=== PATIENT | male | born 1955 | race Caucasian/White ===

== ENCOUNTER 2024-10-12 16:37 | Inpatient (IN) | payer MEDICARE, OTHER, SELFPAY ==
--- NOTE | ~2024-10-12 | US_ITS ---
EXAMINATION: US venous doppler UE LT DATE: 10/16/2024 12:56 INDICATION: Left upper extremity edema TECHNIQUE: Terry scale images with and without compression and Doppler images of the left upper extrem ity veins were obtained. COMPARISON: None. FINDINGS: The left internal jugular vein, subclavian vein, axillary vein, brachial veins, basilic vein, cephali c vein, radial vein, and ulnar vein are patent. IMPRESSION: 1. Patent left upper extremity veins. No evidence of deep venous thrombosis. Reviewed, dictated and finalized at location A.
--- NOTE | ~2024-10-12 | CT_ITS ---
Procedure: CT UE LT w con Ordering provider: Eli Latif PA-C History: . likely septic bursitis . Comparison: None. Technique: Thin slice axial CT of the No IV contrast was given. Sagittal and coronal reformatted imag es were also obtained and reviewed. Radiation reduction technique utilized.The dose-length product wa s 661.35 mGy-cm. 100 mL Omnipaque 350 was given IV. Findings: BONES: Highly suggestive fracture in the radial head. JOINT SPACES: SOFT TISSUES: Fat stranding in subcutaneous tissues posteriorly with an abscess formation measuring 2 .6 x 3.6 cm is seen. Ossification of the insertion of the triceps tendon is also noted. IMPRESSION: Abscess seen posterior to the ulnar olecranon measuring 2.6 x 3.6 cm. Further evaluation advised. No evidence of osteomyelitis. Highly suggestive fracture of the radial head. Reviewed, dictated and finalized at location A. IMPRESSION: Abscess seen posterior to the ulnar olecranon measuring 2.6 x 3.6 cm. Further e valuation advised. No evidence of osteomyelitis. Highly suggestive fracture of the radial head.
--- NOTE | ~2024-10-12 | XR_ITS ---
XR elbow LT min 3V Ordering provider: Eli Latif PA-C History: . elbow edema and pain . Comparison: None FINDINGS: BONES: Highly suggestive fracture in the radial head. Clinical correlation and follow-up advised.. JOINT SPACES: Normal. SOFT TISSUES: Soft tissue swelling over the elbow area posteriorly with lucencies. No definite joint effusion. Ossification of the insertion of the triceps tendon. IMPRESSION: Highly suggestive fracture in the radial head. Soft tissue swelling seen posteriorly with lucencies which may indicate cellulitis. Clinical correlat ion advised. Reviewed, dictated and finalized at location A. IMPRESSION: Highly suggestive fracture in the radial head. Soft tissue swelling seen posteriorly with lucencies which may indicate celluli tis. Clinical correlation advised.
--- NOTE | ~2024-10-12 | US_ITS ---
LEFT UPPER EXTREMITY VENOUS ULTRASOUND Ordering provider: Eli Latif PA-C History: . edema, pain, erythema to LUE . Comparison: None. FINDINGS: --JUGULAR: Patent and free of thrombus. Normal compressibility, phasic flow and augmentation. --SUBCLAVIAN: Patent and free of thrombus. Normal compressibility, phasic flow and augmentation. --AXILLARY: Patent and free of thrombus. Normal compressibility, phasic flow and augmentation. --BRACHIAL: Patent and free of thrombus. Normal compressibility, phasic flow and augmentation. --CEPHALIC: Patent and free of thrombus. Normal compressibility, phasic flow and augmentation. --BASILIC: Patent and free of thrombus. Normal compressibility, phasic flow and augmentation. --RADIAL: Patent and free of thrombus. Normal compressibility, phasic flow and augmentation. --ULNAR: Patent and free of thrombus. Normal compressibility, phasic flow and augmentation. The IMPRESSION: Negative left upper extremity venous US. No deep vein thrombosis. Reviewed, dictated and finalized at location A.
--- NOTE | ~2024-10-12 | US_ITS ---
EXAMINATION: US elbow asp inj w image LT DATE: 10/14/2024 13:50 INDICATION: Infected left olecranon bursa TECHNIQUE: The procedure including the risks and benefits was discussed with the patient. Risks discu ssed included bleeding, infection and allergic reaction. The patient understood the risks and agreed to proceed. The skin overlying the left olecranon bursa was prepped and draped in usual sterile fash ion. Anesthetic was administered with 1% lidocaine subcutaneously. An 18 gauge needle was advanced under continuous ultrasound observation into the complex bursal fluid collection. 4.5 mm of opaque t hick yellow purulent appearing fluid was obtained sent to lab for Gram stain, cultures and crystal an alysis. The needle was removed and the entry site was cleaned and dressed. Post procedure ultrasoun d demonstrated no hemorrhage. FINDINGS: Ultrasound images demonstrate aspiration needle advanced into an approximately 4.5 x 3.5 x 1.5 cm complex hypoechoic fluid collection with multiple internal echogenic foci, several of these wi th posterior dirty shadowing suggesting tiny air bubbles. Subsequent images demonstrate the aspiratio n needle within the fluid collection. During the aspiration there was the sound of gas bubbles being sucked into the needle. IMPRESSION: 1. Successful Ultrasound-guided aspiration of a left olecranon bursa yielding 4.5 mL purulent appeari ng fluid suspicious for septic bursitis. Reviewed, dictated and finalized at location A. IMPRESSION: 1. Successful Ultrasound-guided aspiration of a left olecranon bursa yielding 4 .5 mL purulent appearing fluid suspicious for septic bursitis.
[2024-10-12 16:59] VITALS: BP 142/64; PULSE 82; RESP 16; TEMP 37; O2SAT 98
--- OUTSIDE RECORDS SUMMARY | 2024-10-12 17:45 | XMS_ITS | Encounter Summary ---
Author Name [facility] Organization [facility] [place] [facility] [place] Address [address] [place] [id number] Care Team Providers Care Mortgage Closing Clerk Name Role Phone KARLO OLVERA Primary Care Provider Unavailabl e JACOB SELLERS Primary Care Provider Unavailabl e Insurance Providers: All historical and current Section Date Range: From patient's date of to the date document was created. This section includes the names of all active insurance providers for the patient. Insurance Provider Type of Coverage Plan Name Start of Policy Coverage End of Policy Coverage Group Number Member ID Insurance Provider's Telephone Number Policy Bailey's Name Patient's Relationship to Policy Bailey CHUY KRAMER - [place]SE [place] SPECIAL [place] CHUY CASTILLO Dec 19, 2011 CHUY KRAMER [id number] [id number] KARLO FLOR PATIENT MEDICARE (WNR) MEDICARE (M) PART A Jan 13, 2018 PART A [id number] KARLO FLOR PATIENT MEDICARE (WNR) MEDICARE (M) PART B Jan 13, 2018 PART B [id number] [phone] KARLO FLOR PATIENT MEDICARE (WNR) MEDICARE (M) PART A Jan 13, 2018 PART A [id number] KARLO FLOR PATIENT Selected Encounter This section includes the information on record at [place] for the Encounter. Date/Time Encounter Type Encounter Description Reason Pro vider Source Jul 29, 2024 08:42 AM Outpatient Encounter COMMUNITY CARE CONSULT IHE Encounter Template Text not used by [facility] Plan of Treatment: Future Appointments (+ 6 months) and Future Tests (+/- 45 days) The Plan of Treatment section includes future care activities for the patient from all [place] treatmentfacilities. This section includes future appointments and future orders which are active, pending or scheduled. Future Appointments This section includes appointments that were scheduled to occur 6 months from the date of the Encounter, up to a maximum of 20 appointments. The data comes from all [facility] facilities. Appointment Date/Time Appointment Type Appointme nt Facility Name Aug 23, 2024 10:00 AM AMBULATORY - NONE [facility] Sep 11, 2024 09:05 AM AMBULATORY - NONE Rebeca RENTERIA [facility] September 23, 2024 10:30 AM AMBULATORY - NONE [place] [facility] Dec 04, 2024 09:30 AM AMBULATORY - NONE [place] [facility] Jan 01, 2025 10:30 AM AMBULATORY - NONE [place] [facility] Radiology Reports: +/- 30 days of the encounter Radiology Reports For cases when an order for radiology services may have been completed prior to the date of the Encounter, the report list includes the Radiology Reports that were completed up to 30 days before dateof the Encounter. For cases when an order for radiology services may have been completed after the date of the Encounter, the report list also includes the Radiology Reports that were completed up to30 days after date of the Encounter. The data comes from all [facility]. Date/Time Radiology Report Provider Source Aug 23, 2024 09:57 AM LDCT LUNG CANCER S CREENING: KARLO FLOR [id number] -[id number] M Exm Date: AUG 23, 2024@09:57 Req Phys: KARLO OLVERA Loc: [facility] RAD CT [facility] (Req'g Loc) Img Loc: [facility] CT Service: [place] [address] (Case [id number] COMPLETE)LDCT LUNG CANCER SCREENING (CT Detailed) CPT:51000 Reason for Study: Screen for Lung Cancer Clinical History: Clinical History: 1.Date of last CT Scan or Ultrasound PRIOR EXAM DATE:2023 Patient's age is between 50-80: Current age: 68 2.REQUESTED EXAM: CT THORAX LOW DOSE LUNG CANCER SCREENING 3.REASON FOR STUDY: Cancer Screening 4.PATIENT HISTORY: History of 20 or more packs/years of smoking, Patient is currently smoking or quit smoking within the last 15 years 5.Patient Weight: 206.7 lb [93.76 kg] (07/04/2023 08:01) I have read, understand and agree to the steps outlined in the pre-procedure info. Patient phone: Patient Address: [address] [place] [address] Report Status: Verified Date Reported: AUG 28, 2024 Date Verified: AUG 28, 2024 Consultative Sales Associate E-Sig:/ES/JACOB ARMENDARIZ DO Report: EXAM: LDCT LUNG CANCER SCREENING ADDITIONAL HISTORY: N/A COMPARISON: 08/05/2023 and imaging dating back 07/26/2021. PROTOCOL: Screening protocol, low dose, non-contrast CT chest was performed in accordance with Lung-Rads 2021. Additional coronal and sagittal reconstructions. MIP reconstructions were reviewed. Secondary computer-aided detection post-processing used. DOSE PARAMETERS: Dose summary: DLP: 58.1 mGy-cm INDEX NODULE: Location: Left Upper Lobe. Series: 3 Image: 116 Density: Solid. Solid diameter (average): 4.6 mm Other characteristics: N/A Change: Unchanged Comments: Accounting for differences in imaging technique quantitative algorithm methodology, direct comparison with long-term stability. OTHER NODULES: None. Changes prior granulomatous exposure. LUNG/AIRWAY FINDINGS: No lung consolidation. No pleural effusion or pneumothorax. Central airways patent. EMPHYSEMA: Mild HEART, MEDIASTINUM AND LYMPH NODES: No appreciable pericardial effusion. Tiny aortic valve calcification. Mitral annular calcifications. VISUAL CORONARY ARTERY CALCIFICATIONS: Severe UPPER ABDOMEN: Limited upper abdomen stable. Hepatic steatosis. BONES AND SOFT TISSUES: Degenerative changes. OTHER FINDINGS: None significant Impression: LUNG-RADS: 2: Benign FINDINGS: No new or enlarged lung nodules. RECOMMENDATION: One year follow-up low dose CT, if patient meets screening criteria. LUNG-RADS MODIFIER: N/A OTHER SIGNIFICANT FINDINGS AND RECOMMENDATIONS: None significant. Report Sign Date: 08/28/2024 14:58 EDT Jacob Armendariz Primary Diagnostic Code: LUNGRADS 2: BENIGN APPEARANCE OR BEHAVIOR Primary Interpreting Staff: JACOB ARMENDARIZ DO, RADIOLOGY (Consultative Sales Associate) /JACOB MARTIN [facility] Encounter Notes: All associated encounter notes This section contains the clinical notes associated to the Encounter. Date/Time Encounter Note(s) Provider Source Jul 29, 2024 08:42 AM NONVA NOTE: LOCAL TITLE: COMMUNITY CARE-CARE COORDINATION PLAN NOTE STANDARD TITLE: NONVA NOTE DATE OF NOTE: JUL 29, 2024@08:42 ENTRY DATE: JUL 29, 2024@08:42:38 AUTHOR: CHETAN AVILA EXP COSIGNER: URGENCY: STATUS: COMPLETED Community Care Consult: ENT Consult No: [id number] [facility] Referral #: [id number] Chief Complaint: Unspecified Disorder of Tympanic Membrane, right Ear Patient Admitted? No Level of Care Coordination Moderate Care Coordination was determined from: Chart Review Facility Community Care Office Contact Care Coordination Point of Contact: TEAM 9 ext 4 Services: Basic Care Coordination Services Monitoring and coordination of Rehab/PT Services Direct communication to referring provider Care management, if appropriate Plan: - Services as indicated above -REFDOCS available in RM -Pending contact and appointment. - care coordination communicated for [facility] staff to schedule. - Ongoing care and evaluation will be individualized based upon need and evaluation of recommendations of community provider /michelle/ CHETAN AVILA, RN REGISTERED NURSE Signed: 07/29/2024 08:43 CHETAN AVILA [facility]
--- OUTSIDE RECORDS SUMMARY | 2024-10-12 17:45 | XMS_ITS | Data Portability ---
Author Organization SANA [facility] [facility], [address] [place] [address] Assessment No assessment recorded. Plan of Treatment Reminders Order Date Submit Date Provider Last Modified By Organization Details Last Modified Time Details Appointments None recorded. Lab None recorded. Referral None recorded. Procedures None recorded. Surgeries None recorded. Imaging None recorded. Medication Orders Diflucan 150 mg tablet 2021 [id number], [address] , [place], [address], 09:44:22 ketoconazol e 2 % topical cream 2021 [id number], [address], [place], [address], 09:44:22 Patient TargetsNo targets recorded. Patient Instructions Encounter Date Encounter Id Patient Instructions Last Modified By Organization Details Last Modified Time 05/02/2022 [id number] hives: care instructions Not available 05/02/2022 09:44:21 Use Lotrimin if you run out of Ketoconazole cream. See PCP 1 week for clearing. Go to the ER if symptoms worsen. Not available 05/02/2022 09:47:42 Reason for Referral None Reported. Problems No Known Problems Medical Equipment None Reported. Allergies No known drug allergies Medications Name Sig Start Date Stop Date Status Note LastModified by Organization Details LastModified Time Diflucan 150 mg tablet Take 1 tablet every day by oral route for 7 days. 2021 active Not Available Not Available Not Avai lable ketoconazole 2 % topical cream Apply 1 application every day by topical route for 14 days. 2021 active Not Available Not Available Not Avai lable Vitals Date Recorded Body height Body mass index (BMI) Body weight Body temperature Oxygen saturation Oxygen saturation in Arterial blood by Pulse oximetry Heart rate Respiratory rate Systolic blood pressure Diastolic blood pressure Provider Name and Address Organization Details Last Updated DateTime 2 177.8 cm 29 kg/m2 02050.6 6 g 97.1 [degF] 100 % 100 % 64 /min 15 /min 124 mm[Hg] 80 mm[Hg] ONDINA Carter [facility] 09:29:02 Social History Question Answer Notes LastModified by [employer] Details LastModified Time Tobacco Smoking Status Current Every Day Smoker [facility] 05/02/2022 09:30:00 How Much Tobacco Do You Smoke? 1 PPD Information not available 05/02/2022 Are You Currently In School? No [email or web address] Information not available 05/02/2022 Sex: Unknown Functional Status Question Answer Note LastModified by [employer] Details LastModified Time Do you use any illicit or recreational drugs? No [email or web address] Information not available 05/02/2022 Do you or have you ever used any other forms of tobacco or nicotine? No [email or web address] Information not available 05/02/2022 What is your level of alcohol consumption? None [email or web address] Information not available 05/02/2022 Are you currently employed? No [email or web address] Information not available 05/02/2022 Mental Status None recorded. Family History Relationship Description Onset Age of this Age Resolved Age Notes LastModified by Organization Details LastModified Time Father No current problems or disability [email or web address] Not available 09:29:27 Mother No current problems or disability [email or web address] Not available 09:29:27 Medical History No medical history recorded. Immunizations Vaccine Type Date Status Note Provider Nam e and Address Organization Details Recorded Time Influenza, adjuvanted, quadrivalent, PF 02/28/2022 completed SANA [facility] 05/02/2022 09:29:11 COVID-19, mRNA, LNP-S, PF, 30 mcg/0.3 mL dose 02/10/2021 completed ONDINA ELDER null, [place] - [facility] 05/02/2022 09:29:11 COVID-19, mRNA, LNP-S, bivalent, PF, 30 mcg/0.3 mL dose 01/26/2022 completed ONDINA ELDER null, [place] - [facility] 05/02/2022 09:29:11 COVID-19, mRNA, LNP-S, PF, 30 mcg/0.3 mL dose 07/27/2020 completed ONDINA ESTRADAERS null, [place] - [facility] 05/02/2022 09:29:11 COVID-19, mRNA, LNP-S, PF, 30 mcg/0.3 mL dose 07/06/2020 completed ONDINA ELDER null, [place] - [facility] 05/02/2022 09:29:11 Influenza, split virus, quadrivalent, PF 02/28/2020 completed ONDINA ELDER null, [place] - [facility] 05/02/2022 09:29:11 COVID-19, mRNA, LNP-S, PF, 30 mcg/0.3 mL dose, bree-sucrose 08/27/2021 completed ONDINA ELDER null, [place] - [facility] 05/02/2022 09:29:11 Influenza, split virus, quadrivalent, PF 03/03/2020 completed ONDINA ELDER null, [place] - [facility] 05/02/2022 09:29:12 Past Encounters Encounter ID Performer Location Encounter Start Date Encounter Closed Date Diagnosis/Indication Diagnosis SNOMED-CT Code Diagnosis ICD10 Code Diagnosis Note [id number] [address] [facility] [address] [place] [address] 03/13/2021 08:51:04 03/13/2021 10:07:09 [id number] [address] [place] [address] 07/19/2021 09:05:34 07/19/2021 10:45:17 [id number] SANA REGALADO [address] [place] [address] 05/02/2022 08:58:39 05/02/2022 09:51:01 Onychomycosis due to dermatophyte 635361318 B35.1 Health Concerns Section Related Observation LastModified by Organization Detai ls LastModified Time None Recorded Concern Status LastModified by Organization Details LastModified Time None Recorded Advance Directives Directive None Recorded Payers Insurance Date Sequence Insurance Name Policy Number Policy Bailey Covered Member ID Bailey Member ID Guarantor Name 05/02/2022 1 [employer] (MEDICARE REPLACEMENT /ADVANTAGE - PPO) [id number] Pradip Florian [id number] Pradip Florian 05/24/2022 [facility] - [facility] Pradip Florian [id number] Pradip Florian Notes Date Note Type Note Provider Name and Address Organization Details Recorded Time 2 text/html UC Rash/Skin LesionReported bypatient.source of patient informationInformation obtained from patient; Patient arrived at Urgent Care ambulatory Context:no new detergent or skin product; no recent change in medication; no exposure to hair dye; no expsoure to new clothes/jewelry; no recent travel; no recent illness; no pets/animals in home; not affiliated with chemicals/pesticides Associated Symptoms:no fever; no fatigue SANA REGALADO [address] [place] [address] [place], [address], [place] - [facility] 05/02/2022 09:48:07
--- OUTSIDE RECORDS SUMMARY | 2024-10-12 17:45 | XMS_ITS | Encounter Summary ---
Author Name [facility] [place] Organization [facility] [place] Address [address] [place] [address] Care Team Providers Care Installer Helper Name Role Phone JACOB SELLERS Primary Care Provider KARLO Davis Primary Care Provider Unavailkerrie fenton Insurance Providers: All historical and current Section [...] to Policy Bailey CHUY KRAMER - JOSE [place] SPECIAL CLASS CHUY CASTILLO Dec 19, 2013 CHUY KRAMER [id number] KARLO FLOR PATIENT MEDICARE (WNR) MEDICARE (M) PART A Jan 13, 2018 PART A [id number] KARLO FLOR PATIENT MEDICARE (WNR) MEDICARE (M) PART A Jan 13, 2018 PART A [id number] KARLO FLOR PATIENT MEDICARE (WNR) MEDICARE (M) PART B Jan 13, 2018 PART B [id number] [phone] KARLO FLOR PATIENT Selected Encounter This section includes the information on record at [place] for the Encounter. Date/Time Encounter Type Encounter Description Reason Pro vider Source October 11, 2024 12:51 PM Outpatient Encounter TELEPHONE PRIMARY CARE IHE Encounter Template Text not used by [place] Plan of Treatment: Future Appointments (+ 6 months) and Future Tests (+/- 45 days) The Plan of Treatment section includes future care activities for the patient from all [place] treatmentfacilities. This section includes future appointments and future orders which are active, pending or scheduled. Future Appointments This section includes appointments that were scheduled to occur 6 months from the date of the Encounter, up to a maximum of 20 appointments. The data comes from all [place] treatment facilities. Appointment Date/Time Appointment Type Appointme nt Facility Name Dec 04, 2024 09:30 AM AMBULATORY - NONE [facility] Jan 01, 2025 10:30 AM AMBULATORY - NONE [facility] Active, Pending, and Scheduled Orders This section includes a listing of several types of active, pending, and scheduled orders, including clinic medications orders, diagnostic test orders, procedure orders and consult orders; where the start date of the order is 45 days before the date of the Encounter or 45 days after the date of theEncounter. The data comes from all [place] treatment facilities. Test Date/Time Test Type Test Details Facility Name September 18, 2024 07:38 AM Pharmacy - Clinic Medication Order [facility] Encounter Notes: All associated encounter notes This section contains the clinical notes associated to the Encounter. Date/Time Encounter Note(s) Provider Source October 11, 2024 12:51 PM PRIMARY CARE NOTE: LOCAL TITLE: PACT CARE COORDINATION NOTE STANDARD TITLE: PRIMARY CARE NOTE DATE OF NOTE: OCTOBER 11, 2024@12:51 ENTRY DATE: OCTOBER 11, 2024@12:54:14 AUTHOR: JEREMIAH SHELBY COSIGNER: URGENCY: STATUS: COMPLETED PACT CARE COORDINATION NOTE Has ADDENDA -- CARE COORDINATION -- CHART REVIEW - REASON: Received below notification from HAS: Other: [facility], AMELIA, REQUESTING APPOINTMENT FOR DUE TO LEFT ELBOW SWELLING/ PAIN. STATES VISITED URGENT CARE AND WAS TOLD TO F/U WITH PCP. PLEASE ADVISE, THANK YOU CAN Score and Probability of Event (1 year potential): 15/1% Plan of Care: Called to discuss/assess, no answer. Left HIPAA compliant message with contact information. Does the patient and/or caregiver understand the plan of care and agree with pharmacologic and non-pharmacologic strategies discussed? N/A FOLLOW-UP: Follow-up RN telephone call: When returns call, engineering technical writer will continue to reach out to to follow up TIME SPENT: 5-10 Minutes /michelle/ JEREMIAH SHELBY RN REGISTERED NURSE Signed: 10/11/2024 12:57 10/11/2024 ADDENDUM STATUS: UNSIGNED You may not VIEW this UNSIGNED Addendum. 10/11/2024 ADDENDUM STATUS: COMPLETED VET RETURNED YOUR CALL /michelle/ BECCA TIERNEY Signed: 10/11/2024 13:20 Receipt Acknowledged By: * AWAITING SIGNATURE * JEREMIAH SHELBY LORI A [facility]
--- OUTSIDE RECORDS SUMMARY | 2024-10-12 17:45 | XMS_ITS | Continuity of Care Document ---
Author Name [facility] Organization [facility] Care Team Providers Care Supervisor Blasting Name Role Phone [facility] Unavailable Unavailable Problems Combined list of problems from Department of Defense and Veterans Affairs facilities. It does not include entries that were removed or entered in error. Problem Status Onset Date Problem Type Date of Resolution Comments Source AAA screen nl 2017 Active Condition A pr 2022 Entered By: KARLO OLVERA Comment: Negative AAA screening 2022 [facility] Cigarette smoker Active Condition Jun 28, 2021 Entered By: KARLO OLVERA Comment: 1 ppd since 13 y/o [facility] Current every day smoker Active Condition [facility] Erectile Dysfunction (SCT 184368977) Active Condition [facility] Erectile dysfunction (SNOMED CT 264727623) Active Condition [facility] Exposure to potentially hazardous substance (SCT 007007097705455) Active Condition Aug 17 Entered By: ROSA FRIEDMAN Comment: Entered automatically through TAM Problem List documentation program [facility] Family history: Bowel cancer Active Condition Jun 28, 2021 Entered By: KARLO OLVERA Comment: father [facility] History of Polyp of Colon (SCT 389211864) Active Condition Jul 04, 2023 Entered By: KARLO OLVERA Comment: colon 20, repeat 7 yrs [facility] Hypogonadism Active Condition [facility] Impaired Fasting Glucose (SCT 657260197) Active Condition [facility] Lipidemia Active Condition [facility] Mixed Hyperlipidemia (SCT 608824476) Active Condition [facility] Orellana - Nonalcoholic Steatohepatitis (SCT 440562851) Active Condition [facility] Obesity (SCT 775107603) Active Condition [facility] Secondary erythrocytosis Active Condition [facility] Sensorineural hearing loss of bilateral ears Active Condition [facility] Urinary calculus Active Condition [facility] Diagnosis: ICD-10-CM R68.89 Other general symptoms and signs Active Diagnosis [facility] Diagnosis: ICD-10-CM Z23 Encounter for immunization Active Diagnosis [facility] Diagnosis: ICD-10-CM F17.210 Nicotine dependence, cigarettes, uncomplicated Active Diagnosis [facility] Diagnosis: ICD-10-CM H73.91 Unspecified disorder of tympanic membrane, right ear Active Diagnosis [facility] Diagnosis: ICD-10-CM E66.9 Obesity, unspecified Active Diagnosis [facility] Diagnosis: ICD-10-CM H60.391 Other infective otitis externa, right ear Active Diagnosis [facility] Diagnosis: ICD-10-CM H90.3 Sensorineural hearing loss, bilateral Active Diagnosis [facility] Diagnosis: ICD-10-CM E78.2 Mixed hyperlipidemia Active Diagnosis [facility] Medications Combined list of outpatient medications from Department of Defense and Veterans Affairs facilities.Medications provided include 1) outpatient medications from the last 15 months, and 2) patient-reported medications. Medication Details Route Status Patient Instructions Prescription Expires Prescription Number Last Dispense Date Ordering Provider Order Date Order Qty Source ASPIRIN 81MG TAB,EC TAKE ONE TABLET BY MOUTH EVERY DAY FOR HEART ORAL ACTIVE 06/12/2025 [id number] 5 JAK OLVERA 2024 120 [facility] ASPIRIN 81MG TAB,EC TAKE ONE TABLET BY MOUTH ONCE A DAY ORAL ACTIVE JACOB SELLERS MD 2015 [facility] ATORVASTATI N CA 40MG TAB TAKE ONE-HALF TABLET BY MOUTH DAILY AT BEDTIME FOR CHOLESTE ROL ORAL ACTIVE 06/12/2025 [id number] 5 JAK OLVERA 2024 45 [facility] ATORVASTATI N CA 40MG TAB TAKE ONE-HALF TABLET BY MOUTH DAILY AT BEDTIME FOR CHOLESTE ROL ORAL DISCONT INUED 07/04/2024 [id number] 4 JAK OLVERA 2023 45 [facility] AZITHROMYCI N 250MG TAB TAKE TWO TABLETS BY MOUTH DAILY FOR 1 DAY, THEN TAKE ONE TABLET EVERY DAY FOR 4 DAYS FOR INFECTIO N ORAL DISCONT INUED 02/02/2024 [id number] 4 JAK OLVERA 2023 6 [facility] AZITHROMYCI N 250MG TAB TAKE TWO TABLETS BY MOUTH DAILY FOR 1 DAY, THEN TAKE ONE TABLET EVERY DAY FOR 4 DAYS FOR INFECTIO N HERITA GE RX FOR RELEASE ONLY ORAL 02/07/2024 [id number] 4 JAK OLVERA 2023 6 [facility] AZITHROMYCI N 250MG TAB,PKT,6 TAKE CONTENTS OF PACK BY MOUTH DIRECTED FOR INFECTIO N ORAL DISCONT INUED (EDIT) 02/02/2024 [id number] 4 JAK OLVERA 2023 1 [facility] AZITHROMYCI N 250MG TAB,PKT,6 TAKE CONTENTS OF PACK BY MOUTH DIRECTED ORAL ACTIVE JAK OLVERA 2023 [facility] BETAMETHASO NE DIPROPIONAT E 0.05%/CLOTR IMAZOLE 1% CREAM,TOP APPLY SMALL AMOUNT TO AFFECTED AREA(S) EVERY DAY FOR SKIN CONDITIO N TOPICA L 07/31/2024 [id number] 4 JAK OLVERA 2023 45 [facility] FISH OIL 1000MG (500MG DHA/EPA) CAP,ORAL TAKE 1 CAPSULE BY MOUTH TWICE A DAY ORAL ACTIVE JACOB SELLERS MD 2017 [facility] HC 1%/N-MYCIN 3.5MG/POLYM YX 97825KCS/ML SUSP,OTIC INSTILL 3 DROPS IN EACH EAR EVERY 8 HOURS FOR EAR INFECTIO N HERITA GE RX FOR RELEASE ONLY AURICU LAR (OTIC) ACTIVE 01/08/2025 [id number] 4 JAK OLVERA 2023 10 [facility] HC 1%/N-MYCIN 3.5MG/POLYM YX 10705PJS/ML SUSP,OTIC INSTILL 3 DROPS IN EACH EAR EVERY 8 HOURS FOR EAR INFECTIO N AURICU LAR (OTIC) DISCONT INUED 01/03/2025 [id number] 4 JAK OLVERA 2023 10 [facility] HC 1%/N-MYCIN 3.5MG/POLYM YX 58827TMZ/ML SUSP,OTIC INSTILL 3 DROPS IN EACH EAR EVERY 8 HOURS AURICU LAR (OTIC) ACTIVE JAK OLVERA 2023 [facility] MULTIVITAMI NS CAP/TAB TAKE ONE TABLET BY MOUTH ONCE A DAY ORAL ACTIVE JACOB SELLERS MD 2015 [facility] SILDENAFIL CITRATE 100MG TAB TAKE ONE TABLET BY MOUTH ONE HOUR BEFORE SEXUAL RELATION S - FOR ERECTILE DYSFUNCT ION. DO NOT TAKE MORE THAN 1 DOSE PER DAY (*90 DAY SUPPLY*) ORAL ACTIVE 06/12/2025 [id number] 5 JAK OLVERA 2024 18 [facility] SILDENAFIL CITRATE 100MG TAB TAKE ONE TABLET BY MOUTH ONE HOUR BEFORE SEXUAL RELATION S - FOR ERECTILE DYSFUNCT ION. DO NOT TAKE MORE THAN 1 DOSE PER DAY (*90 DAY SUPPLY*) ORAL DISCONT INUED 08/01/2024 [id number] 4 JAK OLVERA 2023 18 [facility] Immunizations Combined list of available immunizations from the Department of Defense and Veterans Affairs facilities. Immunization Series Date Given Administered By Site Reaction Lot Number CVX Code Drug Bulk Plant Agent Status Comments Source ZOSTER RECOMBINANT 1 2024 ADELITA BAÑUELOS LEFT DELTO ID [id number] 187 complet ed [facility] COVID-19 (MODERNA), MRNA, LNP-S, PF, 50 MCG/0.5 ML (AGES 12+ YEARS) 1 2023 312 complet ed HISTORICA L INFORMATI ON - FROM OTHER REGISTRY, [facility] INFLUENZA, HIGH-DOSE, TRIVALENT, PF 1 2023 135 complet ed HISTORICA L INFORMATI ON - FROM OTHER REGISTRY, [facility] COVID-19 (MODERNA), MRNA, LNP-S, PF, 50 MCG/0.5 ML (AGES 12+ YEARS) 1 2022 LEFT DELTO ID 312 complet ed HISTORICA L INFORMATI ON - FROM OTHER REGISTRY, Lot#: [id number] Mfr: [employer] Expiratio n Date: 08/21/23 [facility] INFLUENZA, HIGH-DOSE, QUADRIVALENT 2022 LEFT DELTO ID 197 complet ed HISTORICA L INFORMATI ON - FROM OTHER REGISTRY, Lot#: [id number] Mfr: [employer] Expiratio n Date: 11/12/23 [facility] INFLUENZA VACCINE, QUADRIVALENT, ADJUVANTED 2021 205 complet ed [facility] COVID-19 (PFIZER), MRNA, LNP-S, BIVALENT BOOSTER, PF, 30 MCG/0.3 ML DOSE 1 2021 300 complet ed HISTORICA L INFORMATI ON - FROM OTHER REGISTRY, [place] [facility] COVID-19 (PFIZER), MRNA, LNP-S, PF, 30 MCG/0.3 ML DOSE, NUHA-SUCROSE (AGES 12+ YEARS) 4 2021 217 complet ed HISTORICA L INFORMATI ON - FROM OTHER REGISTRY, [facility] INFLUENZA, INJECTABLE, QUADRIVALENT, PRESERVATIVE FREE 2020 150 complet ed [facility] INFLUENZA, UNSPECIFIED FORMULATION 2020 88 complet ed [facility] COVID-19 (PFIZER), MRNA, LNP-S, PF, 30 MCG/0.3 ML DOSE 3 2020 208 complet ed [facility] COVID-19 (PFIZER), MRNA, LNP-S, PF, 30 MCG/0.3 ML DOSE 2 2020 208 complet ed [facility] COVID-19 (PFIZER), MRNA, LNP-S, PF, 30 MCG/0.3 ML DOSE 1 2020 208 complet ed [facility] INFLUENZA, INJECTABLE, QUADRIVALENT, PRESERVATIVE FREE 2019 150 complet ed HISTORICA L INFORMATI ON - FROM OTHER REGISTRY, [facility] INFLUENZA, INJECTABLE, QUADRIVALENT, PRESERVATIVE FREE 1 2019 150 complet ed HISTORICA L INFORMATI ON - FROM OTHER REGISTRY, [facility] INFLUENZA, UNSPECIFIED FORMULATION 2019 88 complet ed [facility] INFLUENZA, INJECTABLE, QUADRIVALENT, PRESERVATIVE FREE 2018 150 complet ed [facility] INFLUENZA, INJECTABLE, QUADRIVALENT, PRESERVATIVE FREE 2017 150 complet ed [facility] INFLUENZA, INJECTABLE, QUADRIVALENT, PRESERVATIVE FREE 2016 150 complet ed [facility] ZOSTER LIVE 2016 121 complet ed [place] [facility] PNEUMOCOCCAL POLYSACCHARID E [id number] 2015 33 complet ed yes [facility] INFLUENZA, SEASONAL, INJECTABLE, PRESERVATIVE FREE 2015 140 complet ed [facility] INFLUENZA, UNSPECIFIED FORMULATION 2015 88 complet ed [facility] PNEUMOCOCCAL CONJUGATE PCV 13 2015 133 complet ed [facility] INFLUENZA, UNSPECIFIED FORMULATION 2014 88 complet ed [facility] TDAP 2014 115 complet ed [facility] Results Combined list of recent chemistry, hematology and other laboratory results from Department of Defense and Veterans Affairs, ranging from 15 months to all on record, depending upon the facility. Order Name Results Value Reference Range Date Interpretation Specimen Comments Source COMPREHEN SIVE METABOLIC PANEL SODIUM [MOLES/VOL UME] IN SERUM OR PLASMA 140 meq/L 136 - 144 06/04 Specimen Type: PLASMA Comment: See EVAL Ordering Provider: ESTEE OLVERA Report Released Date/Time: Jul 04, 2023 08:32 AM Reporting Lab: [facility] [address] [facility] [address] Performing Lab: [facility] [address] [facility] [address] [facility] COMPREHEN SIVE METABOLIC PANEL POTASSIUM [MOLES/VOL UME] IN SERUM OR PLASMA 4.3 meq/L 3.6 - 5.1 06/04 Specimen Type: PLASMA Comment: See EVAL Ordering Provider: ESTEE OLVERA Report Released Date/Time: Jul 04, 2023 08:32 AM Reporting Lab: [facility] [address] [address] Performing Lab: [facility] [place] [phone] [place] [address] COMPREHEN SIVE METABOLIC PANEL CHLORIDE [MOLES/VOL UME] IN SERUM OR PLASMA 106 meq/L 98 - 107 06/04 Specimen Type: PLASMA Comment: See EVAL Ordering Provider: ESTEE OLVERA Report Released Date/Time: Jul 04, 2023 08:32 AM Reporting Lab: [facility] [place] [phone] Performing Lab: [facility] [place] [id number] [place] [address] COMPREHEN SIVE METABOLIC PANEL CARBON DIOXIDE, TOTAL [MOLES/VOL UME] IN SERUM OR PLASMA 23 meq/L 22 - 32 06/04 Specimen Type: PLASMA Comment: See EVAL Ordering Provider: ESTEE OLVERA Report Released Date/Time: Jul 04, 2023 08:32 AM Reporting Lab: [facility] [address] [address] Performing Lab: [facility] [place] [id number] [place] [address] COMPREHEN SIVE METABOLIC PANEL ANION GAP IN SERUM OR PLASMA 11 meq/L 4 - 13 06/04 Specimen Type: PLASMA Comment: See EVAL Ordering Provider: ESTEE OLVERA Report Released Date/Time: Jul 04, 2023 08:32 AM Reporting Lab: [facility] [address] [address] Performing Lab: [facility] [address] [id number] [place] [address] COMPREHEN SIVE METABOLIC PANEL GLUCOSE [MASS/VOLU ME] IN SERUM OR PLASMA 152 mg/dL 72 - 105 06/04 H Specimen Type: PLASMA Comment: See EVAL Ordering Provider: ESTEE OLVERA Report Released Date/Time: Jul 04, 2023 08:32 AM Reporting Lab: [facility] [address] [address] Performing Lab: [facility] [address] [address] [facility] COMPREHEN SIVE METABOLIC PANEL UREA NITROGEN [MASS/VOLU ME] IN SERUM OR PLASMA 10 mg/dL 7 - 25 06/04 Specimen Type: PLASMA Comment: See EVAL Ordering Provider: ESTEE OLVERA Report Released Date/Time: Jul 04, 2023 08:32 AM Reporting Lab: [facility] [address] [address] Performing Lab: [facility] [address] [address] [facility] COMPREHEN SIVE METABOLIC PANEL CREATININE [MASS/VOLU ME] IN SERUM OR PLASMA 0.84 mg/dL 0.7 - 1.3 06/04 Specimen Type: PLASMA Comment: See EVAL Ordering Provider: ESTEE OLVERA Report Released Date/Time: Jul 04, 2023 08:32 AM Reporting Lab: [facility] [address] [address] Performing Lab: [facility] [address] [address] [facility] COMPREHEN SIVE METABOLIC PANEL CALCIUM [MASS/VOLU ME] IN SERUM OR PLASMA 9.5 mg/dL 8.6 - 10.4 06/04 Specimen Type: PLASMA Comment: See EVAL Ordering Provider: ESTEE OLVERA Report Released Date/Time: Jul 04, 2023 08:32 AM Reporting Lab: [facility] [address] [address] Performing Lab: [facility] [address] [phone] [place] [address] COMPREHEN SIVE METABOLIC PANEL PROTEIN [MASS/VOLU ME] IN SERUM OR PLASMA 6.7 g/dL 6.0 - 8.2 06/04 Specimen Type: PLASMA Comment: See EVAL Ordering Provider: ESTEE OLVERA Report Released Date/Time: Jul 04, 2023 08:32 AM Reporting Lab: [facility] [place] [phone] Performing Lab: [facility] [place] [phone] [place] [address] COMPREHEN SIVE METABOLIC PANEL ALBUMIN [MASS/VOLU ME] IN SERUM OR PLASMA 4.2 g/dL 3.5 - 5.0 06/04 Specimen Type: PLASMA Comment: See EVAL Ordering Provider: ESTEE OLVERA Report Released Date/Time: Jul 04, 2023 08:32 AM Reporting Lab: [facility] [place] [phone] Performing Lab: [facility] [place] [phone] [place] [address] COMPREHEN SIVE METABOLIC PANEL ALKALINE PHOSPHATAS E [ENZYMATIC ACTIVITY/V OLUME] IN SERUM OR PLASMA 63 U/L 35 - 104 06/04 Specimen Type: PLASMA Comment: See EVAL Ordering Provider: ESTEE OLVERA Report Released Date/Time: Jul 04, 2023 08:32 AM Reporting Lab: [facility] [place] [phone] Performing Lab: [facility] [place] [phone] [place] [address] COMPREHEN SIVE METABOLIC PANEL ASPARTATE AMINOTRANS FERASE [ENZYMATIC ACTIVITY/V OLUME] IN SERUM OR PLASMA 25 U/L 13 - 36 06/04 Specimen Type: PLASMA Comment: See EVAL Ordering Provider: ESTEE OLVERA Report Released Date/Time: Jul 04, 2023 08:32 AM Reporting Lab: [facility] [address] [address] Performing Lab: [facility] [place] [phone] [place] [address] COMPREHEN SIVE METABOLIC PANEL ALANINE AMINOTRANS FERASE [ENZYMATIC ACTIVITY/V OLUME] IN SERUM OR PLASMA 49 U/L 7 - 49 06/04 Specimen Type: PLASMA Comment: See EVAL Ordering Provider: ESTEE OLVERA Report Released Date/Time: Jul 04, 2023 08:32 AM Reporting Lab: [facility] [place] [phone] Performing Lab: [facility] [address] COMPREHEN SIVE METABOLIC PANEL BILIRUBIN. TOTAL [MASS/VOLU ME] IN SERUM OR PLASMA 0.5 mg/dL 0.2 - 1.3 06/04 Specimen Type: PLASMA Comment: See EVAL Ordering Provider: ESTEE OLVERA Report Released Date/Time: Jul 04, 2023 08:32 AM Reporting Lab: [facility] [place] [phone] Performing Lab: [facility] [place] [phone] [place] [address] COMPREHEN SIVE METABOLIC PANEL GLOMERULAR FILTRATION RATE/1.73 SQ M.PREDICTE D [VOLUME RATE/AREA] IN SERUM, PLASMA OR BLOOD BY CREATININE -BASED FORMULA (CKD-EPI 2020) >=90 06/04 Specimen Type: PLASMA Comment: See EVAL Ordering Provider: ESTEE OLVERA Report Released Date/Time: Jul 04, 2023 08:32 AM Reporting Lab: [facility] [place] [address] Performing Lab: [facility] [place] [phone] [place] [address] CBC (AUTO DIFF) LEUKOCYTES [#/VOLUME] IN BLOOD 8.3 10*3/uL 4.00 - 10.60 06/04 Specimen Type: BLOOD No comment entered. Ordering Provider: ESTEE OLVERA Report Released Date/Time: Jul 04, 2023 08:32 AM Reporting Lab: [facility] [place] [address] Performing Lab: [facility] [address] CBC (AUTO DIFF) ERYTHROCYT ES [#/VOLUME] IN BLOOD BY AUTOMATED COUNT 5.38 10*6/uL 4.23 - 5.75 06/04 Specimen Type: BLOOD No comment entered. Ordering Provider: ESTEE OLVERA Report Released Date/Time: Jul 04, 2023 08:32 AM Reporting Lab: [facility] [place] [address] Performing Lab: [facility] [address] CBC (AUTO DIFF) HEMOGLOBIN [MASS/VOLU ME] IN BLOOD 15.1 g/dL 12.8 - 17.0 06/04 Specimen Type: BLOOD No comment entered. Ordering Provider: ESTEE OLVERA Report Released Date/Time: Jul 04, 2023 08:32 AM Reporting Lab: [facility] [place] [address] Performing Lab: [facility] [address] CBC (AUTO DIFF) HEMATOCRIT [VOLUME FRACTION] OF BLOOD 46.5 %{vol} 39.3 - 50.0 06/04 Specimen Type: BLOOD No comment entered. Ordering Provider: ESTEE OLVERA Report Released Date/Time: Jul 04, 2023 08:32 AM Reporting Lab: [facility] [place] [address] Performing Lab: [facility] [address] CBC (AUTO DIFF) MCV [ENTITIC VOLUME] BY AUTOMATED COUNT 86.4 fL 79.7 - 99.5 06/04 Specimen Type: BLOOD No comment entered. Ordering Provider: ESTEE OLVERA Report Released Date/Time: Jul 04, 2023 08:32 AM Reporting Lab: [facility] [place] [phone] Performing Lab: [facility] [place] [phone] CBC (AUTO DIFF) MCH [ENTITIC MASS] BY AUTOMATED COUNT 28.1 pg 25.5 - 33.6 06/04 Specimen Type: BLOOD No comment entered. Ordering Provider: ESTEE OLVERA Report Released Date/Time: Jul 04, 2023 08:32 AM Reporting Lab: [facility] [place] [phone] Performing Lab: [facility] [place] [id number] [place] [address] CBC (AUTO DIFF) MCHC [MASS/VOLU ME] BY AUTOMATED COUNT 32.5 g/dL 30.9 - 35.1 06/04 Specimen Type: BLOOD No comment entered. Ordering Provider: ESTEE OLVERA Report Released Date/Time: Jul 04, 2023 08:32 AM Reporting Lab: [facility] [place] [phone] Performing Lab: [facility] [place] [phone] [place] [address] CBC (AUTO DIFF) PLATELETS [#/VOLUME] IN BLOOD BY AUTOMATED COUNT 193 10*3/uL 160 - 410 06/04 Specimen Type: BLOOD No comment entered. Ordering Provider: ESTEE OLVERA Report Released Date/Time: Jul 04, 2023 08:32 AM Reporting Lab: [facility] [place] [phone] Performing Lab: [facility] [place] [phone] CBC (AUTO DIFF) ERYTHROCYT E DISTRIBUTI ON WIDTH [RATIO] BY AUTOMATED COUNT 40.8 fL 37.1 - 49.0 06/04 Specimen Type: BLOOD No comment entered. Ordering Provider: ESTEE OLVERA Report Released Date/Time: Jul 04, 2023 08:32 AM Reporting Lab: [facility] [place] [address] Performing Lab: [facility] [address] CBC (AUTO DIFF) PLATELET MEAN VOLUME [ENTITIC VOLUME] IN BLOOD BY AUTOMATED COUNT 11.4 fL 8.9 - 12.3 06/04 Specimen Type: BLOOD No comment entered. Ordering Provider: ESTEE OLVERA Report Released Date/Time: Jul 04, 2023 08:32 AM Reporting Lab: [facility] [place] [address] Performing Lab: [facility] [address] CBC (AUTO DIFF) NUCLEATED ERYTHROCYT ES [#/VOLUME] IN BLOOD BY AUTOMATED COUNT 0.00 10*3/uL 0.00 - 0.12 06/04 Specimen Type: BLOOD No comment entered. Ordering Provider: ESTEE OLVERA Report Released Date/Time: Jul 04, 2023 08:32 AM Reporting Lab: [facility] [place] [address] Performing Lab: [facility] [address] CBC (AUTO DIFF) NUCLEATED ERYTHROCYT ES [PRESENCE] IN BLOOD BY AUTOMATED COUNT 0.0 /100{WBC s} 0.0 - 0.2 06/04 Specimen Type: BLOOD No comment entered. Ordering Provider: ESTEE OLVERA Report Released Date/Time: Jul 04, 2023 08:32 AM Reporting Lab: [facility] [place] [address] Performing Lab: [facility] [address] CBC (AUTO DIFF) NEUTROPHIL S [#/VOLUME] IN BLOOD BY AUTOMATED COUNT 4.68 10*3/uL 2.2 - 7.4 06/04 Specimen Type: BLOOD No comment entered. Ordering Provider: ESTEE OLVERA Report Released Date/Time: Jul 04, 2023 08:32 AM Reporting Lab: [facility] [place] [address] Performing Lab: [facility] [address] CBC (AUTO DIFF) LYMPHOCYTE S [#/VOLUME] IN BLOOD BY AUTOMATED COUNT 2.22 10*3/uL 1.0 - 3.7 06/04 Specimen Type: BLOOD No comment entered. Ordering Provider: ESTEE OLVERA Report Released Date/Time: Jul 04, 2023 08:32 AM Reporting Lab: [facility] [place] [address] Performing Lab: [facility] [address] CBC (AUTO DIFF) MONOCYTES [#/VOLUME] IN BLOOD BY AUTOMATED COUNT 0.58 10*3/uL 0.3 - 0.9 06/04 Specimen Type: BLOOD No comment entered. Ordering Provider: ESTEE OLVERA Report Released Date/Time: Jul 04, 2023 08:32 AM Reporting Lab: [facility] [place] [address] Performing Lab: [facility] [address] CBC (AUTO DIFF) EOSINOPHIL S [#/VOLUME] IN BLOOD BY AUTOMATED COUNT 0.71 10*3/uL 0.0 - 0.5 06/04 H Specimen Type: BLOOD No comment entered. Ordering Provider: ESTEE OLVERA Report Released Date/Time: Jul 04, 2023 08:32 AM Reporting Lab: [facility] [place] [address] Performing Lab: [facility] [address] CBC (AUTO DIFF) BASOPHILS [#/VOLUME] IN BLOOD BY AUTOMATED COUNT 0.08 10*3/uL 0.0 - 0.1 06/04 Specimen Type: BLOOD No comment entered. Ordering Provider: ESTEE OLVERA Report Released Date/Time: Jul 04, 2023 08:32 AM Reporting Lab: [facility] [place] [address] Performing Lab: [facility] [address] CBC (AUTO DIFF) NEUTROPHIL S/100 LEUKOCYTES IN BLOOD 56.4 39.3 - 73.5 06/04 Specimen Type: BLOOD No comment entered. Ordering Provider: ESTEE OLVERA Report Released Date/Time: Jul 04, 2023 08:32 AM Reporting Lab: [facility] [place] [address] Performing Lab: [facility] [address] CBC (AUTO DIFF) LYMPHOCYTE S/100 LEUKOCYTES IN BLOOD BY AUTOMATED COUNT 26.8 16.2 - 48.2 06/04 Specimen Type: BLOOD No comment entered. Ordering Provider: ESTEE OLVERA Report Released Date/Time: Jul 04, 2023 08:32 AM Reporting Lab: [facility] [place] [id number] Performing Lab: [facility] [address] CBC (AUTO DIFF) MONOCYTES/ 100 LEUKOCYTES IN BLOOD BY AUTOMATED COUNT 7.0 5.2 - 11.4 06/04 Specimen Type: BLOOD No comment entered. Ordering Provider: ESTEE OLVERA Report Released Date/Time: Jul 04, 2023 08:32 AM Reporting Lab: [facility] [place] [id number] Performing Lab: [facility] [address] CBC (AUTO DIFF) EOSINOPHIL S/100 LEUKOCYTES IN BLOOD BY AUTOMATED COUNT 8.6 0.4 - 7.6 06/04 H Specimen Type: BLOOD No comment entered. Ordering Provider: ESTEE OLVERA Report Released Date/Time: Jul 04, 2023 08:32 AM Reporting Lab: [facility] [place] [id number] Performing Lab: [facility] [address] CBC (AUTO DIFF) BASOPHILS/ 100 LEUKOCYTES IN BLOOD BY AUTOMATED COUNT 1.0 0.1 - 1.2 06/04 Specimen Type: BLOOD No comment entered. Ordering Provider: ESTEE OLVERA Report Released Date/Time: Jul 04, 2023 08:32 AM Reporting Lab: [facility] [place] [address] Performing Lab: [facility] [address] CBC (AUTO DIFF) IMMATURE GRANULOCYT ES [#/VOLUME] IN BLOOD BY AUTOMATED COUNT 0.02 10*3/uL 0.0 - 0.1 06/04 Specimen Type: BLOOD No comment entered. Ordering Provider: ESTEE OLVERA Report Released Date/Time: Jul 04, 2023 08:32 AM Reporting Lab: [facility] [place] [address] Performing Lab: [facility] [address] CBC (AUTO DIFF) IMMATURE GRANULOCYT ES/100 LEUKOCYTES IN BLOOD 0.2 0.0 - 0.7 06/04 Specimen Type: BLOOD No comment entered. Ordering Provider: ESTEE OLVERA Report Released Date/Time: Jul 04, 2023 08:32 AM Reporting Lab: [facility] [address] [address] Performing Lab: [facility] [place] [phone] [place] [address] CBC (AUTO DIFF) SERVICE COMMENT DONE 06/04 Specimen Type: BLOOD No comment entered. Ordering Provider: ESTEE OLVERA Report Released Date/Time: Jul 04, 2023 08:32 AM Reporting Lab: [facility] [address] [address] Performing Lab: [facility] [address] [address] [facility] LIPID PANEL A, non-fasti ng CHOLESTERO L [MASS/VOLU ME] IN SERUM OR PLASMA 142 mg/dL 06/04 Specimen Type: PLASMA Comment: See EVAL Ordering Provider: ESTEE OLVERA Report Released Date/Time: Jul 04, 2023 08:32 AM Reporting Lab: [facility] [address] [address] Performing Lab: [facility] [place] [phone] [facility] LIPID PANEL A, non-fasti ng CHOLESTERO L IN HDL [MASS/VOLU ME] IN SERUM OR PLASMA 40 mg/dL 06/04 Specimen Type: PLASMA Comment: See EVAL Ordering Provider: ETSEE OLVERA Report Released Date/Time: Jul 04, 2023 08:32 AM Reporting Lab: [facility] [address] [address] Performing Lab: [facility] [address] [address] [facility] LIPID PANEL A, non-fasti ng CHOLESTERO L IN LDL [MASS/VOLU ME] IN SERUM OR PLASMA BY DIRECT ASSAY 79 mg/dL 06/04 Specimen Type: PLASMA Comment: See EVAL Ordering Provider: ESTEE OLVERA Report Released Date/Time: Jul 04, 2023 08:32 AM Reporting Lab: [facility] [place] [phone] Performing Lab: [facility] [place] [id number] [place] [address] LIPID PANEL A, non-fasti ng CHOLESTERO L.TOTAL/CH OLESTEROL IN HDL [MASS RATIO] IN SERUM OR PLASMA 3.6 0 - 4.9 06/04 Specimen Type: PLASMA Comment: See EVAL Ordering Provider: ESTEE OLVERA Report Released Date/Time: Jul 04, 2023 08:32 AM Reporting Lab: [facility] [address] [address] Performing Lab: [facility] [place] [id number] [place] [address] PROSTATIC SPECIFIC ANTIGEN PROSTATE SPECIFIC AG [MASS/VOLU ME] IN SERUM OR PLASMA 0.4 ng/mL 0.0 - 4.0 06/04 Specimen Type: SERUM Comment: FREE PSA NOT INDICATED IF TOTAL PSA IS <3.75 OR >10.5 ng/mL Ordering Provider: ESTEE OLVERA Report Released Date/Time: Jul 04, 2023 08:32 AM Reporting Lab: [facility] [address] [address] Performing Lab: [facility] [place] [id number] [place] [address] URINALYSI S, REFLEX C&S IF INDICATED COLOR OF URINE Light-Ye llow 06/04 Specimen Type: URINE Comment: Urine chemistry testing performed on [employer] AX-4030. Ordering Provider: ESTEE OLVERA Report Released Date/Time: Jul 04, 2023 08:32 AM Reporting Lab: [facility] [address] [address] Performing Lab: [facility] [address] URINALYSI S, REFLEX C&S IF INDICATED SPECIFIC GRAVITY OF URINE 1.021 1.001 - 1.035 06/04 Specimen Type: URINE Comment: Urine chemistry testing performed on [facility]. Ordering Provider: ESTEE OLVERA Report Released Date/Time: Jul 04, 2023 08:32 AM Reporting Lab: [facility] [place] [phone] Performing Lab: [facility] [address] URINALYSI S, REFLEX C&S IF INDICATED PH OF URINE 5.5 5.0 - 7.0 06/04 Specimen Type: URINE Comment: Urine chemistry testing performed on [facility] AX-4030. Ordering Provider: ESTEE OLVERA Report Released Date/Time: Jul 04, 2023 08:32 AM Reporting Lab: [facility] [place] [phone] Performing Lab: [facility] [address] URINALYSI S, REFLEX C&S IF INDICATED LEUKOCYTES [#/AREA] IN URINE SEDIMENT BY MICROSCOPY HIGH POWER FIELD 1 /[HPF] 0 - 5 06/04 Specimen Type: URINE Comment: Urine chemistry testing performed on [facility]. Ordering Provider: ESTEE OLVERA Report Released Date/Time: Jul 04, 2023 08:32 AM Reporting Lab: [facility] [place] [phone] Performing Lab: [facility] [place] [id number] [place] [address] URINALYSI S, REFLEX C&S IF INDICATED ERYTHROCYT ES [#/VOLUME] IN URINE SEDIMENT BY MICROSCOPY HIGH POWER FIELD 1 /[HPF] 0 - 3 06/04 Specimen Type: URINE Comment: Urine chemistry testing performed on [facility] AX-4030. Ordering Provider: ESTEE OLVERA Report Released Date/Time: Jul 04, 2023 08:32 AM Reporting Lab: [facility] [place] [phone] Performing Lab: [facility] [place] [phone] [place] [address] URINALYSI S, REFLEX C&S IF INDICATED APPEARANCE OF URINE CLEAR 06/04 Specimen Type: URINE Comment: Urine chemistry testing performed on [facility] AX-[facility]. Ordering Provider: ESTEE OLVERA Report Released Date/Time: Jul 04, 2023 08:32 AM Reporting Lab: [facility] [place] [phone] Performing Lab: [facility] [address] [phone] [place] [address] URINALYSI S, REFLEX C&S IF INDICATED EPITHELIAL CELLS.SQUA MOUS [#/AREA] IN URINE SEDIMENT BY MICROSCOPY HIGH POWER FIELD <1/[HPF] 0 - 10 06/04 Specimen Type: URINE Comment: Urine chemistry testing performed on [facility] AX-403. Ordering Provider: ESTEE OLVERA Report Released Date/Time: Jul 04, 2023 08:32 AM Reporting Lab: [facility] [address] [address] Performing Lab: [facility] [place] [phone] [place] [address] URINALYSI S, REFLEX C&S IF INDICATED ERYTHROCYT ES [PRESENCE] IN URINE Negative mg/dL 06/04 Specimen Type: URINE Comment: Urine chemistry testing performed on [facility] AX-4030. Ordering Provider: ESTEE OLVERA Report Released Date/Time: Jul 04, 2023 08:32 AM Reporting Lab: [facility] [address] [address] Performing Lab: [facility] [place] [phone] [place] [address] URINALYSI S, REFLEX C&S IF INDICATED LEUKOCYTE ESTERASE [PRESENCE] IN URINE BY TEST STRIP Negative 06/04 Specimen Type: URINE Comment: Urine chemistry testing performed on [employer] AX-4030. Ordering Provider: ESTEE OLVERA Report Released Date/Time: Jul 04, 2023 08:32 AM Reporting Lab: [facility] [address] [address] Performing Lab: [facility] [place] [phone] [place] [address] URINALYSI S, REFLEX C&S IF INDICATED PROTEIN [MASS/VOLU ME] IN URINE Negative mg/dL 06/04 Specimen Type: URINE Comment: Urine chemistry testing performed on [facility]. Ordering Provider: ESTEE OLVERA Report Released Date/Time: Jul 04, 2023 08:32 AM Reporting Lab: [facility] [address] [address] Performing Lab: [facility] [address] [phone] [place] [address] URINALYSI S, REFLEX C&S IF INDICATED GLUCOSE [MASS/VOLU ME] IN URINE BY TEST STRIP Normalmg /dL 06/04 Specimen Type: URINE Comment: Urine chemistry testing performed on [employer] AX-4030. Ordering Provider: ESTEE OLVERA Report Released Date/Time: Jul 04, 2023 08:32 AM Reporting Lab: [facility] [address] [address] Performing Lab: [facility] [address] [address] [facility] URINALYSI S, REFLEX C&S IF INDICATED KETONES [MASS/VOLU ME] IN URINE BY TEST STRIP 10 mg/dL 06/04 H Specimen Type: URINE Comment: Urine chemistry testing performed on [facility] AX-4030. Ordering Provider: ESTEE OLVERA Report Released Date/Time: Jul 04, 2023 08:32 AM Reporting Lab: [facility] [place] [phone] Performing Lab: [facility] [place] [phone] [place] [address] URINALYSI S, REFLEX C&S IF INDICATED BILIRUBIN. TOTAL [PRESENCE] IN URINE BY TEST STRIP Negative mg/dL 06/04 Specimen Type: URINE Comment: Urine chemistry testing performed on [facility]. Ordering Provider: ESTEE OLVERA Report Released Date/Time: Jul 04, 2023 08:32 AM Reporting Lab: [facility] [place] [phone] Performing Lab: [facility] [address] [phone] [place] [address] URINALYSI S, REFLEX C&S IF INDICATED NITRITE [PRESENCE] IN URINE BY TEST STRIP Negative mg/dL 06/04 Specimen Type: URINE Comment: Urine chemistry testing performed on [facility]. Ordering Provider: ESTEE OLVERA Report Released Date/Time: Jul 04, 2023 08:32 AM Reporting Lab: [facility] [place] [phone] Performing Lab: [facility] [address] [phone] [place] [address] URINALYSI S, REFLEX C&S IF INDICATED CALCIUM OXALATE CRYSTALS [PRESENCE] IN URINE SEDIMENT BY LIGHT MICROSCOPY OCC/[HPF ] 06/04 H Specimen Type: URINE Comment: Urine chemistry testing performed on [facility] AX-403. Ordering Provider: ESTEE OLVERA Report Released Date/Time: Jul 04, 2023 08:32 AM Reporting Lab: [facility] [address] [address] Performing Lab: [facility] [place] [phone] [place] [address] URINALYSI S, REFLEX C&S IF INDICATED UROBILINOG EN [MASS/VOLU ME] IN URINE Normalmg /dL 06/04 Specimen Type: URINE Comment: Urine chemistry testing performed on [employer] AX-4030. Ordering Provider: ESTEE OLVERA Report Released Date/Time: Jul 04, 2023 08:32 AM Reporting Lab: [facility] [address] [address] Performing Lab: [facility] [place] [id number] [place] [address] HCV PANEL (SCREENIN G) HEPATITIS C VIRUS AB [PRESENCE] IN SERUM Nonreact vamsi 07/04 Specimen Type: BLOOD No comment entered. Ordering Provider: ESTEE OLVERA Report Released Date/Time: Jul 04, 2023 08:40 AM Reporting Lab: [facility] [address] [address] Performing Lab: [facility] [place] [id number] [place] [address] COMPREHEN SIVE METABOLIC PANEL SODIUM [MOLES/VOL UME] IN SERUM OR PLASMA 140 meq/L 136 - 144 06/27 Specimen Type: PLASMA Comment: See EVAL Ordering Provider: ESTEE OLVERA Report Released Date/Time: Jul 05, 2022 09:22 AM Reporting Lab: [facility] [address] [address] Performing Lab: [facility] [place] [phone] [place] [address] COMPREHEN SIVE METABOLIC PANEL POTASSIUM [MOLES/VOL UME] IN SERUM OR PLASMA 4.1 meq/L 3.6 - 5.1 06/27 Specimen Type: PLASMA Comment: See EVAL Ordering Provider: ESTEE OLVERA Report Released Date/Time: Jul 05, 2022 09:22 AM Reporting Lab: [facility] [address] [address] Performing Lab: [facility] [place] [id number] [place] [address] COMPREHEN SIVE METABOLIC PANEL CHLORIDE [MOLES/VOL UME] IN SERUM OR PLASMA 105 meq/L 98 - 107 06/27 Specimen Type: PLASMA Comment: See EVAL Ordering Provider: ESTEE OLVERA Report Released Date/Time: Jul 05, 2022 09:22 AM Reporting Lab: [facility] [place] [phone] Performing Lab: [facility] [place] [id number] [place] [address] COMPREHEN SIVE METABOLIC PANEL CARBON DIOXIDE, TOTAL [MOLES/VOL UME] IN SERUM OR PLASMA 22 meq/L 22 - 32 06/27 Specimen Type: PLASMA Comment: See EVAL Ordering Provider: ESTEE OLVERA Report Released Date/Time: Jul 05, 2022 09:22 AM Reporting Lab: [facility] [place] [phone] Performing Lab: [facility] [place] [id number] [place] [address] COMPREHEN SIVE METABOLIC PANEL ANION GAP IN SERUM OR PLASMA 13 meq/L 4 - 13 06/27 Specimen Type: PLASMA Comment: See EVAL Ordering Provider: ESTEE OLVERA Report Released Date/Time: Jul 05, 2022 09:22 AM Reporting Lab: [facility] [address] [address] Performing Lab: [facility] [address] [phone] [place] [address] COMPREHEN SIVE METABOLIC PANEL GLUCOSE [MASS/VOLU ME] IN SERUM OR PLASMA 133 mg/dL 72 - 105 06/27 H Specimen Type: PLASMA Comment: See EVAL Ordering Provider: ESTEE OLVERA Report Released Date/Time: Jul 05, 2022 09:22 AM Reporting Lab: [facility] [address] [address] Performing Lab: [facility] [address] [address] [facility] COMPREHEN SIVE METABOLIC PANEL UREA NITROGEN [MASS/VOLU ME] IN SERUM OR PLASMA 12 mg/dL 7 - 25 06/27 Specimen Type: PLASMA Comment: See EVAL Ordering Provider: ESTEE OLVERA Report Released Date/Time: Jul 05, 2022 09:22 AM Reporting Lab: [facility] [address] [address] Performing Lab: [facility] [address] [address] [facility] COMPREHEN SIVE METABOLIC PANEL CREATININE [MASS/VOLU ME] IN SERUM OR PLASMA 0.96 mg/dL 0.7 - 1.3 06/27 Specimen Type: PLASMA Comment: See EVAL Ordering Provider: ESTEE OLVERA Report Released Date/Time: Jul 05, 2022 09:22 AM Reporting Lab: [facility] [address] [address] Performing Lab: [facility] [address] [address] [facility] COMPREHEN SIVE METABOLIC PANEL CALCIUM [MASS/VOLU ME] IN SERUM OR PLASMA 9.9 mg/dL 8.6 - 10.4 06/27 Specimen Type: PLASMA Comment: See EVAL Ordering Provider: ESTEE OLVERA Report Released Date/Time: Jul 05, 2022 09:22 AM Reporting Lab: [facility] [address] [address] Performing Lab: [facility] [address] [address] [facility] COMPREHEN SIVE METABOLIC PANEL PROTEIN [MASS/VOLU ME] IN SERUM OR PLASMA 7.4 g/dL 6.0 - 8.2 06/27 Specimen Type: PLASMA Comment: See EVAL Ordering Provider: ESTEE OLVERA Report Released Date/Time: Jul 05, 2022 09:22 AM Reporting Lab: [facility] [place] [phone] Performing Lab: [facility] [place] [id number] [place] [address] COMPREHEN SIVE METABOLIC PANEL ALBUMIN [MASS/VOLU ME] IN SERUM OR PLASMA 4.6 g/dL 3.5 - 5.0 06/27 Specimen Type: PLASMA Comment: See EVAL Ordering Provider: ESTEE OLVERA Report Released Date/Time: Jul 05, 2022 09:22 AM Reporting Lab: [facility] [place] [phone] Performing Lab: [facility] [place] [id number] [place] [address] COMPREHEN SIVE METABOLIC PANEL ALKALINE PHOSPHATAS E [ENZYMATIC ACTIVITY/V OLUME] IN SERUM OR PLASMA 66 U/L 35 - 104 06/27 Specimen Type: PLASMA Comment: See EVAL Ordering Provider: ESTEE OLVERA Report Released Date/Time: Jul 05, 2022 09:22 AM Reporting Lab: [facility] [place] [phone] Performing Lab: [facility] [place] [id number] [place] [address] COMPREHEN SIVE METABOLIC PANEL ASPARTATE AMINOTRANS FERASE [ENZYMATIC ACTIVITY/V OLUME] IN SERUM OR PLASMA 39 U/L 13 - 36 06/27 H Specimen Type: PLASMA Comment: See EVAL Ordering Provider: ESTEE OLVERA Report Released Date/Time: Jul 05, 2022 09:22 AM Reporting Lab: [facility] [address] [address] Performing Lab: [facility] [place] [id number] [place] [address] COMPREHEN SIVE METABOLIC PANEL ALANINE AMINOTRANS FERASE [ENZYMATIC ACTIVITY/V OLUME] IN SERUM OR PLASMA 78 U/L 7 - 49 06/27 H Specimen Type: PLASMA Comment: See EVAL Ordering Provider: ESTEE OLVERA Report Released Date/Time: Jul 05, 2022 09:22 AM Reporting Lab: [facility] [place] [phone] Performing Lab: [facility] [place] [phone] [place] [address] COMPREHEN SIVE METABOLIC PANEL BILIRUBIN. TOTAL [MASS/VOLU ME] IN SERUM OR PLASMA 0.5 mg/dL 0.2 - 1.3 06/27 Specimen Type: PLASMA Comment: See EVAL Ordering Provider: ESTEE OLVERA Report Released Date/Time: Jul 05, 2022 09:22 AM Reporting Lab: [facility] [place] [phone] Performing Lab: [facility] [place] [phone] [place] [address] COMPREHEN SIVE METABOLIC PANEL GLOMERULAR FILTRATION RATE/1.73 SQ M.PREDICTE D [VOLUME RATE/AREA] IN SERUM, PLASMA OR BLOOD BY CREATININE -BASED FORMULA (CKD-EPI 2020) 85 06/27 L Specimen Type: PLASMA Comment: See EVAL Ordering Provider: ESTEE OLVERA Report Released Date/Time: Jul 05, 2022 09:22 AM Reporting Lab: [facility] [place] [phone] Performing Lab: [facility] [place] [id number] [place] [address] LIPID PANEL A, non-fasti ng CHOLESTERO L [MASS/VOLU ME] IN SERUM OR PLASMA 166 mg/dL 06/27 Specimen Type: PLASMA Comment: See EVAL Ordering Provider: ESTEE OLVERA Report Released Date/Time: Jul 05, 2022 09:22 AM Reporting Lab: [facility] [place] [phone] Performing Lab: [facility] [place] [id number] [place] [address] LIPID PANEL A, non-fasti ng CHOLESTERO L IN HDL [MASS/VOLU ME] IN SERUM OR PLASMA 41 mg/dL 06/27 Specimen Type: PLASMA Comment: See EVAL Ordering Provider: ESTEE OLVERA Report Released Date/Time: Jul 05, 2022 09:22 AM Reporting Lab: [facility] [place] [phone] Performing Lab: [facility] [place] [id number] [place] [address] LIPID PANEL A, non-fasti ng CHOLESTERO L IN LDL [MASS/VOLU ME] IN SERUM OR PLASMA BY DIRECT ASSAY 91 mg/dL 06/27 Specimen Type: PLASMA Comment: See EVAL Ordering Provider: ESTEE OLVERA Report Released Date/Time: Jul 05, 2022 09:22 AM Reporting Lab: [facility] [place] [phone] Performing Lab: [facility] [place] [id number] [place] [address] LIPID PANEL A, non-fasti ng CHOLESTERO L.TOTAL/CH OLESTEROL IN HDL [MASS RATIO] IN SERUM OR PLASMA 4.0 0 - 4.9 06/27 Specimen Type: PLASMA Comment: See EVAL Ordering Provider: ESTEE OLVERA Report Released Date/Time: Jul 05, 2022 09:22 AM Reporting Lab: [facility] [address] [address] Performing Lab: [facility] [address] [phone] CBC (AUTO DIFF) LEUKOCYTES [#/VOLUME] IN BLOOD 8.1 10*3/uL 4.00 - 10.60 06/27 Specimen Type: BLOOD No comment entered. Ordering Provider: ESTEE OLVERA Report Released Date/Time: Jul 05, 2022 09:22 AM Reporting Lab: [facility] [place] [address] Performing Lab: [facility] [address] CBC (AUTO DIFF) ERYTHROCYT ES [#/VOLUME] IN BLOOD BY AUTOMATED COUNT 5.42 10*6/uL 4.23 - 5.75 06/27 Specimen Type: BLOOD No comment entered. Ordering Provider: ESTEE OLVERA Report Released Date/Time: Jul 05, 2022 09:22 AM Reporting Lab: [facility] [place] [address] Performing Lab: [facility] [address] CBC (AUTO DIFF) HEMOGLOBIN [MASS/VOLU ME] IN BLOOD 15.5 g/dL 12.8 - 17.0 06/27 Specimen Type: BLOOD No comment entered. Ordering Provider: ESTEE OLVERA Report Released Date/Time: Jul 05, 2022 09:22 AM Reporting Lab: [facility] [place] [address] Performing Lab: [facility] [address] CBC (AUTO DIFF) HEMATOCRIT [VOLUME FRACTION] OF BLOOD 47.8 %{vol} 39.3 - 50.0 06/27 Specimen Type: BLOOD No comment entered. Ordering Provider: ESTEE OLVERA Report Released Date/Time: Jul 05, 2022 09:22 AM Reporting Lab: [facility] [place] [address] Performing Lab: [facility] OF [address] [address] [facility] CBC (AUTO DIFF) MCV [ENTITIC VOLUME] BY AUTOMATED COUNT 88.2 fL 79.7 - 99.5 06/27 Specimen Type: BLOOD No comment entered. Ordering Provider: ESTEE OLVERA Report Released Date/Time: Jul 05, 2022 09:22 AM Reporting Lab: [facility] [place] [phone] Performing Lab: [facility] [place] [id number] [place] [address] CBC (AUTO DIFF) MCH [ENTITIC MASS] BY AUTOMATED COUNT 28.6 pg 25.5 - 33.6 06/27 Specimen Type: BLOOD No comment entered. Ordering Provider: ESTEE OLVERA Report Released Date/Time: Jul 05, 2022 09:22 AM Reporting Lab: [facility] [place] [phone] Performing Lab: [facility] [place] [id number] [place] [address] CBC (AUTO DIFF) MCHC [MASS/VOLU ME] BY AUTOMATED COUNT 32.4 g/dL 30.9 - 35.1 06/27 Specimen Type: BLOOD No comment entered. Ordering Provider: ESTEE OLVERA Report Released Date/Time: Jul 05, 2022 09:22 AM Reporting Lab: [facility] [place] [phone] Performing Lab: [facility] [place] [id number] [place] [address] CBC (AUTO DIFF) PLATELETS [#/VOLUME] IN BLOOD BY AUTOMATED COUNT 234 10*3/uL 160 - 410 06/27 Specimen Type: BLOOD No comment entered. Ordering Provider: ESTEE OLVERA Report Released Date/Time: Jul 05, 2022 09:22 AM Reporting Lab: [facility] [place] [phone] Performing Lab: [facility] [address] CBC (AUTO DIFF) ERYTHROCYT E DISTRIBUTI ON WIDTH [RATIO] BY AUTOMATED COUNT 43.6 fL 37.1 - 49.0 06/27 Specimen Type: BLOOD No comment entered. Ordering Provider: ESTEE OLVERA Report Released Date/Time: Jul 05, 2022 09:22 AM Reporting Lab: [facility] [place] [address] Performing Lab: [facility] [address] CBC (AUTO DIFF) PLATELET MEAN VOLUME [ENTITIC VOLUME] IN BLOOD BY AUTOMATED COUNT 10.7 fL 8.9 - 12.3 06/27 Specimen Type: BLOOD No comment entered. Ordering Provider: ESTEE OLVERA Report Released Date/Time: Jul 05, 2022 09:22 AM Reporting Lab: [facility] [place] [address] Performing Lab: [facility] [address] CBC (AUTO DIFF) NUCLEATED ERYTHROCYT ES [#/VOLUME] IN BLOOD BY AUTOMATED COUNT 0.00 10*3/uL 0.00 - 0.12 06/27 Specimen Type: BLOOD No comment entered. Ordering Provider: ESTEE OLVERA Report Released Date/Time: Jul 05, 2022 09:22 AM Reporting Lab: [facility] [place] [address] Performing Lab: [facility] [address] CBC (AUTO DIFF) NUCLEATED ERYTHROCYT ES [PRESENCE] IN BLOOD BY AUTOMATED COUNT 0.0 /100{WBC s} 0.0 - 0.2 06/27 Specimen Type: BLOOD No comment entered. Ordering Provider: ESTEE OLVERA Report Released Date/Time: Jul 05, 2022 09:22 AM Reporting Lab: [facility] [place] [id number] Performing Lab: [facility] [address] CBC (AUTO DIFF) NEUTROPHIL S [#/VOLUME] IN BLOOD BY AUTOMATED COUNT 4.02 10*3/uL 2.2 - 7.4 06/27 Specimen Type: BLOOD No comment entered. Ordering Provider: ESTEE OLVERA Report Released Date/Time: Jul 05, 2022 09:22 AM Reporting Lab: [facility] [place] [id number] Performing Lab: [facility] [address] CBC (AUTO DIFF) LYMPHOCYTE S [#/VOLUME] IN BLOOD BY AUTOMATED COUNT 2.75 10*3/uL 1.0 - 3.7 06/27 Specimen Type: BLOOD No comment entered. Ordering Provider: ESTEE OLVERA Report Released Date/Time: Jul 05, 2022 09:22 AM Reporting Lab: [facility] [place] [id number] Performing Lab: [facility] [address] CBC (AUTO DIFF) MONOCYTES [#/VOLUME] IN BLOOD BY AUTOMATED COUNT 0.58 10*3/uL 0.3 - 0.9 06/27 Specimen Type: BLOOD No comment entered. Ordering Provider: ESTEE OLVERA Report Released Date/Time: Jul 05, 2022 09:22 AM Reporting Lab: [facility] [place] [id number] Performing Lab: [facility] [place] [id number] [place] [address] CBC (AUTO DIFF) EOSINOPHIL S [#/VOLUME] IN BLOOD BY AUTOMATED COUNT 0.66 10*3/uL 0.0 - 0.5 06/27 H Specimen Type: BLOOD No comment entered. Ordering Provider: ESTEE OLVERA Report Released Date/Time: Jul 05, 2022 09:22 AM Reporting Lab: [facility] [place] [address] Performing Lab: [facility] [place] [address] [place] [address] CBC (AUTO DIFF) BASOPHILS [#/VOLUME] IN BLOOD BY AUTOMATED COUNT 0.08 10*3/uL 0.0 - 0.1 06/27 Specimen Type: BLOOD No comment entered. Ordering Provider: ESTEE OLVERA Report Released Date/Time: Jul 05, 2022 09:22 AM Reporting Lab: [facility] [place] [address] Performing Lab: [facility] [place] [address] [place] [address] CBC (AUTO DIFF) NEUTROPHIL S/100 LEUKOCYTES IN BLOOD 49.6 39.3 - 73.5 06/27 Specimen Type: BLOOD No comment entered. Ordering Provider: ESTEE OLVERA Report Released Date/Time: Jul 05, 2022 09:22 AM Reporting Lab: [facility] [place] [address] Performing Lab: [facility] [place] [address] [place] [address] CBC (AUTO DIFF) LYMPHOCYTE S/100 LEUKOCYTES IN BLOOD BY AUTOMATED COUNT 33.9 16.2 - 48.2 06/27 Specimen Type: BLOOD No comment entered. Ordering Provider: ESTEE OLVERA Report Released Date/Time: Jul 05, 2022 09:22 AM Reporting Lab: [facility] [place] [address] Performing Lab: [facility] [address] CBC (AUTO DIFF) MONOCYTES/ 100 LEUKOCYTES IN BLOOD BY AUTOMATED COUNT 7.2 5.2 - 11.4 06/27 Specimen Type: BLOOD No comment entered. Ordering Provider: ESTEE OLVERA Report Released Date/Time: Jul 05, 2022 09:22 AM Reporting Lab: [facility] [place] [address] Performing Lab: [facility] [address] CBC (AUTO DIFF) EOSINOPHIL S/100 LEUKOCYTES IN BLOOD BY AUTOMATED COUNT 8.1 0.4 - 7.6 06/27 H Specimen Type: BLOOD No comment entered. Ordering Provider: ESTEE OLVERA Report Released Date/Time: Jul 05, 2022 09:22 AM Reporting Lab: [facility] [place] [address] Performing Lab: [facility] [address] CBC (AUTO DIFF) BASOPHILS/ 100 LEUKOCYTES IN BLOOD BY AUTOMATED COUNT 1.0 0.1 - 1.2 06/27 Specimen Type: BLOOD No comment entered. Ordering Provider: ESTEE OLVERA Report Released Date/Time: Jul 05, 2022 09:22 AM Reporting Lab: [facility] [place] [address] Performing Lab: [facility] [address] CBC (AUTO DIFF) IMMATURE GRANULOCYT ES [#/VOLUME] IN BLOOD BY AUTOMATED COUNT 0.02 10*3/uL 0.0 - 0.1 06/27 Specimen Type: BLOOD No comment entered. Ordering Provider: ESTEE OLVERA Report Released Date/Time: Jul 05, 2022 09:22 AM Reporting Lab: [facility] [place] [address] Performing Lab: [facility] OF [address] [address] [facility] CBC (AUTO DIFF) IMMATURE GRANULOCYT ES/100 LEUKOCYTES IN BLOOD 0.2 0.0 - 0.7 06/27 Specimen Type: BLOOD No comment entered. Ordering Provider: ESTEE OLVERA Report Released Date/Time: Jul 05, 2022 09:22 AM Reporting Lab: [facility] [place] [phone] Performing Lab: [facility] [place] [id number] [place] [address] CBC (AUTO DIFF) SERVICE COMMENT DONE 06/27 Specimen Type: BLOOD No comment entered. Ordering Provider: ESTEE OLVERA Report Released Date/Time: Jul 05, 2022 09:22 AM Reporting Lab: [facility] [address] [address] Performing Lab: [facility] [address] [address] [facility] PROSTATIC SPECIFIC ANTIGEN PROSTATE SPECIFIC AG [MASS/VOLU ME] IN SERUM OR PLASMA 0.5 ng/mL 0.0 - 4.0 06/27 Specimen Type: SERUM Comment: FREE PSA NOT INDICATED IF TOTAL PSA IS <3.75 OR >10.5 ng/mL Ordering Provider: ESTEE OLVERA Report Released Date/Time: Jul 05, 2022 09:22 AM Reporting Lab: [facility] [address] [address] Performing Lab: [facility] [address] [address] [facility] Vital Signs Combined list of inpatient and outpatient Vital Signs from Department of Defense and Veterans Affairs, ranging from 12 months to all on record, depending upon the facility. Vital Sign Value Date Comments Source SYSTOLIC BLOOD PRESSURE 124 09/23/2024 10:40:28 [facility] DIASTOLIC BLOOD PRESSURE 82 09/23/2024 10:40:28 [facility] PULSE OXIMETRY 97 09/23/2024 10:40:28 [facility] WEIGHT 203 09/23/2024 10:40:28 [facility] BMI 32 kg/m2 09/23/2024 10:40:28 [facility] PAIN 0 09/23/2024 10:40:28 [facility] HEIGHT 67 09/23/2024 10:40:28 [facility] TEMPERATURE 97.7 09/23/2024 10:40:28 [facility] PULSE 61 09/23/2024 10:40:28 [facility] RESPIRATION 18 09/23/2024 10:40:28 [facility] SYSTOLIC BLOOD PRESSURE 148 07/18/2024 14:59:25 [facility] DIASTOLIC BLOOD PRESSURE 86 07/18/2024 14:59:25 [facility] PULSE OXIMETRY 95 07/18/2024 14:59:25 [facility] WEIGHT 205 07/18/2024 14:59:25 [facility] BMI 32 kg/m2 07/18/2024 14:59:25 [facility] PAIN 0 07/18/2024 14:59:25 [facility] HEIGHT 67 07/18/2024 14:59:25 [facility] TEMPERATURE 97.6 07/18/2024 14:59:25 [facility] PULSE 74 07/18/2024 14:59:25 [facility] RESPIRATION 18 07/18/2024 14:59:25 [facility] SYSTOLIC BLOOD PRESSURE 112 06/11/2024 09:53:26 [facility] DIASTOLIC BLOOD PRESSURE 76 06/11/2024 09:53:26 [facility] PULSE OXIMETRY 97 06/11/2024 09:53:26 [facility] WEIGHT 204.1 06/11/2024 09:53:26 [facility] BMI 32 kg/m2 06/11/2024 09:53:26 [facility] PAIN 0 06/11/2024 09:53:26 [facility] HEIGHT 67 06/11/2024 09:53:26 [facility] TEMPERATURE 96.9 06/11/2024 09:53:26 [facility] PULSE 60 06/11/2024 09:53:26 [facility] RESPIRATION 18 06/11/2024 09:53:26 [facility] SYSTOLIC BLOOD PRESSURE 116 01/03/2024 08:30:42 [facility] DIASTOLIC BLOOD PRESSURE 77 01/03/2024 08:30:42 [facility] PULSE OXIMETRY 96 01/03/2024 08:30:42 [facility] WEIGHT 205.7 01/03/2024 08:30:42 [facility] BMI 31 kg/m2 01/03/2024 08:30:42 [facility] PAIN 5 01/03/2024 08:30:42 [facility] HEIGHT 68 01/03/2024 08:30:42 [facility] TEMPERATURE 97.1 01/03/2024 08:30:42 [facility] PULSE 65 01/03/2024 08:30:42 [facility] RESPIRATION 18 01/03/2024 08:30:42 [facility] Encounters Combined list of: 1) Encounters from Department of Veterans Affairs facilities going backup to the last 18 months, not all [place] inpatient encounters are included; 2) Encounters from the Department of [facility] facilities going backup to 280 months. Location Location Details Encounter Type Encounter Number Reason For Visit Attending Provider ADM Date DC Date Status Disposition Source [facility] Outpatient Encounter [id number] JARROD PONCEULYSSES Gayle 06/28 [facility] OFFICE O/P EST LOW 20 MIN [id number] Diagnos is: ICD-10- CM E78.2 Mixed hyperli pidemia ESTEE OLVERA 07/04 [facility] HEARING AID EXAM BOTH EARS [id number] Diagnos is: ICD-10- CM H90.3 Sensori neural hearing loss, bilater al RAY,P AUL A 07/16 [facility] Outpatient Encounter [id number] 07/30 [facility] Outpatient Encounter [id number] 08/04 [facility] QNHP OL DIG ASSMT&MGMT 11-20 [id number] Diagnos is: ICD-10- CM F17.210 Nicotin e depende nce, cigaret tam, uncompl icated BUESS,TONY S 08/09 [facility] HEARING AID FITTING/CH ECKING [id number] Diagnos is: ICD-10- CM H90.3 Sensori neural hearing loss, bilater al MAJOR,TANG N ADAMA 08/10 [facility] [place] [place] OFFICE O/P EST LOW 20 MIN [id number] Diagnos is: ICD-10- CM H60.391 Other infecti ve otitis externa , right ear ESTEE OLVERA E 01/02 [facility] Outpatient Encounter [id number] 01/07 [facility] Outpatient Encounter [id number] 02/15 [facility] Outpatient Encounter [id number] 03/01 [facility] OFFICE O/P EST MOD 30 MIN [id number] Diagnos is: ICD-10- CM E66.9 Obesity , unspeci fied ESTEE OLVERA E 06/11 [facility] C.Chastity [facility] Outpatient Encounter [id number] 07/15 [facility] OFFICE O/P EST LOW 20 MIN [id number] Diagnos is: ICD-10- CM H73.91 Unspeci fied disorde r of tympani c membran e, right ear ESTEE OLVERA E 07/18 [facility] C.Chastity [facility] Outpatient Encounter [id number] 07/29 [facility] Outpatient Encounter [id number] 08/02 [facility] Outpatient Encounter [id number] 08/12 [facility] Outpatient Encounter [id number] 08/23 [facility] Re[facility]a [facility] NQHP OL DIG ASSMT&MGMT 11-20 [id number] Diagnos is: ICD-10- CM F17.210 Nicotin e depende nce, cigaret tam, uncompl icated JOSE,BONNER E E 08/28 [facility] Outpatient Encounter [id number] 09/09 [facility] Outpatient Encounter [id number] 09/11 [facility] Outpatient Encounter [id number] 09/20 [facility] OFF/OP EST SEPTEMBER X REQ PHY/QHP [id number] Diagnos is: ICD-10- CM Z23 Encount er for immuniz QUETA Galaviz 09/23 [facility] PH1 ASSMT&MGMT NQHP 5-10 [id number] Diagnos is: ICD-10- CM R68.89 Other general symptom s and signs JEREMIAH SHELBY 09/24 [facility] Outpatient Encounter [id number] 10/10 [facility] Outpatient Encounter [id number] 10/11 [facility] Social History Combined list of available smoking, tobacco, and other social history from Department of Defense and Veterans Affairs facilities. Social History Type Response Date Comment Sourc e Tobacco smoking status NHIS VA-TOBACCO USE ADVICE 07/18/2024 [facility] History of tobacco use VA-TOBACCO SCREEN FOLLOW-UP 07/18/2024 [facility] History of tobacco use VA-TOBACCO USE EVERY DAY CIGARETTES 06/11/2024 [facility] History of tobacco use VA-TOBACCO USER EVERY DAY 07/04/2023 [facility] History of tobacco use VA-TOBACCO USER EVERY DAY 07/05/2022 [facility] History of tobacco use VA-TOBACCO USER EVERY DAY 06/28/2021 [facility] History of tobacco use VA-TOBACCO USER EVERY DAY 04/06/2021 [facility] History of tobacco use VA-TOBACCO USER EVERY DAY 03/26/2020 [facility] History of tobacco use 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 Additional future care activities may be listed in the Assessment and Plan section. Date/Time Care Activity Care Activity Detail Facili ty 12/04/2024 AMBULATORY - NONE AMBULATORY - NONE [facility]
--- OUTSIDE RECORDS SUMMARY | 2024-10-12 17:45 | XMS_ITS | Encounter Summary ---
Author Name [facility] Organization [facility] [place] Address [address] [place] [address] Care Team Providers Care Hogshead Head Matcher Name Role Phone JACOB SELLERS Primary Care Provider KARLO Davis Primary Care Provider Daniel fenton Insurance Providers: All historical and current [...] to Policy Bailey CHUY KRAMER - JOSE OR SPECIAL CLASS CHUY CASTILLO Dec 19, 2011 CHUY KRAMER [id number] KARLO FLOR PATIENT MEDICARE (WNR) MEDICARE (M) PART A Jan 13, 2018 PART A [id number] KARLO FLOR PATIENT MEDICARE (WNR) MEDICARE (M) PART A Jan 13, 2018 PART A [id number] [phone] KARLO FLOR PATIENT MEDICARE (WNR) MEDICARE (M) PART B Jan 13, 2018 PART B [id number] KARLO FLOR PATIENT Selected Encounter This section includes the information on record at OR for the Encounter. Date/Time Encounter Type Encounter Description Reason Pro vider Source September 20, 2024 09:51 AM Outpatient Encounter GENERAL INTERNAL MEDICINE IHE Encounter Template Text not used by OR Plan of Treatment: Future Appointments (+ 6 months) and Future Tests (+/- 45 days) The Plan of Treatment section includes future care activities for the [facility] This section includes future appointments and future orders which are active, pending or scheduled. Future Appointments This section includes appointments that were scheduled to occur 6 months from the date of the Encounter, up to a maximum of 20 appointments. The data comes from all [facility]. Appointment Date/Time Appointment Type Appointme nt Facility Name September 23, 2024 10:30 AM AMBULATORY - NONE [facility] Dec 04, 2024 09:30 AM AMBULATORY - NONE [facility] Jan 01, 2025 10:30 AM AMBULATORY - NONE [facility] Active, Pending, and Scheduled Orders This section includes a listing of several types of active, pending, and scheduled orders, including clinic medications orders, diagnostic test orders, procedure orders and consult orders; where the start date of the order is 45 days before the date of the Encounter or 45 days after the date of theEncounter. The data comes from all [facility]. Test Date/Time Test Type Test Details Facility Name September 18, 2024 07:38 AM Pharmacy - Clinic Medication Order [facility] Radiology Reports: +/- 30 days of the [...] the Encounter. The data comes from all [facility]. Date/Time Radiology Report Provider Source Aug 23, 2024 09:57 AM LDCT LUNG CANCER S CREENING: KARLO FLOR [id number] -[id number] M Ex Date: AUG 23, 2024@09:57 Req Phys: KARLO OLVERA Loc: [facility] (Req'g Loc) Img Loc: [facility] CT Service: [place] [address] (Case [id number] COMPLETE)LDCT LUNG CANCER SCREENING (CT Detailed) CPT:57849 Reason for Study: Screen for Lung Cancer [...] the pre-procedure info. Patient phone: Patient Address: [address] [place] [address] Report Status: Verified Date Reported: AUG 28, 2024 Date Verified: AUG 28, 2024 Criminal Defense Lawyer E-Sig:/ES/JACOB ARMENDARIZ DO Report: EXAM: LDCT LUNG [...] Primary Interpreting Staff: JACOB ARMENDARIZ DO, RADIOLOGY (Criminal Defense Lawyer) /JACOB MARTIN [facility] Encounter Notes: All associated encounter notes This section contains the clinical notes associated to the Encounter. Date/Time Encounter Note(s) Provider Source September 20, 2024 09:51 AM TELEPHONE ENCOUNTE R NOTE: LOCAL TITLE: HAS TELEPHONE NOTE (TP) STANDARD TITLE: TELEPHONE ENCOUNTER NOTE DATE OF NOTE: SEPTEMBER 20, 2024@09:51 ENTRY DATE: SEPTEMBER 20, 2024@09:51:59 AUTHOR: SHIRA CORONA EXP COSIGNER: URGENCY: STATUS: COMPLETED HEALTH ADMINISTRATION SERVICE(HAS) TELEPHONE CALL Patient Name: KARLO FLOR Age: 69 Sex: MALE Patient Identification (include at least two): Full Name, Full SSN Primary Care Provider: KARLO OLVERA Caller: Mau Primary Language: Congolese Patient's Phone: Best Telephone Number to Reach Patient/Caller: DATE OF CALL: SEPTEMBER 20, 2024 REASON FOR CALL: Service: Primary Care (PACT) Patient is requesting to speak to Hogshead Head Matcher: PACT TEAM RN Patient states: Spouse (Aisha) called requesting to speak to PACT RN, wamted to discuss of veterans current issue with his ears. /michelle/ SHIRA CORONA LEAD NURSE RECEPTIONIST Signed: 09/20/2024 09:54 Receipt Acknowledged By: 09/24/2024 11:44 /michelle/ JEREMIAH SHELBY, RN REGISTERED NURSE SHIRA CORONA [facility]
--- OUTSIDE RECORDS SUMMARY | 2024-10-12 17:45 | XMS_ITS ---
Author Name [facility] Organization [facility] Address [address] [place] [id number] Care Team Providers Care Craft Demonstrator Name Role Phone KARLO OLVERA Primary Care [...] to Policy Bailey CHUY KRAMER - [facility] CHUY CASTILLO Dec 19, 2011 CHUY KRAMER [id number] [phone] [id number] KARLO FLOR PATIENT MEDICARE (WNR) MEDICARE (M) PART A Jan 13, 2018 PART A [id number] [phone] KARLO FLOR PATIENT MEDICARE (WNR) MEDICARE (M) PART B Jan 13, 2018 PART B [id number] KARLO FLOR PATIENT MEDICARE (WNR) MEDICARE (M) PART A Jan 13, 2018 PART A [id number] [phone] KARLO FLOR PATIENT Selected Encounter This section includes the information on record at ME for the Encounter. Date/Time Encounter Type Encounter Description Reason Provider Source Jul 18, 2024 03:00 PM OFFICE O/P EST LOW 20 MIN PRIMARY CARE/MEDICINE ICD-10-CM H73.91 Unspecified disorder of tympanic membrane, right ear KARLO OLVERA Jennifer Encounter Template Text not used by ME Assessments - Encounter Diagnoses This section includes the primary and secondary diagnoses documented for the Encounter. Date/Time Primary/Secondary Diagnosis Diagnosis Name Provider Source Jul 18, 2024 03:27 PM PRIMARY Unspecified disorder of tympanic membrane, right ear KARLO OLVERA [facility] Plan of Treatment: Future Appointments (+ 6 months) and Future Tests (+/- 45 days) The Plan of Treatment section includes future care activities for the [facility] This section includes future appointments and future orders which are active, pending or scheduled. Future Appointments This section includes appointments that were scheduled to occur 6 months from the date of the Encounter, up to a maximum of 20 appointments. The data comes from all [place] treatment facilities. Appointment Date/Time Appointment Type Appointme nt Facility Name Aug 23, 2024 10:00 AM AMBULATORY - NONE [facility] Sep 11, 2024 09:05 AM AMBULATORY - NONE Rebeca RENTERIA [facility] September 23, 2024 10:30 AM AMBULATORY - NONE [facility] Dec 04, 2024 09:30 AM AMBULATORY - NONE [facility] Jan 01, 2025 10:30 AM AMBULATORY - NONE [facility] Vital Signs: All taken on the encounter date This section contains inpatient and outpatient Vital Signs collected on the date of the Encounter. Date/Time Temperature Pulse Blood Pressure Respiratory Rate SP02 Pain Height Weight Body Mass Index Source Jul 18, 2024 02:59 PM 129/80 [facility] Jul 18, 2024 02:59 PM 97.6 74 148/86 18 95 0 67 205 32 [facility] Social History: Smoking Status (Most current) and Tobacco Use (All prior to encounter date) This section includes the most current, and the historical, smoking and tobacco- related health factors from the ME facility where the Encounter took place. Current Smoking Status This section includes the most current smoking, or tobacco-related health factor, from the ME facility where the Encounter took place. Date/Time Current Smoking Status Shahbaz luciano Jul 18, 2024 03:00 PM VA-TOBACCO SCREEN FOLLOW-UP [facility] Tobacco Use History This section includes a history of the smoking, or tobacco-related health factors, that were collected on or before the date of the Encounter. The data comes from the ME facility where the Encounter took place. Date/Time Smoking Status/Tobacco Use Comment F acility Jul 18, 2024 03:00 PM VA-TOBACCO USE ADVICE [facility] Jul 18, 2024 03:00 PM VA-TOBACCO USE BANK BOSS NO [facility] Jul 18, 2024 03:00 PM VA-TOBACCO USE MED NO [facility] Jun 11, 2024 08:00 AM VA-TOBACCO NEVER U SED OTHER TYPE [facility] Jun 11, 2024 08:00 AM VA-TOBACCO USE MARY RY DAY CIGARETTES [facility] Jul 04, 2023 08:00 AM VA-TOBACCO USE 30 YEARS OR MORE [facility] Jul 04, 2023 08:00 AM VA-TOBACCO USE ADVICE [facility] Jul 04, 2023 08:00 AM VA-TOBACCO USE BANK BOSS NO [facility] Jul 04, 2023 08:00 AM VA-TOBACCO USE MED NO [facility] Jul 04, 2023 08:00 AM VA-TOBACCO USE WI 30 MIN OF WAKEUP [facility] Jul 04, 2023 08:00 AM VA-TOBACCO USER EVERY DAY [facility] Jul 05, 2022 08:30 AM VA-TOBACCO USE 30 YEARS OR MORE [facility] Jul 05, 2022 08:30 AM VA-TOBACCO USE ADVICE [facility] Jul 05, 2022 08:30 AM VA-TOBACCO USE BANK BOSS NO [facility] Jul 05, 2022 08:30 AM VA-TOBACCO USE MED NO [facility] Jul 05, 2022 08:30 AM VA-TOBACCO USE WI 30 MIN OF WAKEUP [facility] Jul 05, 2022 08:30 AM VA-TOBACCO USER EVERY DAY [facility] Jun 28, 2021 02:30 PM VA-TOBACCO USE 30 YEARS OR MORE [facility] Jun 28, 2021 02:30 PM VA-TOBACCO USE ADVICE [facility] Jun 28, 2021 02:30 PM VA-TOBACCO USE BANK BOSS NO [facility] Jun 28, 2021 02:30 PM VA-TOBACCO USE MED NO [facility] Jun 28, 2021 02:30 PM VA-TOBACCO USE WI 30 MIN OF WAKEUP [facility] Jun 28, 2021 02:30 PM VA-TOBACCO USER EVERY DAY [facility] Encounter Notes: All associated encounter notes This section contains the clinical notes associated to the Encounter. Date/Time Encounter Note(s) Provider Source Jul 18, 2024 03:13 PM PRIMARY CARE PHYSICIAN NOTE: LOCAL TITLE: PRIMARY CARE (TP) STANDARD TITLE: PRIMARY CARE PHYSICIAN NOTE DATE OF NOTE: JUL 18, 2024@15:13 ENTRY DATE: JUL 18, 2024@15:13:20 AUTHOR: KARLO OLVERA COSIGNER: URGENCY: STATUS: COMPLETED Chief complaint: Ear problem HPI: Patient presents with approximately 7 to 10-day history of fullness in his ears right greater than left. States that he is unable to Valsalva or clear his ears. Longtime smoker. Otherwise no acute complaints. Medical history significant for the following problems: ROS: No fevers, chills, night sweats, headache, chest pain, shortness of breath, focal loss of sensation function, headache, nausea, vomiting, diarrhea, abdominal pain. Date Vital Measurement Qualifiers 07/18/2024 14:59 BP 129/80 07/18/2024 14:59 Temp F (C) 97.6 (36.4) Oral Pulse 74 Respir 18 Spontaneous Ht in (cm) 67 (170.18) Actual Wt lbs (kg)[BMI] 205 (92.99)[32*] Actual, Standing Weight Pain 0 POx (L/Min)(%) 95 67 in [170.2 cm] (07/18/2024 14:59) PHYSICAL EXAM: Gen: A+O x 3, not acutely ill-appearing. HEENT: NCAT TMs dull and retracted bilaterally. The right TM is distorted and discolored. NECK: Supple. HEART: Regular without MRG LUNGS: CTA B ABD: Nondistended Extremeties: Negative CCE Skin: General appearance normal. Warm, dry. No obvious rashes Current available diagnostic data reviewed Impressions: 1. Eustachian tube dysfunction, right greater than left 2. Disorder of the right tympanic membrane, for lack of a better term. Plan: 1. ENT referral 2. OTC Sudafed and antihistamines. 3. Strongly encouraged to stop smoking. Reminders: Medication Reconciliation Review: Outpatient Medication Reconciliation Medication Information Management Essential Medication List for Review Essential Medication List for Review with ([facility]/[employer]) was used to complete this medication review. MRT5 - Allergies/ADRs FACILITY ALLERGY/ADR -------- Rebeca RENTERIA [facility] No Known Allergies [facility], [facility] NO KNOWN ALLERGIES MRR1 - Med Reconciliation INCLUDED IN THIS LIST: Alphabetical list of active outpatient prescriptions dispensed from this ME (local) and dispensed from another [place] or [facility] facility (remote) as well as inpatient orders (local pending and active), local clinic medications, locally documented non-VA medications, and local prescriptions that have or been discontinued in the past 90 days. Non-VA Meds Last Documented On: Jan 08, 2024 NOTE The display of VA prescriptions dispensed from another ME or [facility] facility (remote) is limited to active outpatient prescription entries matched to National Drug File at the originating site and may not include some items such as investigational drugs, compounds, etc. NOT INCLUDED IN THIS LIST: Medications self-entered by the patient into personal health records (i.e. [employer]) are NOT included in this list. Non-VA medications documented outside this ME, remote inpatient orders (regardless of status) and remote clinic medications are NOT included in this list. The patient and provider must always discuss medications the patient is taking, regardless of where the medication was dispensed or obtained. OUTPT ASPIRIN 81MG EC TAB (Status = Active) TAKE ONE TABLET BY MOUTH EVERY DAY FOR HEART Rx# [id number] Last Released: 06/19/24 Qty/Days Supply: 120/ Rx Expiration Date: 06/12/25 Refills Remainin OUTPT ATORVASTATIN CALCIUM 40MG TAB (Status = Discontinued) TAKE ONE-HALF TABLET BY MOUTH DAILY AT BEDTIME FOR CHOLESTEROL Rx# [id number] Last Released: 03/19/24 Qty/Days Supply: 45 Rx Expiration Date: 07/04/24 Refills Remainin OUTPT ATORVASTATIN CALCIUM 40MG TAB (Status = Active) TAKE ONE-HALF TABLET BY MOUTH DAILY AT BEDTIME FOR CHOLESTEROL Rx# [id number] Last Released: 06/18/24 Qty/Days Supply: Rx Expiration Date: 06/12/25 Refills Remainin Non-VA AZITHROMYCIN 250MG TAB PKT 6 TAKE CONTENTS OF PACK BY MOUTH DIRECTED Jan 08, 2024 Patient is taking daily Indication: FOR INFECTION OUTPT BETAMETHASONE DIPR 0.05/CLOTRIM 1% CREAM (Status = Active) APPLY SMALL AMOUNT TO AFFECTED AREA(S) EVERY DAY FOR SKIN CONDITION Rx# [id number] Last Released: 09/14/23 Qty/Days Supply: 4560 Rx Expiration Date: 07/31/24 Refills Remainin Indication: FOR SKIN CONDITION Non-VA HC 1%/NEOMYCIN 3.5MG/POLYMYXIN OTIC SUSP INSTILL 3 DROPS IN EACH EAR EVERY 8 HOURS Jan 08, 2024 Patient is taking daily Indication: FOR EAR INFECTION OUTPT HC 1%/NEOMYCIN 3.5MG/POLYMYXIN OTIC SUSP (Status = Active) INSTILL 3 DROPS IN EACH EAR EVERY 8 HOURS FOR EAR INFECTION [facility] RX FOR RELEASE ONLY Rx# [id number] Last Released: Qty/Days Supply: 02/21 Rx Expiration Date: 01/08/25 Refills Remainin Indication: FOR EAR INFECTION OUTPT SILDENAFIL CITRATE 100MG TAB (Status = Discontinued) TAKE ONE TABLET BY MOUTH ONE HOUR BEFORE SEXUAL RELATIONS - FOR ERECTILE DYSFUNCTION. DO NOT TAKE MORE THAN 1 DOSE PER DAY (*90 DAY SUPPLY*) Rx# [id number] Last Released: 10/11/23 Qty/Days Supply: Rx Expiration Date: 08/01/24 Refills Remainin OUTPT SILDENAFIL CITRATE 100MG TAB (Status = Active) TAKE ONE TABLET BY MOUTH ONE HOUR BEFORE SEXUAL RELATIONS - FOR ERECTILE DYSFUNCTION. DO NOT TAKE MORE THAN 1 DOSE PER DAY (*90 DAY SUPPLY*) Rx# [id number] Last Released: 06/14/24 Qty/Days Supply: Rx Expiration Date: 06/12/25 Refills Remainin SUPPLIES END OF MEDICATION LIST Medication Reconciliation: Based on the medication review/history taken previously: No medications changes were required. Was medication education provided for new medications or changes to medications? (including medication name, dose, route, reason for use, and potential side effects). No new medications or medication changes during this encounter. The risks and benefits of this medication regimen were discussed with the patient, and the patient agrees with the current treatment plan. Patient declined After Visit Summary or another approved/reconciled medication list at the end of the visit. Tobacco Use Follow-Up: Patient was advised to stop smoking and/or using other tobacco products. Advised patient that a combination of behavioral counseling and FDA-approved cessation medications is the most effective way to ensure their success in stopping to smoke and/or using other tobacco products. The patient was not interested in additional information about behavioral counseling and other support strategies discussed. Informed patient that medications can help with cravings and withdrawal symptoms, and they greatly increase the chances of successfully stopping your tobacco use. The patient was not interested in a prescription for tobacco cessation medications. /michelle/ KARLO OLVERA DO PRIMARY CARE PHYSICIAN Signed: 07/18/2024 15:27 KARLO OLVERA [facility] Jul 18, 2024 03:03 PM PRIMARY CARE NURSING NOTE: LOCAL TITLE: PRIMARY CARE NURSING STANDARD TITLE: PRIMARY CARE NURSING NOTE DATE OF NOTE: JUL 18, 2024@15:03 ENTRY DATE: JUL 18, 2024@15:03:33 AUTHOR: SARAH CAMERON COSIGNER: URGENCY: STATUS: COMPLETED SUBJECTIVE: Source of Information: Patient Patient Identification: The patient has been identified by Full Name, Full SSN, Date of Preferred language for discussing healthcare needs: Slovenian Patient's reason for visit: Focus visit for R-ear issue. Patient allergies: Patient has answered NKA ABUSE AND WELL BEING SCREENING: Evidence of physical sexual abuse, neglect or exploitation? No The patient indicated that they and their close contacts have not traveled outside of the [place] in the past 21 days. The patient reports the following symptoms: No symptoms present The patient is not immunocompromised. The patient does not report having a history of Multi Drug Resistant Organism (MDRO) within the last five years. The patient does not report having been exposed to measles, chickenpox, or zoster in last 30 days. PAIN SCREEN: Verbal Patient self report Denies pain at this time. STRESS: The staff member completing this screening will ask the [place]: We all feel stress. It may become overwhelming at times. Would you like to speak with someone about your stress? Patient denied current stress. No further action required regarding stress. OBJECTIVE: Vital Signs: Temperature: 97.6 F [36.4 C] (07/18/2024 14:59) Pulse: 74 (07/18/2024 14:59) Respiration: 18 (07/18/2024 14:59) Blood Pressure: 129/80 (07/18/2024 14:59) Weight: 205 lb [92.99 kg] (07/18/2024 14:59) Height: 67 in [170.2 cm] (07/18/2024 14:59) Pulse Ox: 95% (L/MIN)(%) (07/18/2024 14:59) Pain: 0 (07/18/2024 14:59) PLAN: Will be seen by provider. Clinical Reminders Herpes Zoster (Shingles) Vaccine: The patient declines to receive the recommended dose of zoster (shingles) vaccine. Immunization: ZOSTER RECOMBINANT Refusal Reason: PATIENT DECISION Patient refuses all immunization(s) in the ZOSTER group Date Documented: 07/18/24 15:10 Pneumococcal PPSV23 (Pneumovax): The patient declines to receive the recommended dose of PPSV23 vaccine. Immunization: PNEUMOCOCCAL POLYSACCHARIDE PPV23 Refusal Reason: PATIENT DECISION Patient refuses all immunization(s) in the PneumoPPV group Date Documented: 07/18/24 15:11 Td/Tdap Immunization: The patient declines to receive the recommended dose of Td/Tdap vaccine. Immunization: TD(ADULT) UNSPECIFIED FORMULATION Refusal Reason: PATIENT DECISION Patient refuses all immunization(s) in the Td group Date Documented: 07/18/24 15:13 /michelle/ ULYSSES MARCH SUPPORT GROUP MANAGER Signed: 07/18/2024 15:13 ULYSSES ALCAZAR [facility]
--- OUTSIDE RECORDS SUMMARY | 2024-10-12 17:45 | XMS_ITS | Encounter Summary ---
Author Name [facility] Organization [facility] Address [address] [place] [id number] Care Team Providers Care Wood Room Supervisor Name Role Phone JACOB SELLERS Primary Care [...] to Policy Bailey CHUY KRAMER - JOSE [place] [facility] CHUY CASTILLO Dec 19, 2011 CHUY KRAMER [id number] MARLONBROOKS KARLO PATIENT MEDICARE (WNR) MEDICARE (M) PART A Jan 13, 2018 PART A [id number] KARLO FLOR PATIENT MEDICARE (WNR) MEDICARE (M) PART A Jan 13, 2018 PART A [id number] KARLO FLOR PATIENT MEDICARE (WNR) MEDICARE (M) PART B Jan 13, 2018 PART B [id number] KARLO FLOR PATIENT Selected Encounter This section includes the information on record at [place] for the Encounter. Date/Time Encounter Type Encounter Description Reason Provider Source Jun 11, 2024 08:00 AM OFFICE O/P EST MOD 30 MIN PRIMARY CARE/MEDICINE ICD-10-CM E66.9 Obesity, unspecified KARLO OLVERA Jennifer Encounter Template Text not used by [place] Assessments - Encounter Diagnoses This section includes the primary and secondary diagnoses documented for the Encounter. Date/Time Primary/Secondary Diagnosis Diagnosis Name Provider Source Jun 11, 2024 08:45 AM PRIMARY Obesity, unspecified MANUEL OLVERA [facility] Jun 11, 2024 08:45 AM SECONDARY Mixed hyperlipidemia MANUEL OLVERA [facility] Jun 11, 2024 08:45 AM SECONDARY Nicotine dependence, cigarettes, uncomplicated PALOS HEIGHTSMANUEL [facility] Plan of Treatment: Future Appointments (+ 6 months) and Future Tests (+/- 45 days) The Plan of Treatment section includes future care activities for the patient from all [place] treatmentfacilities. This section includes future appointments and future orders which are active, pending or scheduled. Future Appointments This section includes appointments that were scheduled to occur 6 months from the date of the Encounter, up to a maximum of 20 appointments. The data comes from all [place] treatment facilities. Appointment Date/Time Appointment Type Appointme nt Facility Name Jul 18, 2024 03:00 PM AMBULATORY - NONE [facility] Aug 23, 2024 10:00 AM AMBULATORY - NONE [facility] Sep 11, 2024 09:05 AM AMBULATORY - NONE [facility] September 23, 2024 10:30 AM AMBULATORY - NONE [facility] Dec 04, 2024 09:30 AM AMBULATORY - NONE [facility] Lab Results: +/- 30 days of the encounter This section includes the Chemistry and Hematology Lab Results on record with [place] for the patient. Radiology Reports and Pathology Reports are provided separately, in subsequent sections. Lab Results This section contains the Chemistry/Hematology Results that were resulted 30 days before or 30 daysafter the date of the Encounter. Date/Time Source Result Type Result - Unit Interpretation Reference Range Specimen Type Comment Jun 04, 2024 07:47 AM [facility] COMPREHENSIVE METABOLIC PANEL PLASMA Specimen Type: PLASMA Comment: See EVAL Ordering Provider: KARLO OLVERA Report Released Date/Time: Jul 04, 2023 08:32 AM Reporting Lab: [facility] [address] [id number] Performing Lab: [facility] [address] [id number] SODIUM 140 meq/L 136-144 POTASSIUM 4.3 meq/L 3.6-5.1 CHLORIDE 106 meq/L 98-107 CARBON DIOXIDE 23 meq/L 22-32 ANION GAP 11 meq/L 4-13 GLUCOSE 152 mg/dL H 72-105 UREA NITROGEN 10 mg/dL 7-25 CREATININE 0.84 mg/dL 0.7-1.3 CALCIUM 9.5 mg/dL 8.6-10.4 TOTAL PROTEIN 6.7 g/dL 6.0-8.2 ALBUMIN 4.2 g/dL 3.5-5.0 ALKALINE PHOSPHATASE 63 U/L 35-104 AST 25 U/L 13-36 ALT 49 U/L 7-49 BILIRUBIN,TOTAL 0.5 mg/dL 0.2-1.3 eGFR (CKD-EPI 2020) >=90 See AISHWARYA Jun 04, 2024 07:47 AM [facility] CBC (AUTO DIFF) BLOOD Specimen Type: BLOOD No comment entered. Ordering Provider: KARLO OLVERA Report Released Date/Time: Jul 04, 2023 08:32 AM Reporting Lab: [facility] [address] [id number] Performing Lab: [facility] [address] [address] WBC 8.3 10*3/uL 4.00-10.60 RBC 5.38 10*6/uL 4.23-5.75 HGB 15.1 g/dL 12.8-17.0 HCT 46.5 %{vol} 39.3-50.0 MCV 86.4 fL 79.7-99.5 MCH 28.1 pg 25.5-33.6 MCHC 32.5 g/dL 30.9-35.1 PLT 193 10*3/uL 160-410 RDWSD 40.8 fL 37.1-49.0 MPV 11.4 fL 8.9-12.3 NRBC# 0.00 10*3/uL 0.00-0.12 NRBC% 0.0 /100{WBCs} 0.0-0.2 NE# 4.68 10*3/uL 2.2-7.4 LY# 2.22 10*3/uL 1.0-3.7 MO# 0.58 10*3/uL 0.3-0.9 EO# 0.71 10*3/uL H 0.0-0.5 BA# 0.08 10*3/uL 0.0-0.1 NE% 56.4 39.3-73.5 LY% 26.8 16.2-48.2 MO% 7.0 5.2-11.4 EO% 8.6 H 0.4-7.6 BA% 1.0 0.1-1.2 IMM GRAN# 0.02 10*3/uL 0.0-0.1 IMM GRAN% 0.2 0.0-0.7 CBC COMPLETE DONE Jun 04, 2024 07:47 AM [facility] LIPID PANEL A, non-fasting PLASMA Specimen Typ e: PLASMA Comment: See EVAL Ordering Provider: KARLO OLVERA Report Released Date/Time: Jul 04, 2023 08:32 AM Reporting Lab: [facility] [address] [address] Performing Lab: [facility] [address] [address] CHOLESTEROL 142 mg/dL See EVAL HDL CHOLESTEROL 40 mg/dL See EVAL LDL CHOLESTEROL 79 mg/dL See EVAL TC/HDL CHOLESTEROL RATIO 3.6 0-4.9 Jun 04, 2024 07:47 AM [facility] PROSTATIC SPECIFIC ANTIGEN SERUM Specimen Typ e: SERUM Comment: FREE PSA NOT INDICATED IF TOTAL PSA IS <3.75 OR >10.5 ng/mL Ordering Provider: KARLO OLVERA Report Released Date/Time: Jul 04, 2023 08:32 AM Reporting Lab: [facility] [address] [address] Performing Lab: [facility] [address] [address] PROSTATIC SPECIFIC ANTIGEN 0.4 ng/mL 0.0 -4.0 Jun 04, 2024 07:47 AM [facility] URINALYSIS, REFLEX C&S IF INDICATED URINE Spe cimen Type: URINE Comment: Urine chemistry testing performed on [employer] [id number]. Ordering Provider: KARLO OLVERA Report Released Date/Time: Jul 04, 2023 08:32 AM Reporting Lab: [facility] [address] [facility] [address] Performing Lab: [facility] [address] [facility] [address] URINE COLOR Light-Yellow Colorless/Yello w SPECIFIC GRAVITY 1.021 1.001-1.035 URINE PH 5.5 5.0-7.0 URINE WBC/HPF 1 /[HPF] 0-5 URINE RBC/HPF 1 /[HPF] 0-3 CLARITY CLEAR CLEAR SQUAMOUS EPITHELIAL CELLS <1 /[HPF] 0-10 URINE BLOOD Negative mg/dL Negative-TRAC E URINE LEUKOCYTE ESTERASE Negative URINE PROTEIN Negative mg/dL URINE GLUCOSE Normal mg/dL URINE KETONES 10 mg/dL H URINE BILIRUBIN Negative mg/dL Negative URINE NITRITES Negative mg/dL Negative CALCIUM OXALATE CRYSTALS OCC /[HPF] H None seen UROBILINOGEN (mg) Normal mg/dL NORMAL Vital Signs: All taken on the encounter date This section contains inpatient and outpatient Vital Signs collected on the date of the Encounter. Date/Time Temperature Pulse Blood Pressure Respiratory Rate SP02 Pain Height Weight Body Mass Index Source Jun 11, 2024 09:53 AM 96.9 60 112/76 18 97 0 67 204.1 32 [facility] Social History: Smoking Status (Most current) and Tobacco Use (All prior to encounter date) This section includes the most current, and the historical, smoking and tobacco- related health factors from the [place] facility where the Encounter took place. Current Smoking Status This section includes the most current smoking, or tobacco-related health factor, from the [place] facility where the Encounter took place. Date/Time Current Smoking Status Comment Sotero ity Jun 11, 2024 08:00 AM [place]-TOBACCO USE MARY RY DAY CIGARETTES [facility] Tobacco Use History This section includes a history of the smoking, or tobacco-related health factors, that were collected on or before the date of the Encounter. The data comes from the [place] facility where the Encounter took place. Date/Time Smoking Status/Tobacco Use Comment F acility Jun 11, 2024 08:00 AM [place]-TOBACCO USE MARY RY DAY CIGARETTES [facility] Jul 04, 2023 08:00 AM [facility]-TOBACCO USE 30 YEARS OR MORE [facility] Jul 04, 2023 08:00 AM VA-TOBACCO USE ADVICE [facility] Jul 04, 2023 08:00 AM VA-TOBACCO USE ESCROW PROCESSOR NO [facility] Jul 04, 2023 08:00 AM VA-TOBACCO USE MED NO [facility] Jul 04, 2023 08:00 AM VA-TOBACCO USE WI 30 MIN OF WAKEUP [facility] Jul 04, 2023 08:00 AM VA-TOBACCO USER EVERY DAY [facility] Jul 05, 2022 08:30 AM VA-TOBACCO USE 30 YEARS OR MORE [facility] Jul 05, 2022 08:30 AM VA-TOBACCO USE ADVICE [facility] Jul 05, 2022 08:30 AM VA-TOBACCO USE ESCROW PROCESSOR NO [facility] Jul 05, 2022 08:30 AM VA-TOBACCO USE MED NO [facility] Jul 05, 2022 08:30 AM VA-TOBACCO USE WI 30 MIN OF WAKEUP [facility] Jul 05, 2022 08:30 AM VA-TOBACCO USER EVERY DAY [facility] Jun 28, 2021 02:30 PM VA-TOBACCO USE 30 YEARS OR MORE [facility] Jun 28, 2021 02:30 PM VA-TOBACCO USE ADVICE [facility] Jun 28, 2021 02:30 PM VA-TOBACCO USE ESCROW PROCESSOR NO [facility] Jun 28, 2021 02:30 PM VA-TOBACCO USE MED NO [facility] Jun 28, 2021 02:30 PM VA-TOBACCO USE WI 30 MIN OF WAKEUP [facility] Jun 28, 2021 02:30 PM VA-TOBACCO USER EVERY DAY [facility] Encounter Notes: All associated encounter notes This section contains the clinical notes associated to the Encounter. Date/Time Encounter Note(s) Provider Source Jun 11, 2024 08:27 AM PRIMARY CARE PHYSICIAN NOTE: LOCAL TITLE: PRIMARY CARE (TP) STANDARD TITLE: PRIMARY CARE PHYSICIAN NOTE DATE OF NOTE: JUN 11, 2024@08:27 ENTRY DATE: JUN 11, 2024@08:27:31 AUTHOR: KARLO OLVERA COSIGNER: URGENCY: STATUS: COMPLETED Chief complaint: Annual HPI: No acute complaints today. Medical history significant for the following problems: Mixed hyperlipidemia, stable on statin Secondary polycythemia, stable Current everyday smoker, unchanged, 1 pack a day. ED, stable Nonalcoholic steatohepatitis, stable Obesity, unchanged Impaired fasting glucose, stable Hypogonadism by history ROS: No fevers, chills, night sweats, headache, chest pain, shortness of breath, focal loss of sensation function, headache, nausea, vomiting, diarrhea, abdominal pain. Vitals within 6 hours: 68 in [172.7 cm] (01/03/2024 08:30) T: 96.9 P: 60 R: 18 BP: 112/76 SaO2: 97%, room air PHYSICAL EXAM: Gen: A+O x 3, not acutely ill-appearing. HEENT: NCAT NECK: Supple. HEART: Regular without MRG LUNGS: CTA B ABD: Nondistended Extremeties: Negative CCE Skin: General appearance normal. Warm, dry. No obvious rashes Current available diagnostic data reviewed Impressions: 1. Mixed hyperlipidemia, stable on statin 2. Secondary polycythemia, stable 3. Current everyday smoker, unchanged, 1 pack a day. 4. ED, stable 5. Nonalcoholic steatohepatitis, stable, recent transaminases normal. 6. Obesity, unchanged 7. Impaired fasting glucose, stable 8. Hypogonadism by history Plan: 1. Patient declined tobacco cessation products: 2. Otherwise, continue current plan. Reminders: Medication Reconciliation Review: Outpatient Medication Reconciliation Medication Information Management Essential Medication List for Review Essential Medication List for Review with (EMLR/Local Objects) was used to complete this medication review. MRT5 - Allergies/ADRs FACILITY ALLERGY/ADR -------- [facility] No Known Allergies [facility], [facility] NO KNOWN ALLERGIES MRR1 - Med Reconciliation INCLUDED IN THIS LIST: Alphabetical list of active outpatient prescriptions dispensed from this [place] (local) and dispensed from another [place] or [facility] facility (remote) as well as inpatient orders (local pending and active), local clinic medications, locally documented non-VA medications, and local prescriptions that have or been discontinued in the past 90 days. Non-VA Meds Last Documented On: Jan 08, 2024 NOTE The display of VA prescriptions dispensed from another [place] or [facility] facility (remote) is limited to active outpatient prescription entries matched to National Drug File at the originating site and may not include some items such as investigational drugs, compounds, etc. NOT INCLUDED IN THIS LIST: Medications self-entered by the patient into personal health records (i.e. i-nexus) are NOT included in this list. Non-VA medications documented outside this [place], remote inpatient orders (regardless of status) and remote clinic medications are NOT included in this list. The patient and provider must always discuss medications the patient is taking, regardless of where the medication was dispensed or obtained. OUTPT ATORVASTATIN CALCIUM 40MG TAB (Status = Active) TAKE ONE-HALF TABLET BY MOUTH DAILY AT BEDTIME FOR CHOLESTEROL Rx# [id number] Last Released: 03/19/24 Qty/Days Supply: Rx Expiration Date: 07/04/24 Refills Remainin Non-VA AZITHROMYCIN 250MG TAB PKT 6 TAKE CONTENTS OF PACK BY MOUTH DIRECTED Jan 08, 2024 Patient is taking daily Indication: FOR INFECTION OUTPT BETAMETHASONE DIPR 0.05/CLOTRIM 1% CREAM (Status = Active) APPLY SMALL AMOUNT TO AFFECTED AREA(S) EVERY DAY FOR SKIN CONDITION Rx# [id number] Last Released: 09/14/23 Qty/Days Supply: 45 Rx Expiration Date: 07/31/24 Refills Remainin Indication: FOR SKIN CONDITION Non-VA HC 1%/NEOMYCIN 3.5MG/POLYMYXIN OTIC SUSP INSTILL 3 DROPS IN EACH EAR EVERY 8 HOURS Jan 08, 2024 Patient is taking daily Indication: FOR EAR INFECTION OUTPT HC 1%/NEOMYCIN 3.5MG/POLYMYXIN OTIC SUSP (Status = Active) INSTILL 3 DROPS IN EACH EAR EVERY 8 HOURS FOR EAR INFECTION [facility] RX FOR RELEASE ONLY Rx# [id number] Last Released: QtyDays Supply: 02/21 Rx Expiration Date: 01/08/25 Refills Remainin Indication: FOR EAR INFECTION OUTPT SILDENAFIL CITRATE 100MG TAB (Status = Active) TAKE ONE TABLET BY MOUTH ONE HOUR BEFORE SEXUAL RELATIONS - FOR ERECTILE DYSFUNCTION. DO NOT TAKE MORE THAN 1 DOSE PER DAY (* DAY SUPPLY*) Rx# [id number] Last Released: 10/11/23 Qty/Days Supply: Rx Expiration Date: 08/01/24 Refills Remainin SUPPLIES END OF MEDICATION LIST [...] list at the end of the visit. Alcohol Use Screen (AUDIT-C): Alcohol Screen: SCREEN FOR ALCOHOL (AUDIT-C) An alcohol screening test (AUDIT-C) was negative (score=1). 1. How often did you have a drink containing alcohol in the past year? Consider a drink to be a 12 ounce can or bottle of regular beer, 8 ounces of malt liquor, a 5 ounce glass of table wine, or a 1.5 ounce shot of liquor (like scotch, gin, or vodka). Monthly or less 2. How many drinks containing alcohol did you have on a typical day when you were drinking in the past year? One or two drinks 3. How often did you have six or more drinks on one occasion in the past year? Never Depression Screening: Perform PHQ-2 A PHQ-2 screen was performed. The score was 0 which is a negative screen for depression. Over the past two weeks, how often have you been bothered by the following problems? 1. Little interest or pleasure in doing things Not at all 2. Feeling down, depressed, or hopeless Not at all /michelle/ KARLO OLVERA DO PRIMARY CARE PHYSICIAN Signed: 06/11/2024 08:45 KARLO OLVERA [facility] Jun 11, 2024 08:00 AM PRIMARY CARE NURSING NOTE: LOCAL TITLE: NURSING INTAKE NOTE STANDARD TITLE: PRIMARY CARE NURSING NOTE DATE OF NOTE: JUN 11, 2024@08:00 ENTRY DATE: JUN 11, 2024@09:58:19 AUTHOR: SARAH EXP COSIGNER: URGENCY: STATUS: COMPLETED NURSING INTAKE NOTE Has ADDENDA SUBJECTIVE: Source of Information: Patient Patient Identification: The patient has been identified by Full Name, Full SSN, Date of Preferred language for discussing healthcare needs: [place] Allergies: Patient has answered NKA Patient's reason for visit: Annual visit with lab review. [place], [place], Purpose (MAP) What is most important to you? What do you want your health for? waking up. The patient indicated that they and their [...] member completing this screening will ask the [place] Line: We all feel stress. It may become overwhelming at times. Would you like to speak with someone about your stress? Patient denied current stress. No further action required regarding stress. OBJECTIVE: Vital Signs: Temperature: 96.9 F [36.1 C] (06/11/2024 09:53) Pulse: 60 (06/11/2024 09:53) Respiration: 18 (06/11/2024 09:53) Blood Pressure: 112/76 (06/11/2024 09:53) Weight: 204.1 lb [92.58 kg] (06/11/2024 09:53) Height: 67 in [170.2 cm] (06/11/2024 09:53) Pulse Ox: 97% (L/MIN)(%) (06/11/2024 09:53) Pain: 0 (06/11/2024 09:53) FUNCTIONAL SCREEN Changes in the following within the last 30 days: ADLS Activities of daily living (eating, oral care, toileting, bathing, grooming, dressing)? NO Mobility (walking, transfers)? NO Balance? NO Stroke/Traumatic brain injury within 30 days? NO Amputation Planned/Performed within last 30 days? NO Results: Negative ABUSE AND WELL BEING SCREENING: Evidence of physical sexual abuse, neglect or exploitation? NO PAZ FALL SCALE (indicate highest applicable score from each category) Patient Screen Score History of Falling No = 0 0 Yes = 25 Secondary Diagnosis No = 0 More than one diagnosis Yes = 15 15 Ambulatory Aid - None/on bedrest/ uses W/C or Nurse assists = 0 0 Crutches/cane(s)/walker = 15 Furniture = 30 IV/Heparin Lock or Saline PIID No = 0 0 Yes = 20 Gait/Transferring - Normal/on bedrest/ Immobile = 0 0 Weak (uses touch for balance) = 10 Impaired (unsteady/difficulty = 20 rising to stand Mental Status-Oriented to own ability = 0 0 Forgets limitations = 15 Total: 15 CASSANDRA SCALE Sensory Perception- Ability to respond meaningful to pressure discomfort. 4. No Impairment Moisture- Degree to which skin is exposed to moisture. 4. Rarely Moist Activity- Degree of physical activity. 3. Walks Occasionally Mobility- Ability to change and control body position. 4. No Impairment Nutrition- Usual food intake pattern. 4. Excellent Friction and Shear. 3. No Apparent Problems Score: 22 COMMUNICATION Patient experiences new onset/change in speech, voice or language within last 30 days. No Difficulty swallowing (within last 30 days)? No Sudden Hearing Loss (within last 72 hours)? No NUTRITION BMI 32 Weight last read Jun 11, 2024@09:53:26 Height last read Jun 11, 2024@09:53:26 Weight change > 10 pounds within last month? No Malnourished appearance? No EXERCISE Currently exercises at least 30 minutes 3 times weekly. POTENTIAL BARRIERS TO LEARNING None apparent EDUCATION METHOD Learns best by: Hearing, Seeing, Doing PLAN: Will be seen by provider. Clinical Reminders Sexual Orientation: The patient thinks of their sexual orientation as: Straight or Heterosexual Tobacco Use Screening: The patient smokes cigarettes every day. The patient has never used other types of tobacco. Suicide Screen: C-SSRS Screening [place] Suicide Severity Rating Scale (C-SSRS) screener 1. Over the past month, have you wished you were or wished you could go to sleep and not wake up? No 2. Over the past month, have you had any actual thoughts of killing yourself? No 3. Over the past month, have you been thinking about how you might do this? Response not required due to responses to other questions. 4. Over the past month, have you had these thoughts and had some intention of acting on them? Response not required due to responses to other questions. 5. Over the past month, have you started to work out or worked out the details of how to kill yourself? Response not required due to responses to other questions. 6. If yes, at any time in the past month did you intend to carry out this plan? Response not required due to responses to other questions. 7. In your lifetime, have you ever done anything, started to do anything, or prepared to do anything to end your life (for example, collected pills, obtained a gun, gave away valuables, went to the roof but didn't jump)? No 8. If YES, was this within the past 3 months? Response not required due to responses to other questions. Latex Allergy Screening: Patient is not allergic to latex. Preventive Health Counseling: Patient had Preventive Health Counseling at this encounter. Level of Understanding: Allan /michelle/ ULYSSES MARCH LPN Signed: 06/11/2024 10:02 06/11/2024 ADDENDUM STATUS: COMPLETED EXIT INTERVIEW S. Patient for exit interview to review plan of care and receive instruction. O. Changes and or initiatives to plan of care are as follows. I. Return to clinic as directed with labs scheduled 1-2 weeks prior to appointment with provider. Make appointment for RTC and/or check out prior to exiting unit. Education-Medication list given to patient. Copy of labs given to patient. Prescriptions to be mailed. Patient voices understanding of plan of care. PACT Team telephone extensions provided to patient for clear communication and any questions. Any consults placed- You will be notified via telephone of dates and times. /michelle/ ULYSSES MARCH LPN Signed: 06/11/2024 10:03 ULYSSES ALCAZAR [facility]
--- OUTSIDE RECORDS SUMMARY | 2024-10-12 17:45 | XMS_ITS | Encounter Summary ---
Author Name [facility] [facility] [place] Address [address] [place] [id number] Care Team Providers Care General Engineering Teacher Name Role Phone KARLO OLVERA Primary Care [...] to Policy Bailey CHUY KRAMER - [facility] [place] [facility] CHUY CASTILLO Dec 19, 2011 CHUY KRAMER [id number] KARLO FLOR PATIENT MEDICARE (WNR) MEDICARE (M) PART A Jan 13, 2018 PART A [id number] [phone] KARLO FLOR PATIENT MEDICARE (WNR) MEDICARE (M) PART B Jan 13, 2018 PART B [id number] KARLO FLOR PATIENT MEDICARE (WNR) MEDICARE (M) PART A Jan 13, 2018 PART A [id number] KARLO FLOR PATIENT Selected Encounter This section includes the information on record at [place] for the Encounter. Date/Time Encounter Type Encounter Description Reason Provider Source Jan 03, 2024 08:30 AM OFFICE O/P EST LOW 20 MIN PRIMARY CARE/MEDICINE ICD-10-CM H60.391 Other infective otitis externa, right ear KARLO OLVERA Jennifer Encounter Template Text not used by [place] Assessments - Encounter Diagnoses This section includes the primary and secondary diagnoses documented for the Encounter. Date/Time Primary/Secondary Diagnosis Diagnosis Name Provider Source Jan 03, 2024 09:19 AM PRIMARY Other infective otitis externa, right ear KARLO OLVERA [facility] Plan of Treatment: Future Appointments (+ 6 months) and Future Tests (+/- 45 days) The Plan of Treatment section includes future care activities for the patient from [facility] [place] [facility] This section includes future appointments and future orders which are active, pending or scheduled. Future Appointments This section includes appointments that were scheduled to occur 6 months from the date of the Encounter, up to a maximum of 20 appointments. The data comes from all [place] treatment facilities. Appointment Date/Time Appointment Type Appointme nt Facility Name Jun 04, 2024 08:00 AM AMBULATORY - NONE [facility] Jun 11, 2024 08:00 AM AMBULATORY NONE [facility] Vital Signs: All taken on the encounter date This section contains inpatient and outpatient Vital Signs collected on the date of the Encounter. Date/Time Temperature Pulse Blood Pressure Respiratory Rate SP02 Pain Height Weight Body Mass Index Source Jan 03, 2024 08:30 AM 97.1 65 116/77 18 96 5 68 205.7 31 [facility] Social History: Smoking Status (Most current) and Tobacco Use (All prior to encounter date) This section includes the most current, and the historical, smoking and tobacco- related health factors from the [place] facility where the Encounter took place. Current Smoking Status This section includes the most current smoking, or tobacco-related health factor, from the [place] facility where the Encounter took place. Date/Time Current Smoking Status Comment [facility]y Jul 04, 2023 08:00 AM VA-TOBACCO USER EVERY DAY [facility] Tobacco Use History This section includes a history of the smoking, or tobacco-related health factors, that were collected on or before the date of the Encounter. The data comes from the [place] facility where the Encounter took place. Date/Time Smoking Status/Tobacco Use Comment F acility Jul 04, 2023 08:00 AM [place]-TOBACCO USE ADVICE [facility] Jul 04, 2023 08:00 AM VA-TOBACCO USE BOOKIE NO [facility] Jul 04, 2023 08:00 AM VA-TOBACCO USE MED NO [facility] Jul 04, 2023 08:00 AM VA-TOBACCO USE [place] 30 MIN OF WAKEUP [facility] Jul 04, 2023 08:00 AM VA-TOBACCO USER EVERY DAY [facility] Jul 05, 2022 08:30 AM VA-TOBACCO USE 30 YEARS OR MORE [facility] Jul 05, 2022 08:30 AM VA-TOBACCO USE ADVICE [facility] Jul 05, 2022 08:30 AM VA-TOBACCO USE BOOKIE NO [facility] Jul 05, 2022 08:30 AM VA-TOBACCO USE MED NO [facility] Jul 05, 2022 08:30 AM VA-TOBACCO USE [place] 30 MIN OF WAKEUP [facility] Jul 05, 2022 08:30 AM VA-TOBACCO USER EVERY DAY [facility] Jun 28, 2021 02:30 PM VA-TOBACCO USE 30 YEARS OR MORE [facility] Jun 28, 2021 02:30 PM VA-TOBACCO USE ADVICE [facility] Jun 28, 2021 02:30 PM VA-TOBACCO USE BOOKIE NO [facility] Jun 28, 2021 02:30 PM VA-TOBACCO USE MED NO [facility] Jun 28, 2021 02:30 PM VA-TOBACCO USE [place] 30 MIN OF WAKEUP [facility] Jun 28, 2021 02:30 PM VA-TOBACCO USER EVERY DAY [facility] Encounter Notes: All associated encounter notes This section contains the clinical notes associated to the Encounter. Date/Time Encounter Note(s) Provider Source Jan 08, 2024 10:32 AM PHARMACY LETTERS: LOCAL TITLE: OUTSIDE PHARMACY ([facility]) STANDARD TITLE: PHARMACY LETTERS DATE OF NOTE: JAN 08, 2024@10:32 ENTRY DATE: JAN 08, 2024@10:32:14 AUTHOR: KARLO OLVERA COSIGNER: URGENCY: STATUS: COMPLETED \\\ ///\\\ [facility] \\\ /// \\\ [facility] \\\/// \\\ [address] \/// \\\\\\ [place] [address] Facility TANYA# AV [id number] JAN 08, 2024 KARLO FLOR [address] [place], [place] [address] AZITHROMYCIN 250MG TAB PKT 6 Sig: TAKE CONTENTS OF PACK BY MOUTH DIRECTED Quantity:___1____ Refills:___0 HC 1%/NEOMYCIN 3.5MG/POLYMYXIN OTIC SUSP Sig: INSTILL 3 DROPS IN EACH EAR EVERY 8 HOURS Quantity:__10 ml Refills: 1____ Prescriber's Signature Prescriber's Printed Name: KARLO OLVERA Physician TANYA#: [id number] NOTE: C-II MEDICATIONS REQUIRE A SEPARATE PRESCRIPTION Allergies on File: Patient has answered NKA KARLO FLOR : Jan KARLO OLVERA [facility] Jan 03, 2024 08:39 AM PRIMARY CARE PHYSICIAN NOTE: LOCAL TITLE: PRIMARY CARE (TP) STANDARD TITLE: PRIMARY CARE PHYSICIAN NOTE DATE OF NOTE: JAN 03, 2024@08:39 ENTRY DATE: JAN 03, 2024@08:39:22 AUTHOR: KARLO OLVERA EXP COSIGNER: URGENCY: STATUS: COMPLETED Chief complaint: ear problem HPI: infection dxd about a week ago, RT ear sx x 14 d finished course of amox swimming daily Medical history significant for the following problems: ROS: No fevers, chills, night sweats, headache, chest pain, shortness of breath, focal loss of sensation function, headache, nausea, vomiting, diarrhea, abdominal pain. Date Vital Measurement Qualifiers 01/03/2024 08:30 Temp F (C) 97.1 (36.2) Oral Pulse 65 Respir 18 Spontaneous BP 116/77 Ht in (cm) 68 (172.72) Actual Wt lbs (kg)[BMI] 205.7 (93.30)[31*]Actual, Standing Weight Pain 5 POx (L/Min)(%) 96 68 in [172.7 cm] (01/03/2024 08:30) PHYSICAL EXAM: Gen: A+O x 3, not acutely ill-appearing. HEENT: NCAT. EAC with cerumen. AD, EAC stenotic with MP d/c NECK: Supple. HEART: Regular without MRG LUNGS: CTA B ABD: Nondistended Extremeties: Negative CCE Skin: General appearance normal. Warm, dry. No obvious rashes Current available diagnostic data reviewed Impressions: 1. OE AD 2. cerumenosis Plan: 1. z ana paula, cortisporin AD. 2. debrox otc 3. no swimmming 4. rec heck prn worse or not resolved in 14d Reminders: Medication Reconciliation Review: Outpatient Medication Reconciliation Medication Information Management Essential Medication List for Review Essential Medication List for Review with (EMLR/Local Objects) was used to complete this medication review. MRT5 - Allergies/ADRs FACILITY ALLERGY/ADR -------- Rebeca [facility] No Known Allergies [facility], VIS [facility] NO KNOWN ALLERGIES MRR1 - Med Reconciliation INCLUDED IN THIS LIST: Alphabetical list of active outpatient prescriptions dispensed from this [facility] (local) and dispensed from another [place] or [facility] facility (remote) as well as inpatient orders (local pending and active), local clinic medications, locally documented non-VA medications, and local prescriptions that have or been discontinued in the past 90 days. Non-VA Meds Last Documented On: Data not found NOTE The display of VA prescriptions dispensed from another [place] or [facility] facility (remote) is limited to active outpatient prescription entries matched to National Drug File at the originating site and may not include some items such as investigational drugs, compounds, etc. NOT INCLUDED IN THIS LIST: Medications self-entered by the patient into personal health records (i.e. [employer]) are NOT included in this list. Non-VA medications documented outside this [place], remote inpatient orders (regardless of status) and remote clinic medications are NOT included in this list. The patient and provider must always discuss medications the patient is taking, regardless of where the medication was dispensed or obtained. OUTPT ATORVASTATIN CALCIUM 40MG TAB (Status = Active) TAKE ONE-HALF TABLET BY MOUTH DAILY AT BEDTIME FOR CHOLESTEROL Rx# [id number] Last Released: 12/25/23 Qty/Days Supply: 45 Rx Expiration Date: 07/04/24 Refills Remainin OUTPT AZITHROMYCIN 250MG TAB PKT 6 (Status = Pending) TAKE CONTENTS OF PACK BY MOUTH DIRECTED Login Date: 01/03/24 Qty/Days Supply: 05/19 Refills Ordered: 0 OUTPT BETAMETHASONE DIPR 0.05/CLOTRIM 1% CREAM (Status = Active) APPLY SMALL AMOUNT TO AFFECTED AREA(S) EVERY DAY FOR SKIN CONDITION Rx# [id number] Last Released: 09/14/23 Qty/Days Supply: 4560 Rx Expiration Date: 07/31/24 Refills Remainin Indication: FOR SKIN CONDITION OUTPT HC 1%/NEOMYCIN 3.5MG/POLYMYXIN OTIC SUSP (Status = Pending) INSTILL THREE DROPS IN EACH EAR EVERY 8 HOURS Login Date: 01/03/24 Qty/Days Supply: 02/21 Refills Ordered: 1 OUTPT SILDENAFIL CITRATE 100MG TAB (Status = Active) TAKE ONE TABLET BY MOUTH ONE HOUR BEFORE SEXUAL RELATIONS - FOR ERECTILE DYSFUNCTION. DO NOT TAKE MORE THAN 1 DOSE PER DAY (*90 DAY SUPPLY*) Rx# [id number] Last Released: 10/11/23 Qty/Days Supply: Rx Expiration [...] list at the end of the visit. /michelle/ KARLO OLVERA DO PRIMARY CARE PHYSICIAN Signed: 01/03/2024 09:19 KARLO OLVERA [facility] Jan 03, 2024 08:26 AM PRIMARY CARE NURSING NOTE: LOCAL TITLE: PRIMARY CARE NURSING SCREENING NOTE STANDARD TITLE: PRIMARY CARE NURSING NOTE DATE OF NOTE: JAN 03, 2024@08:26 ENTRY DATE: JAN 03, 2024@08:27:01 AUTHOR: ELLE HIDALGO EXP COSIGNER: URGENCY: STATUS: COMPLETED PRIMARY CARE NURSING SCREENING NOTE Has ADDENDA SUBJECTIVE: Source of Information: Patient Patient Identification: The patient has been identified by Full Name, Full SSN, Date of Preferred language for discussing healthcare needs: Telugu Patient's reason for visit: Focus visit for right ear pain 5/10 for two weeks. [place] reports no drainage. Patient allergies: Patient has answered NKA ABUSE [...] days. PAIN SCREEN: Verbal Patient self report Currently having pain right ear location. Describes the intensity of the pain as 5 Duration of pain is described as Acute, recent onset of pain less than 6 months Current treatment plan includes: States IS able to function effectively on the current treatment plan. STRESS: The staff member completing this screening will ask the : We all feel stress. It may become overwhelming at times. Would you like to speak with someone about your stress? Patient denied current stress. No further action required regarding stress. OBJECTIVE: Vital Signs: Temperature: 97.6 F [36.4 C] (07/04/2023 08:01) Pulse: 69 (07/04/2023 08:01) Respiration: 18 (07/04/2023 08:01) Blood Pressure: 131/85 (07/04/2023 08:01) Weight: 206.7 lb [93.76 kg] (07/04/2023 08:01) Height: 67 in [170.2 cm] (07/04/2023 08:01) Pulse Ox: 96% (L/MIN)(%) (07/04/2023 08:01) Pain: 0 (07/04/2023 08:01) PLAN: Will be seen by provider. PAZ FALL SCALE (indicate highest applicable score from each category) Patient Screen Score History of Falling No = 0 0 Yes = 25 Secondary Diagnosis No = 0 0 More than one diagnosis Yes = 15 Ambulatory Aid - None/on bedrest/ uses [...] 0 0 Forgets limitations = 15 Total: 0 Clinical Reminders Herpes Zoster (Shingles) Vaccine: The patient declines to receive the recommended dose of zoster (shingles) vaccine. Immunization: ZOSTER RECOMBINANT Refusal Reason: PATIENT DECISION Patient refuses all immunization(s) in the ZOSTER group Comment: DECLINED Date Documented: 01/03/24 08:29 Homelessness/Food Insecurity Screen: In the past 2 months, have you been living in stable housing that you own, rent, or stay in as part of a household? Yes - Living in stable housing. Are you worried or concerned that in the next 2 months you may NOT have stable housing that you own, rent, or stay in as part of a household? No - Not worried about housing near future The [place] reports the following: Within the past 12 months, you worried whether your food would run out before you got money to buy more. Never true Within the past 12 months, the food you bought just didn't last and you didn't have money to get more. Never true Pneumococcal PPSV23 (Pneumovax): The patient declines to receive the recommended dose of PPSV23 vaccine. Immunization: PNEUMOCOCCAL POLYSACCHARIDE PPV23 Refusal Reason: PATIENT DECISION Patient refuses all immunization(s) in the PneumoPPV group Comment: DECLINED Date Documented: 01/03/24 08:29 Advance Directive: ADVANCE DIRECTIVE NOTIFICATION AND SCREENING ADVANCE DIRECTIVE NOTIFICATION: The patient or warehouse representative was not provided written notification about advance directives because: ADVANCE DIRECTIVE SCREENING: The patient or warehouse representative says the patient has an advance directive. It is not on file in the patient's electronic health record. Recommended that the patient or warehouse representative provide [facility] with a copy. Inquired if they want more information or assistance in completing a new advance directive form, and directed them to that assistance, if desired. /julee HIDALGO LPN Signed: 01/03/2024 08:43 01/04/2024 ADDENDUM STATUS: COMPLETED EXIT INTERVIEW S. Patient [...] notified via telephone of dates and times. /julee HIDALGO LPN Signed: 01/04/2024 09:24 ELLE HIDALGO [facility]
--- NOTE | 2024-10-12 17:54 | ED_ITS ---
HPI - Extremity Injury (Upper) General Chief Complaint: Extremity Injury, Upper Stated Complaint: Swollen left elbow, tingling/numbness in fingers Time Seen by Provider: 10/12/24 17:21 History of Present Illness HPI narrative: 69-year-old male with reported history of hyperlipidemia presents with at bedside for swelling and pain to his left upper extremity for 2 weeks. Patient states 2 weeks ago he developed pain, swelling and redness over the olecranon. He went to urgent care about a week ago and was prescribed prednisone for ?elbow effusion?. He states he took prednisone for 5 days and had some improvement over the 1st few days, however symptoms continued to worsen. He states over the past couple of days he now has redness and swelling has extended up into his humerus and down the distal aspect of his forearm, now having edema to the dorsum of the hand with reduced fingers. He is reporting some tingling to the dorsum of the hand. He states his pain is located over the olecranon. He denies injury or trauma, fever, chills, nausea or vomiting, history of bursitis septic arthritis, history of VTE. No procedures or surgeries performed to his left upper extremity. Denies history of diabetes recent immunosuppressants beyond his recent use of steroids. Denies hx of MRSA. He is traveling here from [place] for his granddaughter's graduation. Related Data Home Medications ?Medication ?Instructions ?Recorded ?Confirmed ?Last Taken ?Type aspirin 81 mg chewable tablet 81 mg PO DAILY 10/12/24 10/12/24 Unknown History (Shirley Chewable Low Dose Aspirin) atorvastatin 20 mg tablet (Lipitor) 20 mg PO HS 10/12/24 10/12/24 Unknown History cetirizine 10 mg capsule (All Day 10 mg PO DAILY 10/12/24 10/12/24 Unknown History Allergy (cetirizine)) Allergies Allergy/AdvReac Type Severity Reaction Status Date / Time No Known Allergies Allergy Verified 10/12/24 16:39 Review of Systems 2 Review of Systems: All systems reviewed & are unremarkable except as noted in HPI and below Exam 2 Narrative: GENERAL: Well-appearing, well-nourished, and in no acute distress. HEAD: Normocephalic, atraumatic. EYES: EOMI. ENT: Nares clear, no rhinorrhea or epistaxis. Mucous membranes moist. NECK: Supple. CHEST: Clear to auscultation. No respiratory distress. HEART: Regular rate and rhythm. No murmur heard. Normal peripheral pulses. ABDOMEN: Soft, nontender, nondistended, normal active bowel sounds. EXTREMITIES: LUE: Edema, warmth and erythema over the olecranon with tenderness. Erythema and extends proximally over the volar aspect of the mid humerus and distally to the mid forearm. Edema continues to extend to the dorsum of the hand. Patient does have flexion and extension of the elbow however it is somewhat limited. Full range of motion of wrist and fingers without pain or difficulty. Radial pulse 2 +. Sensation intact. Radial, median and ulnar nerves are intact. SKIN: Warm, dry, no rash. NEURO: No focal deficits. Alert and oriented x3 Course Vital Signs Vital signs: Vital Signs Temperature 98.6 F 10/12/24 16:59 Pulse Rate 82 10/12/24 16:59 Respiratory Rate 16 10/12/24 16:59 Blood Pressure 142/64 H 10/12/24 16:59 Pulse Oximetry 98 10/12/24 16:59 Temperature 98.6 F 10/12/24 16:59 Pulse Rate 72 10/12/24 19:30 Respiratory Rate 18 10/12/24 19:30 Blood Pressure 131/76 10/12/24 19:30 Pulse Oximetry 100 10/12/24 19:30 MDM - Extremity Injury (Upper) MDM Narrative Medical decision making narrative: 69-year-old male with history of hyperlipidemia presents to the ED for pain, erythema and edema to the left arm over the past 2 weeks. Pain, erythema and edema started over the olecranon and has now spread. See HPI for further history. Vitals are stable. Patient is afebrile and nontoxic appearing. Exam significant for the above. CBC with leukocytosis of 11.3. ESR elevated at 24, CRP elevated 6.8. Lactic mildly elevated at 2.3, fluids provided. Chemistries with hyperglycemia, bicarb and anion gap. Left upper extremity venous duplex shows no DVT. CT LUE shows: IMPRESSION: Abscess seen posterior to the ulnar olecranon measuring 2.6 x 3.6 cm. Further evaluation advised. No evidence of osteomyelitis. Highly suggestive fracture of the radial head. Discussed findings with orthopedic surgeon, Dr. Garcia, who agrees to start vancomycin. Advises Kole wrap, repeat CBC, ESR and CRP in the morning. States he will evaluate the patient tomorrow and if clinically improving will continue medication therapy only, if not improving will consider washout on Monday. Advises against OCL splint at this time given patient has no significant tenderness over the radial head and no history of injury or trauma. Discussed with hospitalist, Dr. Leone, who agrees with the above plan. Recommends adding on hemoglobin A1c. Patient updated in are agreeable with the plan. Patient was started on vancomycin in the ED given morphine for pain control. Lab Data 10/12/24 18:16 10/12/24 18:16 Labs: Lab Results 10/12/24 Range/Units 18:16 WBC 11.3 H (4.5-10.0) K/mm3 RBC 5.13 (4.6-6.20) M/mm3 Hgb 14.9 (14.0-18.0) g/dL Hct 44.4 (42.0-52.0) % MCV 86.5 (80-100) fl MCH 29.0 (26-34) pg MCHC 33.6 (32-36) g/dl RDW 12.9 (11.5-14.5) % Plt Count 227 (150-375) k/mm3 MPV 10.4 (7.4-10.4) fl Immature Gran % (Auto) 1.5 H (0-0.5) % Neut % (Auto) 71.3 (45.5-73.1) % Lymph % (Auto) 17.8 L (18.3-44.2) % Archer % (Auto) 7.1 (2.6-8.5) % Eos % (Auto) 1.9 (0-4.4) % Baso % (Auto) 0.4 (0.2-1.2) % Lymph # (Auto) 2.01 (0.9-3.2) K/mm3 Archer # (Auto) 0.8 H (0.1-0.6) K/mm3 Eos # (Auto) 0.2 (0-0.3) K/mm3 Baso # (Auto) 0.0 (0.0-0.1) K/mm3 Abs Immat Gran (auto) 0.17 H (0.00-0.031) K/mm3 Absolute Neuts (auto) 8.1 H (1.3-6.7) K/mm3 Absolute Nucleated RBC 0.000 (0.0-0.012) K/mm3 Nucleated RBC % 0.0 (0.0-0.2) % ESR 24 H (0-20) mm/hr PT 13.7 (11.1-14.7) Seconds INR 1.1 APTT 27.3 (22.3-36.8) Seconds Sodium 139 (137-145) mmol/L Potassium 3.7 (3.4-5.0) mmol/L Chloride 107 (98-107) mmol/L Carbon Dioxide 22 (22-30) mmol/L Anion Gap 10 (4-12) mmol/L BUN 15 (9-20) mg/dL Creatinine 0.76 (0.7-1.3) mg/dL Estim Creat Clear Calc 87 ml/min Estimated GFR > 60 (59 - ) Glucose 214 H (65-110) mg/dL Lactic Acid 2.3 H (0.7-2.0) mmol/L Calcium 8.9 (8.4-10.2) mg/dL Total Bilirubin 0.6 (0.2-1.3) mg/dL AST 26 (17-59) U/L ALT 43 (6-50) U/L Alkaline Phosphatase 76 (38-126) U/L C-Reactive Protein 6.8 H (<1.0) mg/dL Total Protein 7.0 (6.3-8.2) g/dL Albumin 3.7 (3.5-5.1) g/dL Discharge Plan Discharge Clinical Impression: Septic bursitis of elbow, Abscess of bursa of elbow, Hyperglycemia Patient Disposition: Still a Patient Condition: Stable Patient Language: Congolese Prescriptions: No Action atorvastatin [Lipitor] 20 mg tablet 20 mg PO HS aspirin [Shirley Chewable Aspirin] 81 mg tablet,chewable 81 mg PO DAILY All Day Allergy (cetirizine) 10 mg capsule 10 mg PO DAILY Follow-up/Referrals: PHYSICIAN NOT ON STAFF,NONSTAFF [Primary Care Provider] -
[2024-10-12 18:23] LABS: Basophils Percent Auto 0.4 % (0.2-1.2); Eosinophils Absolute Auto 0.2 K/mm3 (0-0.3); Eosinophils Percent Auto 1.9 % (0-4.4); Hematocrit 44.4 % (42.0-52.0); Hemoglobin 14.9 g/dL (14.0-18.0); Immature Granulocyte Absolute 0.17 K/mm3 (0.00-0.031); Immature Granulocyte Percent A 1.5 % (0-0.5); Lymphocytes Absolute Auto 2.01 K/mm3 (0.9-3.2); Lymphocytes Percent Auto 17.8 % (18.3-44.2); Mean Corpuscular HGB Conc 33.6 g/dl (32-36); Mean Corpuscular Volume 86.5 fl (80-100); Mean Platelet Volume 10.4 fl (7.4-10.4); Monocytes Absolute Auto 0.8 K/mm3 (0.1-0.6); Monocytes Percent Auto 7.1 % (2.6-8.5); Neutrophils Absolute Auto 8.1 K/mm3 (1.3-6.7); Neutrophils Percent Auto 71.3 % (45.5-73.1); Platelet Count Result 227 k/mm3 (150-375); Red Blood Count 5.13 M/mm3 (4.6-6.20); Red Cell Distribution Width 12.9 % (11.5-14.5); White Blood Count 11.3 K/mm3 (4.5-10.0)
[2024-10-12 18:33] LABS: Lactic Acid Reflex 2.3 mmol/L (0.7-2.0)
[2024-10-12 18:35] LABS: INR 1.1; Prothrombin Time 13.7 Seconds (11.1-14.7)
[2024-10-12 18:36] LABS: Alanine Aminotransferase 43 U/L (6-50); Albumin Level 3.7 g/dL (3.5-5.1); Alkaline Phosphatase 76 U/L (38-126); Anion Gap 10 mmol/L (4-12); Aspartate Amino Transferase 26 U/L (17-59); Bilirubin,Total 0.6 mg/dL (0.2-1.3); Blood Urea Nitrogen 15 mg/dL (9-20); CRP 6.8 mg/dL (<1.0); Calcium 8.9 mg/dL (8.4-10.2); Carbon Dioxide 22 mmol/L (22-30); Chloride 107 mmol/L (98-107); Estimated CRCL calculation 87 ml/min; Estimated Glomerular Filt Rate > 60; Glucose 214 mg/dL (65-110); Partial Thromboplastin Time 27.3 Seconds (22.3-36.8); Potassium 3.7 mmol/L (3.4-5.0); Sodium 139 mmol/L (137-145)
[2024-10-12 18:57] VITALS: BP 138/67; PULSE 73; RESP 18; O2SAT 99
[2024-10-12] MEDS: SODIUM CHLORIDE 0.9% IV 1,000 ML 999 ML IV CONT (18:57)
[2024-10-12 19:06] LABS: Erythrocyte Sedimentation Rate 24 mm/hr (0-20)
[2024-10-12 19:30] VITALS: BP 131/76; PULSE 72; RESP 18; O2SAT 100
--- NOTE | 2024-10-12 19:41 | PC.NURSE ---
Assumed care of patient after receiving bedside report from ANANT Gomez @ [id number] Patient placed in room 12 at this time.
[2024-10-12 20:20] LABS: Reflex Lactic Acid Yes or No Add Lactic
[2024-10-12 20:31] LABS: Hemoglobin A1C 7.4 % (<5.7)
[2024-10-12 21:10] VITALS: BMI 31.7
[2024-10-12] MEDS: MORPHINE SULFATE (*CRX) 4 MG/ML INJ IV PUSH (21:14)
--- NOTE | 2024-10-12 21:27 | P.HP_ITS ---
H&P: HPI History of Present Illness Date/Time: 10/12/24 21:27 Chief Complaint: Elbow swelling Narrative: This is a pleasant 69-year-old male with history of hyperlipidemia, tobacco dependence, reports to [facility] on 10/12/2024 complaining of progressively worsening left elbow swelling pain tingling and redness. This happened over a few weeks while he was at home in [place] and he presented to an urgent care and was told he had an elbow effusion and given prednisone. He took prednisone for 5 days however continue to worsen. He then came to the local area for his daughter's high school graduation and his symptoms became worse. The redness and swelling have now expanded down the arm to his wrist on the posterior side. He denies any trauma. Denies any history of arthritis. Denies personal history or family history of diabetes. He denies any subjective or objective fever. Denies any other symptoms whatsoever. ER evaluation demonstrated blood pressure 131/76, heart rate 72, temperature 98.6? F, WBC 11.3, hemoglobin 14.9, platelets 227, INR 1.1, glucose 214, lactic acid 2.3 than 2.0 status post fluid resuscitation, C reactive protein 6.8. CT of left upper extremity demonstrating abscess seen posterior to the ulnar olecranon measuring 2.6 x 3.6 cm and a probable fracture of the radial head. As mentioned above he was given fluid resuscitation in the form of normal saline in 1 L, vancomycin, morphine 4 mg IV x1, cefepime 2 g IV x1. Review of Systems Review of Systems: All systems reviewed & are unremarkable except as noted in HPI and below (HPI) Meds Home Medications and Allergies Home Medications ?Medication ?Instructions ?Recorded ?Confirmed ?Type aspirin 81 mg chewable tablet 81 mg PO DAILY 10/12/24 10/12/24 History (Shirley Chewable Low Dose Aspirin) atorvastatin 20 mg tablet (Lipitor) 20 mg PO HS 10/12/24 10/12/24 History cetirizine 10 mg capsule (All Day 10 mg PO DAILY 10/12/24 10/12/24 History Allergy (cetirizine)) Allergies Allergy/AdvReac Type Severity Reaction Status Date / Time No Known Allergies Allergy Verified 10/12/24 16:39 Vital Signs Vital Signs - 24 hr 10/12/24 16:59 10/12/24 18:57 10/12/24 19:30 Temperature 98.6 F Pulse Rate 82 73 72 Respiratory Rate 16 18 18 Blood Pressure 142/64 H 138/67 131/76 Pulse Oximetry 98 99 100 Exam Const: General: comfortable and no acute distress Other: A&O x3 HENMT: Mouth: Yes moist mucous membranes Eyes: Pupils: Equal, round and reactive pupils present Neck: Neck: supple Resp: Effort & Inspection: normal respiratory effort Auscultation: clear to auscultation bilaterally Cardio: Rate: regular rate Rhythm: regular rhythm Heart sounds: no murmurs GI: GI Palp: Yes Soft to palpation and No Tenderness to palpation present (GI) Other: Protuberant abdomen Neuro: Motor exam (neuro): 5/5 motor strength present throughout Sensory Exam: normal sensation Extrem: Other: Left upper extremity full range of motion. Erythema edema warmth and tenderness to palpation over the olecranon. Mostly edema extending down the forearm with slight erythema. Neurovascular exam is intact. H&P: Results Labs Labs: Short CBC 10/12/24 Range/Units 18:16 WBC 11.3 H (4.5-10.0) K/mm3 Hgb 14.9 (14.0-18.0) g/dL Hct 44.4 (42.0-52.0) % Plt Count 227 (150-375) k/mm3 BMP 10/12/24 18:16 Sodium 139 Potassium 3.7 Chloride 107 Carbon Dioxide 22 BUN 15 Creatinine 0.76 Glucose 214 H Calcium 8.9 Liver Function 10/12/24 Range/Units 18:16 Total Bilirubin 0.6 (0.2-1.3) mg/dL AST 26 (17-59) U/L ALT 43 (6-50) U/L Alkaline Phosphatase 76 (38-126) U/L Albumin 3.7 (3.5-5.1) g/dL Assessment and Plan Assessment and plan (1) Abscess of bursa of elbow: Qualifiers: Laterality: left Qualified Code(s): M71.022 - Abscess of bursa, left elbow Code(s): M71.029 - Abscess of bursa, unspecified elbow Status: Acute (2) Hyperglycemia: Code(s): R73.9 - Hyperglycemia, unspecified Status: Acute Plan This is a pleasant 69-year-old male with history of hyperlipidemia, tobacco dependence, reports to [facility] on 10/12/2024 complaining of progressively worsening left elbow swelling pain tingling and redness. This happened over a few weeks while he was at home in [place] and he presented to an urgent care and was told he had an elbow effusion and given prednisone. He took prednisone for 5 days however continue to worsen. He then came to the local area for his daughter's high school graduation and his symptoms became worse. The redness and swelling have now expanded down the arm to his wrist on the posterior side. He denies any trauma. Denies any history of arthritis. Denies personal history or family history of diabetes. He denies any subjective or objective fever. Denies any other symptoms whatsoever. ER evaluation demonstrated blood pressure 131/76, heart rate 72, temperature 98.6? F, WBC 11.3, hemoglobin 14.9, platelets 227, INR 1.1, glucose 214, lactic acid 2.3 than 2.0 status post fluid resuscitation, C reactive protein 6.8. CT of left upper extremity demonstrating abscess seen posterior to the ulnar olecranon measuring 2.6 x 3.6 cm and a probable fracture of the radial head. As mentioned above he was given fluid resuscitation in the form of normal saline in 1 L, vancomycin, morphine 4 mg IV x1, cefepime 2 g IV x1. Orthopedic surgery consulted from ER. ----- Treat abscess with vancomycin and cefepime. Blood cultures are pending. Continue morphine p.r.n.. NPO midnight. Orthopedic surgery to see in official consultation. Left arm to be placed in sling for now, stanislaw borders of erythema with surgical marker. Advised smoking cessation. Check HbA1c in the setting of hyperglycemia. Continue to trend sepsis markers, leukocytosis especially. Lactic acid has cleared status post fluid resuscitation. Restart [employer] Lipitor and cetirizine. Hold [employer] aspirin for now. Full code. SCDs. NPO midnight. Hospitalist MIPS Advance Care Plan I have confirmed that the patient's Advanced Care Plan is present, code status is documented, or surrogate decision maker is listed in patient medical record.: Yes Medication Reconciliation I have utilized all available resources to obtain, update and review the patients current medications (includes all prescriptions, OTC, herbals, cannabis, and nutritional supplements).: Yes
[2024-10-12 21:42] VITALS: BP 152/72; PULSE 81; RESP 18; TEMP 36.2; O2SAT 98
--- NOTE | 2024-10-12 21:42 | ADMGEN ---
This patient, Pradip Florian, was admitted to Medical Room 259-01. Patient/family oriented to hospital policies and general routines including ID bracelet, bed and alarms, visiting hours, pain management, procedures, bathroom and other care routines, personal items, smoking policy, room service/diet, and visiting hours. Information on how to activate the Rapid Response Team has been discussed. Patient/Family are encouraged to report perceived risks to care and to ask questions if they do not understand what they are told or what they should do.
[2024-10-12] MEDS: ATORVASTATIN 20 MG TABLET PO (22:06)
[2024-10-12] MEDS: CEFEPIME 2 GM/NS 50 ML 2 GM/50 ML BAG IVPB (22:08)
[2024-10-12 22:30] VITALS: PULSE 81; RESP 18; O2SAT 98
[2024-10-12] MEDS: KETOROLAC 15 MG/ML VIAL (*BKC) IV PUSH (22:41)
[2024-10-12] MEDS: VANCOMYCIN 1,250 MG/NS 250 ML 1,250 MG/250 ML BAG 166.67 MG IVPB (22:42)
[2024-10-13] MEDS: VANCOMYCIN 1,000 MG/NS 250 ML 1,000 MG/250 ML BAG 125 MG IVPB (00:21)
[2024-10-13 04:51] VITALS: BP 120/60; PULSE 64; RESP 18; TEMP 36.4; O2SAT 96
[2024-10-13 05:30] LABS: Basophils Percent Auto 0.3 % (0.2-1.2); Eosinophils Absolute Auto 0.3 K/mm3 (0-0.3); Eosinophils Percent Auto 2.5 % (0-4.4); Hematocrit 40.3 % (42.0-52.0); Hemoglobin 13.1 g/dL (14.0-18.0); Immature Granulocyte Absolute 0.11 K/mm3 (0.00-0.031); Immature Granulocyte Percent A 1.1 % (0-0.5); Lymphocytes Absolute Auto 2.02 K/mm3 (0.9-3.2); Lymphocytes Percent Auto 20.1 % (18.3-44.2); Mean Corpuscular HGB Conc 32.5 g/dl (32-36); Mean Corpuscular Hemoglobin 28.6 pg (26-34); Mean Platelet Volume 10.6 fl (7.4-10.4); Monocytes Absolute Auto 0.9 K/mm3 (0.1-0.6); Monocytes Percent Auto 8.7 % (2.6-8.5); Neutrophils Absolute Auto 6.8 K/mm3 (1.3-6.7); Neutrophils Percent Auto 67.3 % (45.5-73.1); Platelet Count Result 194 k/mm3 (150-375); Red Blood Count 4.58 M/mm3 (4.6-6.20); White Blood Count 10.1 K/mm3 (4.5-10.0)
[2024-10-13 05:36] LABS: Anion Gap 6 mmol/L (4-12); Blood Urea Nitrogen 11 mg/dL (9-20); Calcium 8.1 mg/dL (8.4-10.2); Carbon Dioxide 24 mmol/L (22-30); Chloride 107 mmol/L (98-107); Estimated CRCL calculation 87 ml/min; Estimated Glomerular Filt Rate > 60; Glucose 178 mg/dL (65-110); Potassium 3.7 mmol/L (3.4-5.0); Sodium 137 mmol/L (137-145)
[2024-10-13] MEDS: CEFEPIME 2 GM/NS 50 ML 2 GM/50 ML BAG IVPB ×3 (05:46→22:18)
[2024-10-13] MEDS: MORPHINE SULFATE (*CRX) 2 MG/ML INJ IV PUSH ×4 (05:53→22:18)
[2024-10-13 06:51] LABS: Erythrocyte Sedimentation Rate 21 mm/hr (0-20)
--- NOTE | 2024-10-13 08:41 | PM.IMPN ---
Progress Note: A&P Assessment and Plan (1) Abscess of bursa of elbow: Qualifiers: Laterality: left Qualified Code(s): M71.022 - Abscess of bursa, left elbow Code(s): M71.029 - Abscess of bursa, unspecified elbow Status: Acute (2) Hyperglycemia: Code(s): R73.9 - Hyperglycemia, unspecified Status: Acute Plan This is a pleasant 69-year-old male with history of hyperlipidemia, tobacco dependence, reports to [place] [facility] on 10/12/2024 complaining of progressively worsening left elbow swelling pain tingling and redness. This happened over a few weeks while he was at home in [place] and he presented to an urgent care and was told he had an elbow effusion and given prednisone. He took prednisone for 5 days however continue to worsen. He then came to the local area for his daughter's high school graduation and his symptoms became worse. The redness and swelling have now expanded down the arm to his wrist on the posterior side. He denies any trauma. Denies any history of arthritis. Denies personal history or family history of diabetes. He denies any subjective or objective fever. Denies any other symptoms whatsoever. ER evaluation demonstrated blood pressure 131/76, heart rate 72, temperature 98.6? F, WBC 11.3, hemoglobin 14.9, platelets 227, INR 1.1, glucose 214, lactic acid 2.3 than 2.0 status post fluid resuscitation, C reactive protein 6.8. CT of left upper extremity demonstrating abscess seen posterior to the ulnar olecranon measuring 2.6 x 3.6 cm and a probable fracture of the radial head. As mentioned above he was given fluid resuscitation in the form of normal saline in 1 L, vancomycin, morphine 4 mg IV x1, cefepime 2 g IV x1. Orthopedic surgery consulted from ER. ----- Treat abscess with vancomycin and cefepime. Blood cultures are pending. Continue morphine p.r.n.. NPO midnight. Orthopedic surgery to see in official consultation. Left arm to be placed in sling for now, stanislaw borders of erythema with surgical marker. Advised smoking cessation. Check HbA1c in the setting of hyperglycemia. Continue to trend sepsis markers, leukocytosis especially. Lactic acid has cleared status post fluid resuscitation. Restart [employer] Lipitor and cetirizine. Hold [employer] aspirin for now. Full code. SCDs. NPO midnight. Subjective Date/time seen: 10/13/24 08:41 Interval history: Evaluated by Ortho. No acute surgical intervention. Will continue antibiotics. Review of Systems Review of Systems: All systems reviewed & are unremarkable except as noted in HPI and below (HPI) Exam Const: General: comfortable and no acute distress Other: A&O x3 HENMT: Mouth: Yes moist mucous membranes Eyes: Pupils: Equal, round and reactive pupils present Neck: Neck: supple Resp: Effort & Inspection: normal respiratory effort Auscultation: clear to auscultation bilaterally Cardio: Rate: regular rate Rhythm: regular rhythm Heart sounds: no murmurs GI: Other: Protuberant abdomen Neuro: Cranial nerves: Yes Equal, round and reactive pupils present Motor exam (neuro): 5/5 motor strength present throughout Sensory Exam: normal sensation Extrem: Other: Left upper extremity full range of motion. Erythema edema warmth and tenderness to palpation over the olecranon. Mostly edema extending down the forearm with slight erythema. Neurovascular exam is intact. Objective Data Vital Signs Vital Signs: Vital Signs - 24 hr 10/12/24 16:59 10/12/24 18:57 10/12/24 19:30 Temperature 98.6 F Pulse Rate 82 73 72 Respiratory Rate 16 18 18 Blood Pressure 142/64 H 138/67 131/76 Pulse Oximetry 98 99 100 Oxygen Delivery 10/12/24 21:42 10/12/24 22:30 10/13/24 04:51 Temperature 97.1 F L 97.6 F Pulse Rate 81 81 64 Respiratory Rate 18 18 18 Blood Pressure 152/72 H 120/60 Pulse Oximetry 98 98 96 Oxygen Delivery Room Air 10/13/24 08:00 Temperature Pulse Rate Respiratory Rate Blood Pressure Pulse Oximetry Oxygen Delivery Room Air Intake/Output Intake/Output: Intake & Output 10/10/24 10/11/24 10/12/24 10/13/24 23:59 23:59 23:59 23:59 Intake Total 766 550 Balance 766 550 Meds/Results Medications: Active Medications Generic Name Dose Route Start Last Admin Trade Name Freq PRN Reason Stop Dose Admin Atorvastatin Calcium 20 mg 10/12/24 21:30 10/12/24 22:06 Atorvastatin 20 Mg Tablet PO 20 mg HS PAULA Administration Cefepime HCl 2 gm in 50 mls @ 100 mls/hr 10/12/24 22:00 10/13/24 06:16 Maxipime 2 Gm/Ns 50 Ml IVPB Infused Q8H PAULA Infusion Vancomycin HCl 1,500 mg in 500 mls @ 250 mls/hr 10/13/24 11:00 Vancomycin 1,500 Mg/Ns 500 Ml IVPB Q12H PAULA Loratadine 10 mg 10/13/24 09:00 Loratadine 10 Mg Tablet PO QAM PAULA Morphine Sulfate 2 mg 10/12/24 20:21 10/13/24 05:53 Morphine Sulfate (*Crx) 2 Mg/Ml Inj IV PUSH 2 mg Q2H PRN Administration Pain Rated 7-10 Nicotine 1 patch 10/12/24 21:31 Nicotine (*Pbkc) 21 Mg Patch TRANSDERM DAILY PRN Smoking craving Ondansetron HCl 4 mg 10/12/24 20:21 Ondansetron Inj 4 Mg/2 Ml Vial IV PUSH Q4H PRN Nausea Radiology Results: ITS Impressions Elbow X-Ray 10/12/24 18:39 IMPRESSION: Highly suggestive fracture in the radial head. Soft tissue swelling seen posteriorly with lucencies which may indicate cellulitis. Clinical correlation advised. Venous Doppler Study 10/12/24 18:49 IMPRESSION: Negative left upper extremity venous US. No deep vein thrombosis. Upper Extremity CT 10/12/24 19:44 IMPRESSION: Abscess seen posterior to the ulnar olecranon measuring 2.6 x 3.6 cm. Further evaluation advised. No evidence of osteomyelitis. Highly suggestive fracture of the radial head. Labs Labs: Laboratory Results - last 24 hr 10/12/24 10/12/24 10/13/24 18:16 20:39 04:41 WBC 11.3 H 10.1 H RBC 5.13 4.58 L Hgb 14.9 13.1 L Hct 44.4 40.3 L MCV 86.5 88.0 MCH 29.0 28.6 MCHC 33.6 32.5 RDW 12.9 13.0 Plt Count 227 194 MPV 10.4 10.6 H Immature Gran % (Auto) 1.5 H 1.1 H Neut % (Auto) 71.3 67.3 Lymph % (Auto) 17.8 L 20.1 Whiteside % (Auto) 7.1 8.7 H Eos % (Auto) 1.9 2.5 Baso % (Auto) 0.4 0.3 Lymph # (Auto) 2.01 2.02 Whiteside # (Auto) 0.8 H 0.9 H Eos # (Auto) 0.2 0.3 Baso # (Auto) 0.0 0.0 Abs Immat Gran (auto) 0.17 H 0.11 H Absolute Neuts (auto) 8.1 H 6.8 H Absolute Nucleated RBC 0.000 0.000 Nucleated RBC % 0.0 0.0 ESR 24 H 21 H PT 13.7 INR 1.1 APTT 27.3 Sodium 139 137 Potassium 3.7 3.7 Chloride 107 107 Carbon Dioxide 22 24 Anion Gap 10 6 BUN 15 11 Creatinine 0.76 0.78 Estim Creat Clear Calc 87 87 Estimated GFR > 60 > 60 Glucose 214 H 178 H Hemoglobin A1c 7.4 H Lactic Acid 2.3 H 2.0 Calcium 8.9 8.1 L Magnesium 2.0 Total Bilirubin 0.6 AST 26 ALT 43 Alkaline Phosphatase 76 C-Reactive Protein 6.8 H Total Protein 7.0 Albumin 3.7 Hospitalist MIPS Advance Care Plan I have confirmed that the patient's Advanced Care Plan is present, code status is documented, or surrogate decision maker is listed in patient medical record.: Yes Medication Reconciliation I have utilized all available resources to obtain, update and review the patients current medications (includes all prescriptions, OTC, herbals, cannabis, and nutritional supplements).: Yes
[2024-10-13] MEDS: LORATADINE 10 MG TABLET PO (08:46)
[2024-10-13] MEDS: VANCOMYCIN 1,500 MG/NS 500 ML 1,500 MG/500 ML BAG 250 MG IVPB (10:54)
[2024-10-13 13:05] LABS: MRSA (PCR) NOT DETECTED (NOT DETECTE)
[2024-10-13 14:00] VITALS: BP 121/58; PULSE 61; RESP 18; TEMP 36.6; O2SAT 97
[2024-10-13 19:38] LABS: CRP 6.9 mg/dL (<1.0)
[2024-10-13 20:00] VITALS: PULSE 65; RESP 20; O2SAT 95
[2024-10-13 20:29] VITALS: BP 112/54; PULSE 68; RESP 16; TEMP 36.7; O2SAT 96
[2024-10-13 21:13] VITALS: PULSE 65; RESP 20; O2SAT 95
[2024-10-13] MEDS: ATORVASTATIN 20 MG TABLET PO (22:17)
[2024-10-13] MEDS: VANCOMYCIN 1,500 MG/NS 500 ML 1,500 MG/500 ML BAG 125 MG IVPB (23:45)
[2024-10-14] MEDS: CEFEPIME 2 GM/NS 50 ML 2 GM/50 ML BAG IVPB ×3 (05:16→21:06)
[2024-10-14] MEDS: MORPHINE SULFATE (*CRX) 2 MG/ML INJ IV PUSH ×5 (05:16→21:05)
[2024-10-14 05:25] VITALS: BP 121/59; PULSE 62; RESP 18; TEMP 36.4; O2SAT 93
--- NOTE | 2024-10-14 07:25 | PM.CNOR ---
Assessment and Plan Assessment and plan (1) Septic bursitis of elbow: Qualifiers: Laterality: left Qualified Code(s): M71.122 - Other infective bursitis, left elbow Code(s): M71.129 - Other infective bursitis, unspecified elbow Status: Acute Assessment and Plan: Patient is predominantly cellulitis of his left arm and elbow area he does have a little bit of bursitis. He says he has to have a bump that decompressed quite a bit. He does have some firmness and swelling about the arm, but nothing too severe. He has mild-moderate erythema. we will ask Radiology to aspirate the bursa if there is much fluid. And follow him along. He is on appropriate antibiotics at this time. I do not feel much of a bursa that I could decompress with surgery. (2) Cellulitis of left elbow: Code(s): L03.114 - Cellulitis of left upper limb Status: Acute History of Present Illness HPI Consult date: 10/14/24 Chief complaint: Septic bursitis Review of Systems Musculoskeletal: Musculoskeletal: Reports arthralgias, Reports joint swelling and Reports stiffness [facility] Family History Family History (Updated 10/12/24 @ 21:55 by Kim Wade RN) Mother Emphysema lung Parents Father Parents Social History Social History Smoking packs per day: 1 Smoking cigarettes per day: 20.0 Smoking status: Current every day smoker Tobacco type: cigarettes Alcohol intake: current Substance use: never Substance use type: does not use Do You Feel Safe in your Home?: Yes Lack of Transportation: No Lack of Food: Never True Current Housing: I Have Housing Concerned About Future Housing: No Difficulty Paying Gas/Electric Bills: No Difficulty Paying for Meds: No Currently Unemployed: No Education: High School Diploma/GED Difficulty w/ Childcare or Family Care: No Spiritual care concerns: No Meds Home Medications and Allergies Home Medications ?Medication ?Instructions ?Recorded ?Confirmed ?Type aspirin 81 mg chewable tablet 81 mg PO DAILY 10/12/24 10/12/24 History (Shirley Chewable Low Dose Aspirin) atorvastatin 20 mg tablet (Lipitor) 20 mg PO HS 10/12/24 10/12/24 History cetirizine 10 mg capsule (All Day 10 mg PO DAILY 10/12/24 10/12/24 History Allergy (cetirizine)) Allergies Allergy/AdvReac Type Severity Reaction Status Date / Time No Known Allergies Allergy Verified 10/12/24 16:39 Vital Signs Vital Signs - 24 hr 10/13/24 08:00 10/13/24 14:00 10/13/24 20:00 Temperature 97.9 F Pulse Rate 61 65 Respiratory Rate 18 20 Blood Pressure 121/58 L Pulse Oximetry 97 95 Oxygen Delivery Room Air Room Air Fraction of Inspired Oxygen 21 10/13/24 20:29 10/13/24 21:13 10/14/24 05:25 Temperature 98.1 F 97.5 F L Pulse Rate 68 65 62 Respiratory Rate 16 20 18 Blood Pressure 112/54 L 121/59 L Pulse Oximetry 96 95 93 Oxygen Delivery Room Air Fraction of Inspired Oxygen 21 Exam Narrative: Patient has mild erythema about the elbow. He does have some swelling in the elbow and forearm. He has a small collection of fluid posterior but I really do not feel much in the way of a bursa. Neurologically he is intact. Results Labs 10/13/24 04:41 10/13/24 04:41 Labs: Abnormal lab results 10/13/24 Range/Units 19:21 C-Reactive Protein 6.9 H (<1.0) mg/dL H & H 10/12/24 10/13/24 Range/Units 18:16 04:41 Hgb 14.9 13.1 L (14.0-18.0) g/dL Hct 44.4 40.3 L (42.0-52.0) % Coagulation 10/12/24 Range/Units 18:16 INR 1.1 All other labs normal.
[2024-10-14] MEDS: LORATADINE 10 MG TABLET PO (08:29)
[2024-10-14 10:36] LABS: Hematocrit 43.5 % (42.0-52.0); Hemoglobin 14.6 g/dL (14.0-18.0); Mean Corpuscular HGB Conc 33.6 g/dl (32-36); Mean Corpuscular Hemoglobin 29.3 pg (26-34); Mean Corpuscular Volume 87.3 fl (80-100); Mean Platelet Volume 10.3 fl (7.4-10.4); Platelet Count Result 218 k/mm3 (150-375); Red Blood Count 4.98 M/mm3 (4.6-6.20); Red Cell Distribution Width 12.7 % (11.5-14.5); White Blood Count 10.2 K/mm3 (4.5-10.0)
[2024-10-14 10:49] LABS: Alanine Aminotransferase 31 U/L (6-50); Albumin Level 3.6 g/dL (3.5-5.1); Alkaline Phosphatase 61 U/L (38-126); Anion Gap 6 mmol/L (4-12); Aspartate Amino Transferase 23 U/L (17-59); Bilirubin,Total 0.7 mg/dL (0.2-1.3); Blood Urea Nitrogen 10 mg/dL (9-20); Calcium 8.6 mg/dL (8.4-10.2); Carbon Dioxide 28 mmol/L (22-30); Chloride 102 mmol/L (98-107); Estimated CRCL calculation 81 ml/min; Estimated Glomerular Filt Rate > 60; Glucose 175 mg/dL (65-110); Potassium 3.9 mmol/L (3.4-5.0); Sodium 136 mmol/L (137-145)
[2024-10-14 10:52] LABS: Vancomycin Trough 10.9 ug/mL (10.0-20.0)
[2024-10-14] MEDS: VANCOMYCIN 1,500 MG/NS 500 ML 1,500 MG/500 ML BAG 250 MG IVPB ×2 (11:59→21:45)
--- NOTE | 2024-10-14 13:50 | P.PNIM_ITS ---
Progress Note: A&P Assessment and Plan (1) Abscess of bursa of elbow: Qualifiers: Laterality: left Qualified Code(s): M71.022 - Abscess of bursa, left elbow Code(s): M71.029 - Abscess of bursa, unspecified elbow Status: Acute (2) Hyperglycemia: Code(s): R73.9 - Hyperglycemia, unspecified Status: Acute Plan This is a pleasant 69-year-old male with history of hyperlipidemia, tobacco dependence, reports to [facility] on 10/12/2024 complaining of progressively worsening left elbow swelling pain tingling and redness. This happened over a few weeks while he was at home in [place] and he presented to an urgent care and was told he had an elbow effusion and given prednisone. He took prednisone for 5 days however continue to worsen. He then came to the local area for his daughter's high school graduation and his symptoms became worse. The redness and swelling have now expanded down the arm to his wrist on the posterior side. He denies any trauma. Denies any history of arthritis. Denies personal history or family history of diabetes. He denies any subjective or objective fever. Denies any other symptoms whatsoever. ER evaluation demonstrated blood pressure 131/76, heart rate 72, temperature 98.6? F, WBC 11.3, hemoglobin 14.9, platelets 227, INR 1.1, glucose 214, lactic acid 2.3 than 2.0 status post fluid resuscitation, C reactive protein 6.8. CT of left upper extremity demonstrating abscess seen posterior to the ulnar olecranon measuring 2.6 x 3.6 cm and a probable fracture of the radial head. As mentioned above he was given fluid resuscitation in the form of normal saline in 1 L, vancomycin, morphine 4 mg IV x1, cefepime 2 g IV x1. Orthopedic surgery consulted from ER. ----- Treat abscess with vancomycin and cefepime. Blood cultures are pending. Continue morphine p.r.n.. NPO midnight. Orthopedic surgery to see in official consultation. Left arm to be placed in sling for now, stanislaw borders of erythema with surgical marker. Advised smoking cessation. Check HbA1c in the setting of hyperglycemia. Continue to trend sepsis markers, leukocytosis especially. Lactic acid has cleared status post fluid resuscitation. Restart [employer]OLOG[employer] TECHNICAL OFFICER Lipitor and cetirizine. Hold ECOLOG[employer] TECHNICAL OFFICER aspirin for now. Full code. SCDs. NPO midnight. Subjective Date/time seen: 10/14/24 13:50 Interval history: Patient will undergo aspiration by Radiology. Continue IV antibiotic Review of Systems Review of Systems: All systems reviewed & are unremarkable except as noted in HPI and below (HPI) Exam Const: General: comfortable and no acute distress Other: A&O x3 HENMT: Mouth: Yes moist mucous membranes Eyes: Pupils: Equal, round and reactive pupils present Neck: Neck: supple Resp: Effort & Inspection: normal respiratory effort Auscultation: clear to auscultation bilaterally Cardio: Rate: regular rate Rhythm: regular rhythm Heart sounds: no murmurs GI: Other: Protuberant abdomen Neuro: Cranial nerves: Yes Equal, round and reactive pupils present Motor exam (neuro): 5/5 motor strength present throughout Sensory Exam: normal sensation Extrem: Other: Left upper extremity full range of motion. Erythema edema warmth and tenderness to palpation over the olecranon. Mostly edema extending down the forearm with slight erythema. Neurovascular exam is intact. Objective Data Vital Signs Vital Signs: Vital Signs - 24 hr 10/13/24 14:00 10/13/24 20:00 10/13/24 20:29 Temperature 97.9 F 98.1 F Pulse Rate 61 65 68 Respiratory Rate 18 20 16 Blood Pressure 121/58 L 112/54 L Pulse Oximetry 97 95 96 Oxygen Delivery Room Air Fraction of Inspired Oxygen 21 10/13/24 21:13 10/14/24 05:25 10/14/24 08:30 Temperature 97.5 F L Pulse Rate 65 62 Respiratory Rate 20 18 Blood Pressure 121/59 L Pulse Oximetry 95 93 Oxygen Delivery Room Air Room Air Fraction of Inspired Oxygen 21 Intake/Output Intake/Output: Intake & Output 10/11/24 10/12/24 10/13/24 10/14/24 23:59 23:59 23:59 23:59 Intake Total 766 1390 2019 Output Total 4 Balance 766 1390 2015 Meds/Results Medications: Active Medications Generic Name Dose Route Start Last Admin Trade Name Freq PRN Reason Stop Dose Admin Amoxicillin/Clavulanate Potassium 1 tablet 10/15/24 09:00 Amoxicillin/Clavulanate K 875-125 Mg Tab PO 10/28/24 21:01 Q12HR PAULA Atorvastatin Calcium 20 mg 10/12/24 21:30 10/13/24 22:17 Atorvastatin 20 Mg Tablet PO 20 mg HS PAULA Administration Cefepime HCl 2 gm in 50 mls @ 100 mls/hr 10/12/24 22:00 10/14/24 05:46 Maxipime 2 Gm/Ns 50 Ml IVPB 10/14/24 23:59 Infused Q8H PAULA Infusion Vancomycin HCl 1,500 mg in 500 mls @ 250 mls/hr 10/14/24 12:00 10/14/24 11:59 Vancomycin 1,500 Mg/Ns 500 Ml IVPB 10/14/24 23:59 250 mls/hr Q8H PAULA Administration Linezolid 600 mg 10/15/24 09:00 Linezolid 600 Mg Tablet PO 10/28/24 21:01 Q12HR PAULA Loratadine 10 mg 10/13/24 09:00 10/14/24 08:29 Loratadine 10 Mg Tablet PO 10 mg QAM PAULA Administration Morphine Sulfate 2 mg 10/12/24 20:21 10/14/24 08:30 Morphine Sulfate (*Crx) 2 Mg/Ml Inj IV PUSH 2 mg Q2H PRN Administration Pain Rated 7-10 Nicotine 1 patch 10/12/24 21:31 Nicotine (*Pbkc) 21 Mg Patch TRANSDERM DAILY PRN Smoking craving Ondansetron HCl 4 mg 10/12/24 20:21 Ondansetron Inj 4 Mg/2 Ml Vial IV PUSH Q4H PRN Nausea Radiology Results: ITS Impressions Elbow X-Ray 10/12/24 18:39 IMPRESSION: Highly suggestive fracture in the radial head. Soft tissue swelling seen posteriorly with lucencies which may indicate cellulitis. Clinical correlation advised. Venous Doppler Study 10/12/24 18:49 IMPRESSION: Negative left upper extremity venous US. No deep vein thrombosis. Upper Extremity CT 10/12/24 19:44 IMPRESSION: Abscess seen posterior to the ulnar olecranon measuring 2.6 x 3.6 cm. Further evaluation advised. No evidence of osteomyelitis. Highly suggestive fracture of the radial head. Labs Labs: Laboratory Results - last 24 hr 10/13/24 10/14/24 19:21 09:58 WBC 10.2 H RBC 4.98 Hgb 14.6 Hct 43.5 MCV 87.3 MCH 29.3 MCHC 33.6 RDW 12.7 Plt Count 218 MPV 10.3 Sodium 136 L Potassium 3.9 Chloride 102 Carbon Dioxide 28 Anion Gap 6 BUN 10 Creatinine 0.84 Estim Creat Clear Calc 81 Estimated GFR > 60 Glucose 175 H Calcium 8.6 Total Bilirubin 0.7 AST 23 ALT 31 Alkaline Phosphatase 61 C-Reactive Protein 6.9 H Total Protein 7.0 Albumin 3.6 Vancomycin Trough 10.9 Hospitalist MIPS Advance Care Plan I have confirmed that the patient's Advanced Care Plan is present, code status is documented, or surrogate decision maker is listed in patient medical record.: Yes Medication Reconciliation I have utilized all available resources to obtain, update and review the patients current medications (includes all prescriptions, OTC, herbals, cannabis, and nutritional supplements).: Yes
[2024-10-14 14:00] VITALS: BP 124/56; PULSE 61; RESP 16; TEMP 36.9; O2SAT 97
[2024-10-14 14:27] LABS: Crystals Synovial Fluid None Seen (None Seen)
[2024-10-14 20:00] VITALS: PULSE 61; RESP 20; O2SAT 97
[2024-10-14 20:41] VITALS: BP 129/63; PULSE 61; RESP 20; TEMP 36.8; O2SAT 95
[2024-10-14] MEDS: ATORVASTATIN 20 MG TABLET PO (21:06)
[2024-10-14 21:42] VITALS: O2SAT 97
[2024-10-15] VITALS (19 sets, daily range): BP systolic 105–132; BP diastolic 56–91; PULSE 55–63; RESP 12–23; TEMP 36.4–36.9; O2SAT 96–99
[2024-10-15] MEDS: MORPHINE SULFATE (*CRX) 2 MG/ML INJ IV PUSH (02:14)
[2024-10-15 05:25] LABS: Hematocrit 41.4 % (42.0-52.0); Hemoglobin 13.5 g/dL (14.0-18.0); Mean Corpuscular HGB Conc 32.6 g/dl (32-36); Mean Corpuscular Hemoglobin 28.8 pg (26-34); Mean Corpuscular Volume 88.5 fl (80-100); Platelet Count Result 209 k/mm3 (150-375); Red Blood Count 4.68 M/mm3 (4.6-6.20); Red Cell Distribution Width 12.7 % (11.5-14.5); White Blood Count 8.4 K/mm3 (4.5-10.0)
[2024-10-15 05:42] LABS: Alanine Aminotransferase 34 U/L (6-50); Albumin Level 3.3 g/dL (3.5-5.1); Alkaline Phosphatase 58 U/L (38-126); Anion Gap 9 mmol/L (4-12); Aspartate Amino Transferase 30 U/L (17-59); Bilirubin,Total 0.6 mg/dL (0.2-1.3); Blood Urea Nitrogen 9 mg/dL (9-20); Calcium 8.2 mg/dL (8.4-10.2); Carbon Dioxide 22 mmol/L (22-30); Chloride 105 mmol/L (98-107); Estimated CRCL calculation 92 ml/min; Estimated Glomerular Filt Rate > 60; Glucose 163 mg/dL (65-110); Potassium 3.8 mmol/L (3.4-5.0); Sodium 136 mmol/L (137-145)
--- NOTE | 2024-10-15 07:16 | PM.PNORT ---
Progress Note: A&P Assessment and Plan (1) Abscess of bursa of elbow: Qualifiers: Laterality: left Qualified Code(s): M71.022 - Abscess of bursa, left elbow Code(s): M71.029 - Abscess of bursa, unspecified elbow Status: Acute Assessment and Plan: Patient has a septic olecranon bursitis. The elbow is better after the aspiration and the swelling is down. However, due to the fact that he had some air bubbles in there, and the fact that he has not improved enough despite heavy duty antibiotics, I think it is time to debride the elbow. Will proceed. I discussed risks, benefits, limitations, and alternatives with the patient and his family in detail. Subjective Subjective Date/Time Seen: 10/15/24 07:16 Principal diagnosis: Septic Bursitis and Cellulitis Left Elbow Review of Systems Musculoskeletal: Musculoskeletal: Reports arthralgias, Reports joint swelling and Reports stiffness Exam Narrative: Patient has mild erythema about the elbow. He does have some swelling in the elbow and forearm. He has a small collection of fluid posterior but I really do not feel much in the way of a bursa. Neurologically he is intact. Objective Data Vital Signs Vital Signs: Vital Signs - 24 hr 10/14/24 08:30 10/14/24 14:00 10/14/24 20:00 Temperature 98.4 F Pulse Rate 61 61 Respiratory Rate 16 20 Blood Pressure 124/56 L Pulse Oximetry 97 97 Oxygen Delivery Room Air Room Air Fraction of Inspired Oxygen 21 10/14/24 20:41 10/14/24 21:42 10/15/24 04:54 Temperature 98.3 F 97.7 F Pulse Rate 61 57 L Respiratory Rate 20 18 Blood Pressure 129/63 109/56 L Pulse Oximetry 95 97 96 Oxygen Delivery Room Air Fraction of Inspired Oxygen 21 Intake/Output Intake/Output: Intake & Output 10/12/24 10/13/24 10/14/24 10/15/24 23:59 23:59 23:59 23:59 Intake Total 766 1390 3600 290 Output Total 4 Balance 766 1390 3596 290 Meds/Results Medications: Active Medications Generic Name Dose Route Start Last Admin Trade Name Freq PRN Reason Stop Dose Admin Acetaminophen 650 mg 10/15/24 02:44 Acetaminophen 325 Mg Tablet PO Q6H PRN Mild Pain (1-3) or Fever Hydrocodone Bitart/Acetaminophen 1 tab 10/15/24 02:44 Hydrocodone/Acetaminophen (*Crx) 5-325 Mg Tablet PO Q6H PRN Pain Rated 4-6 Amoxicillin/Clavulanate Potassium 1 tablet 10/15/24 09:00 Amoxicillin/Clavulanate K 875-125 Mg Tab PO 10/28/24 21:01 Q12HR PAULA Atorvastatin Calcium 20 mg 10/12/24 21:30 10/14/24 21:06 Atorvastatin 20 Mg Tablet PO 20 mg HS PAULA Administration Linezolid 600 mg 10/15/24 09:00 Linezolid 600 Mg Tablet PO 10/28/24 21:01 Q12HR PAULA Loratadine 10 mg 10/13/24 09:00 10/14/24 08:29 Loratadine 10 Mg Tablet PO 10 mg QAM PAULA Administration Morphine Sulfate 2 mg 10/12/24 20:21 10/15/24 02:14 Morphine Sulfate (*Crx) 2 Mg/Ml Inj IV PUSH 2 mg Q2H PRN Administration Pain Rated 7-10 Nicotine 1 patch 10/12/24 21:31 Nicotine (*Pbkc) 21 Mg Patch TRANSDERM DAILY PRN Smoking craving Ondansetron HCl 4 mg 10/12/24 20:21 Ondansetron Inj 4 Mg/2 Ml Vial IV PUSH Q4H PRN Nausea Radiology Results: ITS Impressions Elbow X-Ray 10/12/24 18:39 IMPRESSION: Highly suggestive fracture in the radial head. Soft tissue swelling seen posteriorly with lucencies which may indicate cellulitis. Clinical correlation advised. Venous Doppler Study 10/12/24 18:49 IMPRESSION: Negative left upper extremity venous US. No deep vein thrombosis. Upper Extremity CT 10/12/24 19:44 IMPRESSION: Abscess seen posterior to the ulnar olecranon measuring 2.6 x 3.6 cm. Further evaluation advised. No evidence of osteomyelitis. Highly suggestive fracture of the radial head. Joint Aspiration/Injection 10/14/24 13:54 IMPRESSION: 1. Successful Ultrasound-guided aspiration of a left olecranon bursa yielding 4.5 mL purulent appearing fluid suspicious for septic bursitis. Labs Labs: Laboratory Results - last 24 hr 10/14/24 10/14/24 10/15/24 09:58 13:25 04:21 WBC 10.2 H 8.4 RBC 4.98 4.68 Hgb 14.6 13.5 L Hct 43.5 41.4 L MCV 87.3 88.5 MCH 29.3 28.8 MCHC 33.6 32.6 RDW 12.7 12.7 Plt Count 218 209 MPV 10.3 11.0 H Sodium 136 L 136 L Potassium 3.9 3.8 Chloride 102 105 Carbon Dioxide 28 22 Anion Gap 6 9 BUN 10 9 Creatinine 0.84 0.73 Estim Creat Clear Calc 81 92 Estimated GFR > 60 > 60 Glucose 175 H 163 H Calcium 8.6 8.2 L Total Bilirubin 0.7 0.6 AST 23 30 ALT 31 34 Alkaline Phosphatase 61 58 Total Protein 7.0 6.0 L Albumin 3.6 3.3 L Synovial Crystals None seen Vancomycin Trough 10.9
--- NOTE | 2024-10-15 07:52 | WPDHPUPDATE1 ---
History and Physical Update Update Date/Time: 10/15/24 07:52 History and Physical has been reviewed, including an updated exam of the patient. There are NO changes in the patient's condition. Risks, benefits, and alternatives have been discussed and questions answered. Patient agrees to proceed with procedure. Will proceed with irrigation and debridement olecranon bursa proceed as indicated.
--- NOTE | 2024-10-15 08:08 | WPDANESEPPF ---
Anes - Initial Pre Proc Eval Procedure: Operation Date: 10/15/24 15:00 Proposed Procedures p Washout Left Elbow - Anatoliy Fatima MD Date/Time: 10/15/24 08:08 Surgeon: Suellen Leone MD Pre Op Diagnosis: Septic bursitis Patient Data Age: 69 Gender: M Height: 1.75 m Weight: 97.5 kg Last Vital Signs Temp 36.5 C 10/15/24 04:54 Pulse 57 L 10/15/24 04:54 Resp 18 10/15/24 04:54 BP 109/56 L 10/15/24 04:54 Pulse Ox 96 10/15/24 04:54 O2 Del Method Room Air 10/14/24 21:42 FiO2 21 10/14/24 21:42 Allergies Allergy/AdvReac Type Severity Reaction Status Date / Time No Known Allergies Allergy Verified 10/12/24 16:39 Home Medications ?Medication ?Instructions ?Recorded ?Confirmed ?Type aspirin 81 mg chewable tablet 81 mg PO DAILY 10/12/24 10/12/24 History (Shirley Chewable Low Dose Aspirin) atorvastatin 20 mg tablet (Lipitor) 20 mg PO HS 10/12/24 10/12/24 History cetirizine 10 mg capsule (All Day 10 mg PO DAILY 10/12/24 10/12/24 History Allergy (cetirizine)) Laboratory Tests 10/14/24 10/14/24 10/15/24 09:58 13:25 04:21 WBC 10.2 H K/mm3 8.4 K/mm3 (4.5-10.0) (4.5-10.0) RBC 4.98 M/mm3 4.68 M/mm3 (4.6-6.20) (4.6-6.20) Hgb 14.6 g/dL 13.5 L g/dL (14.0-18.0) (14.0-18.0) Hct 43.5 % 41.4 L % (42.0-52.0) (42.0-52.0) MCV 87.3 fl 88.5 fl (80-100) (80-100) MCH 29.3 pg 28.8 pg (26-34) (26-34) MCHC 33.6 g/dl 32.6 g/dl (32-36) (32-36) RDW 12.7 % 12.7 % (11.5-14.5) (11.5-14.5) Plt Count 218 k/mm3 209 k/mm3 (150-375) (150-375) MPV 10.3 fl 11.0 H fl (7.4-10.4) (7.4-10.4) Sodium 136 L mmol/L 136 L mmol/L (137-145) (137-145) Potassium 3.9 mmol/L 3.8 mmol/L (3.4-5.0) (3.4-5.0) Chloride 102 mmol/L 105 mmol/L (98-107) (98-107) Carbon Dioxide 28 mmol/L 22 mmol/L (22-30) (22-30) Anion Gap 6 mmol/L 9 mmol/L (4-12) (4-12) BUN 10 mg/dL 9 mg/dL (9-20) (9-20) Creatinine 0.84 mg/dL 0.73 mg/dL (0.7-1.3) (0.7-1.3) Estim Creat Clear Calc 81 ml/min 92 ml/min Estimated GFR > 60 > 60 (59 - ) (59 - ) Glucose 175 H mg/dL 163 H mg/dL (65-110) (65-110) Calcium 8.6 mg/dL 8.2 L mg/dL (8.4-10.2) (8.4-10.2) Total Bilirubin 0.7 mg/dL 0.6 mg/dL (0.2-1.3) (0.2-1.3) AST 23 U/L 30 U/L (17-59) (17-59) ALT 31 U/L 34 U/L (6-50) (6-50) Alkaline Phosphatase 61 U/L 58 U/L (38-126) (38-126) Total Protein 7.0 g/dL 6.0 L g/dL (6.3-8.2) (6.3-8.2) Albumin 3.6 g/dL 3.3 L g/dL (3.5-5.1) (3.5-5.1) Synovial Crystals None seen (None Seen) Vancomycin Trough 10.9 ug/mL (10.0-20.0) Patient hx anesthesia problems: none Family hx anesthesia problems: none Results Review: All pre-operative results and documents have been reviewed as part of the pre-operative evaluation. [facility] Past Medical History Medical History (Updated 10/15/24 @ 08:08 by Sid Lawton MD) Cellulitis of left elbow Septic bursitis of elbow Obesity Family History Family History Mother Emphysema lung Parents Father Parents Social History Social History Smoking packs per day: 1 Smoking cigarettes per day: 20.0 Smoking status: Current every day smoker Tobacco type: cigarettes Alcohol intake: current Substance use: never Substance use type: does not use Do You Feel Safe in your Home?: Yes Lack of Transportation: No Lack of Food: Never True Current Housing: I Have Housing Concerned About Future Housing: No Difficulty Paying Gas/Electric Bills: No Difficulty Paying for Meds: No Currently Unemployed: No Education: High School Diploma/GED Difficulty w/ Childcare or Family Care: No Spiritual care concerns: No Anes - Eval Final PreProcedure Day of Procedure 10/15/24 08:08 Patient weight: obese Heart: regular rate and rhythm Lungs: clear to auscultation Airway: Mallampati scale class II Neurological: alert and oriented Last oral intake: >/= 8 hours ASA classification: III Emergent: no Anesthetic plan: proceed Anesthesia type and monitoring: general GIVS and standard monitoring Results Review: All pre-operative results and documents have been reviewed as part of the pre-operative evaluation. Informed Consent: The patient's anesthetic plan and its attendant risks and benefits were discussed with the patient/family/POA. Questions were solicited and answers provided to the satisfaction of the patient/family/POA.
--- NOTE | 2024-10-15 08:08 | PC.NURSE ---
Patient off floor to OR via wheelchair. Report given to Americo [place].
[2024-10-15] MEDS: LACTATED RINGERS 1,000 ML 30 ML IV CONT (08:30)
--- NOTE | 2024-10-15 09:28 | SUR.OPER ---
Anaerobic, aerobic and gram stain culture sent with Sowmya and received in pathology by
--- NOTE | 2024-10-15 09:34 | P.OP_ITS ---
Procedure Note - Detailed Date of Procedure 10/15/24 Pre-op Diagnosis Septic bursitis LEFT Elbow Post-op Diagnosis Same Procedure Performed Irrigation and debridement left elbow bursa Surgeon Anatoliy Fatima MD [employer] Assistant ASHLEY Anesthesia General Indications Septic Bursitis Findings Pus Description of Procedure Patient brought to operating room 8. A general anesthetic was administered. He was sterilely prepped and draped in usual manner. Longitudinal incision made over the left elbow. Dissection carried down to the bursa. Purulence was found and a culture sent. I proceeded to do a bursectomy. This removed most of the degenerative tissue. The wound was then thoroughly irrigated. Hemostasis obtained. Closed with 2-0 Vicryl and 3-0 Prolene. The closure was loose to allow for drainage. Patient left the operative room satisfactory condition. Complications No immediate complications Condition Stable Disposition PACU [facility] Billing Surgery - Charge Forward: Surgery Billing ([id number])
[2024-10-15] MEDS: HYDROmorphone HCL INJ (*CRX) 1 MG/ML SYR 0.25 MG IV PUSH ×6 (10:14→12:04)
--- NOTE | 2024-10-15 11:42 | SUR.PHASEI ---
1130: RN tried to give report to floor RN and he/she will have to call back.
--- NOTE | 2024-10-15 12:20 | PC.NURSE ---
Patient returned to floor from PACU via stretcher. No patient complaints at this time. Spouse at bedside.
[2024-10-15] MEDS: HYDROcodone/acetaminophen (*CRX) 5-325 MG TABLET 1 TAB PO (13:15)
[2024-10-15] MEDS: AMOXICILLIN/CLAVULANATE K 875-125 MG TAB 1 TABLET PO ×2 (13:15→20:35)
[2024-10-15] MEDS: LINEZOLID 600 MG TABLET PO ×2 (13:15→20:35)
--- NOTE | 2024-10-15 15:37 | P.PNIM_ITS ---
Progress Note: A&P Assessment and Plan (1) Abscess of bursa of elbow: Qualifiers: Laterality: left Qualified Code(s): M71.022 - Abscess of bursa, left elbow Code(s): M71.029 - Abscess of bursa, unspecified elbow Status: Acute (2) Hyperglycemia: Code(s): R73.9 - Hyperglycemia, unspecified Status: Acute Plan This is a pleasant 69-year-old male with history of hyperlipidemia, tobacco dependence, reports to [facility] on 10/12/2024 complaining of progressively worsening left elbow swelling pain tingling and redness. This happened over a few weeks while he was at home in [place] and he presented to an urgent care and was told he had an elbow effusion and given prednisone. He took prednisone for 5 days however continue to worsen. He then came to the local area for his daughter's high school graduation and his symptoms became worse. The redness and swelling have now expanded down the arm to his wrist on the posterior side. He denies any trauma. Denies any history of arthritis. Denies personal history or family history of diabetes. He denies any subjective or objective fever. Denies any other symptoms whatsoever. ER evaluation demonstrated blood pressure 131/76, heart rate 72, temperature 98.6? F, WBC 11.3, hemoglobin 14.9, platelets 227, INR 1.1, glucose 214, lactic acid 2.3 than 2.0 status post fluid resuscitation, C reactive protein 6.8. CT of left upper extremity demonstrating abscess seen posterior to the ulnar olecranon measuring 2.6 x 3.6 cm and a probable fracture of the radial head. As mentioned above he was given fluid resuscitation in the form of normal saline in 1 L, vancomycin, morphine 4 mg IV x1, cefepime 2 g IV x1. Orthopedic surgery consulted from ER. ----- Left elbow bursitis Underwent aspiration with Radiology on 10/14 Underwent irrigation and debridement with Orthopedics Status post cefepime and vancomycin Started Augmentin and linezolid Repeat upper extremity ultrasound to rule out DVT Subjective Date/time seen: 10/15/24 15:37 Interval history: patient underwent irrigation and debridement left elbow today. Patient antibiotic has been de-escalated to Augmentin and linezolid. Possible discharge tomorrow. Repeat upper extremity ultrasound to rule out DVT Review of Systems Review of Systems: All systems reviewed & are unremarkable except as noted in HPI and below (HPI) Exam Const: General: comfortable and no acute distress Other: A&O x3 HENMT: Mouth: Yes moist mucous membranes Eyes: Pupils: Equal, round and reactive pupils present Neck: Neck: supple Resp: Effort & Inspection: normal respiratory effort Auscultation: clear to auscultation bilaterally Cardio: Rate: regular rate Rhythm: regular rhythm Heart sounds: no murmurs GI: Other: Protuberant abdomen Neuro: Cranial nerves: Yes Equal, round and reactive pupils present Motor exam (neuro): 5/5 motor strength present throughout Sensory Exam: normal sensation Extrem: Other: Left upper extremity full range of motion. Erythema edema warmth and tenderness to palpation over the olecranon. Mostly edema extending down the forearm with slight erythema. Neurovascular exam is intact. Objective Data Vital Signs Vital Signs: Vital Signs - 24 hr 10/14/24 20:00 10/14/24 20:41 10/14/24 21:42 Temperature 98.3 F Pulse Rate 61 61 Respiratory Rate 20 20 Blood Pressure 129/63 Pulse Oximetry 97 95 97 Oxygen Delivery Room Air Room Air Fraction of Inspired Oxygen 21 21 10/15/24 04:54 10/15/24 07:45 10/15/24 08:30 Temperature 97.7 F 97.7 F Pulse Rate 57 L 56 L Respiratory Rate 18 16 Blood Pressure 109/56 L 123/68 Pulse Oximetry 96 98 Oxygen Delivery Room Air Room Air Fraction of Inspired Oxygen 10/15/24 09:42 10/15/24 09:55 10/15/24 10:10 Temperature 97.6 F Pulse Rate 61 59 L 63 Respiratory Rate 14 23 H 23 H Blood Pressure 112/91 H 132/75 132/71 Pulse Oximetry 96 97 98 Oxygen Delivery Room Air Room Air Room Air Fraction of Inspired Oxygen 10/15/24 10:25 10/15/24 10:40 10/15/24 10:55 Temperature Pulse Rate 57 L 56 L 55 L Respiratory Rate 14 15 15 Blood Pressure 130/75 120/73 128/76 Pulse Oximetry 97 96 96 Oxygen Delivery Room Air Room Air Room Air Fraction of Inspired Oxygen 10/15/24 11:10 10/15/24 11:25 10/15/24 11:40 Temperature Pulse Rate 55 L 57 L 56 L Respiratory Rate 12 12 16 Blood Pressure 118/74 126/78 117/70 Pulse Oximetry 98 96 96 Oxygen Delivery Room Air Room Air Room Air Fraction of Inspired Oxygen 10/15/24 11:55 10/15/24 12:30 10/15/24 12:40 Temperature 97.6 F Pulse Rate 57 L 55 L Respiratory Rate 15 16 Blood Pressure 126/71 130/65 Pulse Oximetry 97 99 97 Oxygen Delivery Room Air Room Air Fraction of Inspired Oxygen 10/15/24 12:55 10/15/24 13:25 10/15/24 15:13 Temperature 97.9 F 98.4 F 98.3 F Pulse Rate 55 L 59 L 58 L Respiratory Rate 16 16 16 Blood Pressure 117/65 126/60 105/59 L Pulse Oximetry 97 97 97 Oxygen Delivery Fraction of Inspired Oxygen Intake/Output Intake/Output: Intake & Output 10/12/24 10/13/24 10/14/24 10/15/24 23:59 23:59 23:59 23:59 Intake Total 766 1390 3600 930 Output Total 4 Balance 766 1390 3596 930 Meds/Results Medications: Active Medications Generic Name Dose Route Start Last Admin Trade Name Freq PRN Reason Stop Dose Admin Acetaminophen 650 mg 10/15/24 02:44 Acetaminophen 325 Mg Tablet PO Q6H PRN Mild Pain (1-3) or Fever Hydrocodone Bitart/Acetaminophen 1 tab 10/15/24 02:44 10/15/24 13:15 Hydrocodone/Acetaminophen (*Crx) 5-325 Mg Tablet PO 1 tab Q6H PRN Administration Pain Rated 4-6 Hydrocodone Bitart/Acetaminophen 1 tab 10/15/24 12:04 Hydrocodone/Acetaminophen (*Crx) 7.5-325 Mg Tablet PO Q4H PRN Pain Rated 7-10 Amoxicillin/Clavulanate Potassium 1 tablet 10/15/24 09:00 10/15/24 13:15 Amoxicillin/Clavulanate K 875-125 Mg Tab PO 10/28/24 21:01 1 tablet Q12HR PAULA Administration Atorvastatin Calcium 20 mg 10/12/24 21:30 10/14/24 21:06 Atorvastatin 20 Mg Tablet PO 20 mg HS PAULA Administration Linezolid 600 mg 10/15/24 09:00 10/15/24 13:15 Linezolid 600 Mg Tablet PO 10/28/24 21:01 600 mg Q12HR PAULA Administration Loratadine 10 mg 10/13/24 09:00 10/15/24 07:52 Loratadine 10 Mg Tablet PO Not Given QAM PAULA Morphine Sulfate 2 mg 10/12/24 20:21 10/15/24 02:14 Morphine Sulfate (*Crx) 2 Mg/Ml Inj IV PUSH 2 mg Q2H PRN Administration Pain Rated 7-10 Nicotine 1 patch 10/12/24 21:31 Nicotine (*Pbkc) 21 Mg Patch TRANSDERM DAILY PRN Smoking craving Ondansetron HCl 4 mg 10/12/24 20:21 Ondansetron Inj 4 Mg/2 Ml Vial IV PUSH Q4H PRN Nausea Radiology Results: ITS Impressions Elbow X-Ray 10/12/24 18:39 IMPRESSION: Highly suggestive fracture in the radial head. Soft tissue swelling seen posteriorly with lucencies which may indicate cellulitis. Clinical correlation advised. Venous Doppler Study 10/12/24 18:49 IMPRESSION: Negative left upper extremity venous US. No deep vein thrombosis. Upper Extremity CT 10/12/24 19:44 IMPRESSION: Abscess seen posterior to the ulnar olecranon measuring 2.6 x 3.6 cm. Further evaluation advised. No evidence of osteomyelitis. Highly suggestive fracture of the radial head. Joint Aspiration/Injection 10/14/24 13:54 IMPRESSION: 1. Successful Ultrasound-guided aspiration of a left olecranon bursa yielding 4.5 mL purulent appearing fluid suspicious for septic bursitis. Labs Labs: Laboratory Results - last 24 hr 10/15/24 04:21 WBC 8.4 RBC 4.68 Hgb 13.5 L Hct 41.4 L MCV 88.5 MCH 28.8 MCHC 32.6 RDW 12.7 Plt Count 209 MPV 11.0 H Sodium 136 L Potassium 3.8 Chloride 105 Carbon Dioxide 22 Anion Gap 9 BUN 9 Creatinine 0.73 Estim Creat Clear Calc 92 Estimated GFR > 60 Glucose 163 H Calcium 8.2 L Total Bilirubin 0.6 AST 30 ALT 34 Alkaline Phosphatase 58 Total Protein 6.0 L Albumin 3.3 L Hospitalist MIPS Advance Care Plan I have confirmed that the patient's Advanced Care Plan is present, code status is documented, or surrogate decision maker is listed in patient medical record.: Yes Medication Reconciliation I have utilized all available resources to obtain, update and review the patients current medications (includes all prescriptions, OTC, herbals, cannabis, and nutritional supplements).: Yes
[2024-10-15] MEDS: ONDANSETRON INJ 4 MG/2 ML VIAL IV PUSH (17:33)
[2024-10-15] MEDS: HYDROcodone/acetaminophen (*CRX) 7.5-325 MG TABLET 1 TAB PO ×2 (17:33→23:50)
[2024-10-15] MEDS: ATORVASTATIN 20 MG TABLET PO (20:35)
[2024-10-16 00:12] VITALS: BP 104/62; PULSE 58; RESP 20; TEMP 36.8; O2SAT 96
[2024-10-16 04:43] VITALS: BP 113/69; PULSE 57; RESP 20; TEMP 36.6; O2SAT 97
[2024-10-16 05:42] LABS: Hematocrit 40.3 % (42.0-52.0); Hemoglobin 13.3 g/dL (14.0-18.0); Mean Corpuscular Hemoglobin 28.9 pg (26-34); Mean Corpuscular Volume 87.4 fl (80-100); Mean Platelet Volume 10.2 fl (7.4-10.4); Platelet Count Result 210 k/mm3 (150-375); Red Blood Count 4.61 M/mm3 (4.6-6.20); Red Cell Distribution Width 12.6 % (11.5-14.5); White Blood Count 8.4 K/mm3 (4.5-10.0)
[2024-10-16 05:46] LABS: Alanine Aminotransferase 35 U/L (6-50); Albumin Level 3.4 g/dL (3.5-5.1); Alkaline Phosphatase 56 U/L (38-126); Anion Gap 6 mmol/L (4-12); Aspartate Amino Transferase 25 U/L (17-59); Bilirubin,Total 0.6 mg/dL (0.2-1.3); Blood Urea Nitrogen 10 mg/dL (9-20); Calcium 8.5 mg/dL (8.4-10.2); Carbon Dioxide 28 mmol/L (22-30); Chloride 101 mmol/L (98-107); Estimated CRCL calculation 83 ml/min; Estimated Glomerular Filt Rate > 60; Glucose 150 mg/dL (65-110); Sodium 135 mmol/L (137-145); Total Protein 6.2 g/dL (6.3-8.2)
[2024-10-16] MEDS: LORATADINE 10 MG TABLET PO (08:48)
[2024-10-16] MEDS: LINEZOLID 600 MG TABLET PO (08:49)
[2024-10-16] MEDS: AMOXICILLIN/CLAVULANATE K 875-125 MG TAB 1 TABLET PO (08:49)
--- NOTE | 2024-10-16 10:19 | PM.PNORT ---
Progress Note: A&P Assessment and Plan (1) Abscess of bursa of elbow: Qualifiers: Laterality: left Qualified Code(s): M71.022 - Abscess of bursa, left elbow Code(s): M71.029 - Abscess of bursa, unspecified elbow Status: Acute Assessment and Plan: Culture is growing staph Aureus. On appropriate antibiotics. When released, he will need to have Follow Up at home. Disucusse Subjective Subjective Date/Time Seen: 10/16/24 10:19 Post Op day: 1 Principal diagnosis: Septic Bursitis Review of Systems Musculoskeletal: Musculoskeletal: Reports arthralgias, Reports joint swelling and Reports stiffness Exam Narrative: Patient has mild erythema about the elbow. He does have some swelling in the elbow and forearm. He has a small collection of fluid posterior but I really do not feel much in the way of a bursa. Neurologically he is intact. Objective Data Vital Signs Vital Signs: Vital Signs - 24 hr 10/15/24 10:25 10/15/24 10:40 10/15/24 10:55 Temperature Pulse Rate 57 L 56 L 55 L Respiratory Rate 14 15 15 Blood Pressure 130/75 120/73 128/76 Pulse Oximetry 97 96 96 Oxygen Delivery Room Air Room Air Room Air Fraction of Inspired Oxygen 10/15/24 11:10 10/15/24 11:25 10/15/24 11:40 Temperature Pulse Rate 55 L 57 L 56 L Respiratory Rate 12 12 16 Blood Pressure 118/74 126/78 117/70 Pulse Oximetry 98 96 96 Oxygen Delivery Room Air Room Air Room Air Fraction of Inspired Oxygen 10/15/24 11:55 10/15/24 12:30 10/15/24 12:40 Temperature 97.6 F Pulse Rate 57 L 55 L Respiratory Rate 15 16 Blood Pressure 126/71 130/65 Pulse Oximetry 97 99 97 Oxygen Delivery Room Air Room Air Fraction of Inspired Oxygen 10/15/24 12:55 10/15/24 13:25 10/15/24 15:13 Temperature 97.9 F 98.4 F 98.3 F Pulse Rate 55 L 59 L 58 L Respiratory Rate 16 16 16 Blood Pressure 117/65 126/60 105/59 L Pulse Oximetry 97 97 97 Oxygen Delivery Fraction of Inspired Oxygen 10/15/24 20:00 10/15/24 20:09 10/16/24 00:12 Temperature 97.8 F 98.2 F Pulse Rate 61 61 58 L Respiratory Rate 20 20 20 Blood Pressure 122/62 104/62 Pulse Oximetry 97 97 96 Oxygen Delivery Room Air Fraction of Inspired Oxygen 10/16/24 04:43 10/16/24 08:50 Temperature 97.8 F Pulse Rate 57 L Respiratory Rate 20 Blood Pressure 113/69 Pulse Oximetry 97 Oxygen Delivery Room Air Fraction of Inspired Oxygen Intake/Output Intake/Output: Intake & Output 10/13/24 10/14/24 10/15/24 10/16/24 23:59 23:59 23:59 23:59 Intake Total 1390 3600 1050 580 Output Total 4 Balance 1390 3596 1050 580 Meds/Results Medications: Active Medications Generic Name Dose Route Start Last Admin Trade Name Freq PRN Reason Stop Dose Admin Acetaminophen 650 mg 10/15/24 02:44 Acetaminophen 325 Mg Tablet PO Q6H PRN Mild Pain (1-3) or Fever Hydrocodone Bitart/Acetaminophen 1 tab 10/15/24 02:44 10/15/24 13:15 Hydrocodone/Acetaminophen (*Crx) 5-325 Mg Tablet PO 1 tab Q6H PRN Administration Pain Rated 4-6 Hydrocodone Bitart/Acetaminophen 1 tab 10/15/24 12:04 10/15/24 23:50 Hydrocodone/Acetaminophen (*Crx) 7.5-325 Mg Tablet PO 1 tab Q4H PRN Administration Pain Rated 7-10 Amoxicillin/Clavulanate Potassium 1 tablet 10/15/24 09:00 10/16/24 08:49 Amoxicillin/Clavulanate K 875-125 Mg Tab PO 10/28/24 21:01 1 tablet Q12HR PAULA Administration Atorvastatin Calcium 20 mg 10/12/24 21:30 10/15/24 20:35 Atorvastatin 20 Mg Tablet PO 20 mg HS PAULA Administration Linezolid 600 mg 10/15/24 09:00 10/16/24 08:49 Linezolid 600 Mg Tablet PO 10/28/24 21:01 600 mg Q12HR PAULA Administration Loratadine 10 mg 10/13/24 09:00 10/16/24 08:48 Loratadine 10 Mg Tablet PO 10 mg QAM PAULA Administration Morphine Sulfate 2 mg 10/12/24 20:21 10/15/24 02:14 Morphine Sulfate (*Crx) 2 Mg/Ml Inj IV PUSH 2 mg Q2H PRN Administration Pain Rated 7-10 Nicotine 1 patch 10/12/24 21:31 Nicotine (*Pbkc) 21 Mg Patch TRANSDERM DAILY PRN Smoking craving Ondansetron HCl 4 mg 10/12/24 20:21 10/15/24 17:33 Ondansetron Inj 4 Mg/2 Ml Vial IV PUSH 4 mg Q4H PRN Administration Nausea Radiology Results: ITS Impressions Elbow X-Ray 10/12/24 18:39 IMPRESSION: Highly suggestive fracture in the radial head. Soft tissue swelling seen posteriorly with lucencies which may indicate cellulitis. Clinical correlation advised. Venous Doppler Study 10/12/24 18:49 IMPRESSION: Negative left upper extremity venous US. No deep vein thrombosis. Upper Extremity CT 10/12/24 19:44 IMPRESSION: Abscess seen posterior to the ulnar olecranon measuring 2.6 x 3.6 cm. Further evaluation advised. No evidence of osteomyelitis. Highly suggestive fracture of the radial head. Joint Aspiration/Injection 10/14/24 13:54 IMPRESSION: 1. Successful Ultrasound-guided aspiration of a left olecranon bursa yielding 4.5 mL purulent appearing fluid suspicious for septic bursitis. Labs Labs: Laboratory Results - last 24 hr 10/16/24 05:12 WBC 8.4 RBC 4.61 Hgb 13.3 L Hct 40.3 L MCV 87.4 MCH 28.9 MCHC 33.0 RDW 12.6 Plt Count 210 MPV 10.2 Sodium 135 L Potassium 4.0 Chloride 101 Carbon Dioxide 28 Anion Gap 6 BUN 10 Creatinine 0.82 Estim Creat Clear Calc 83 Estimated GFR > 60 Glucose 150 H Calcium 8.5 Total Bilirubin 0.6 AST 25 ALT 35 Alkaline Phosphatase 56 Total Protein 6.2 L Albumin 3.4 L
--- NOTE | 2024-10-16 11:09 | P.DS_ITS ---
DS: Admitting Diagnosis Discharge Date 10/16/2024 Admitting Diagnosis Abscess of bursa of elbow DS: Discharge Diagnosis Discharge Diagnosis (1) Abscess of bursa of elbow: Qualifiers: Laterality: left Qualified Code(s): M71.022 - Abscess of bursa, left elbow Code(s): M71.029 - Abscess of bursa, unspecified elbow Status: Acute (2) Hyperglycemia: Code(s): R73.9 - Hyperglycemia, unspecified Status: Acute DS: Summary Hospital Course Hospital Course: This is a pleasant 69-year-old male with history of hyperlipidemia, tobacco dependence, reports to [facility] on 10/12/2024 complaining of progressively worsening left elbow swelling pain tingling and redness. This happened over a few weeks while he was at home in [place] and he presented to an urgent care and was told he had an elbow effusion and given prednisone. He took prednisone for 5 days however continue to worsen. He then came to the local area for his daughter's high school graduation and his symptoms became worse. The redness and swelling have now expanded down the arm to his wrist on the posterior side. He denies any trauma. Denies any history of arthritis. Denies personal history or family history of diabetes. He denies any subjective or objective fever. Denies any other symptoms whatsoever. ER evaluation demonstrated blood pressure 131/76, heart rate 72, temperature 98.6? F, WBC 11.3, hemoglobin 14.9, platelets 227, INR 1.1, glucose 214, lactic acid 2.3 than 2.0 status post fluid resuscitation, C reactive protein 6.8. CT of left upper extremity demonstrating abscess seen posterior to the ulnar olecranon measuring 2.6 x 3.6 cm and a probable fracture of the radial head. As mentioned above he was given fluid resuscitation in the form of normal saline in 1 L, vancomycin, morphine 4 mg IV x1, cefepime 2 g IV x1. Orthopedic surgery consulted from ER. ----- Left elbow bursitis US LT:Negative left upper extremity venous US. No deep vein thrombosis. Underwent aspiration with Radiology on 10/14 Underwent irrigation and debridement with Orthopedics 10/15 Status post cefepime and vancomycin Started Augmentin and linezolid Repeat upper extremity ultrasound to rule out DVT. Wound culture grows staph aureus Augmentin until 10/28 Linezolid until 10/28 On the day of discharge, the patient was seen and examined. Vital signs were stable. Physical exam were stable and labs were reviewed at length. Discharge instructions, medications, and follow-up appointments were discussed with the patient at length and all day questions were answered. ER warnings were given. Status at Discharge Cognitive/behavioral status at discharge: Status Time Spent with Patient Time attestation: Total time spent providing and/or coordinating discharge services:45 minutes Exam Const: General: comfortable and no acute distress Other: A&O x3 HENMT: Mouth: Yes moist mucous membranes Eyes: Pupils: Equal, round and reactive pupils present Neck: Neck: supple Resp: Effort & Inspection: normal respiratory effort Auscultation: clear to auscultation bilaterally Cardio: Rate: regular rate Rhythm: regular rhythm Heart sounds: no murmurs GI: Other: Protuberant abdomen Neuro: Cranial nerves: Yes Equal, round and reactive pupils present Motor exam (neuro): 5/5 motor strength present throughout Sensory Exam: normal sensation Extrem: Other: Left upper extremity full range of motion. Erythema edema warmth and tenderness to palpation over the olecranon. Mostly edema extending down the forearm with slight erythema. Neurovascular exam is intact. DS: Data Data Completed and Pending Labs on day of discharge: Labs from last 24 hours 10/16/24 05:12 WBC 8.4 RBC 4.61 Hgb 13.3 L Hct 40.3 L MCV 87.4 MCH 28.9 MCHC 33.0 RDW 12.6 Plt Count 210 MPV 10.2 Sodium 135 L Potassium 4.0 Chloride 101 Carbon Dioxide 28 Anion Gap 6 BUN 10 Creatinine 0.82 Estim Creat Clear Calc 83 Estimated GFR > 60 Glucose 150 H Calcium 8.5 Total Bilirubin 0.6 AST 25 ALT 35 Alkaline Phosphatase 56 Total Protein 6.2 L Albumin 3.4 L Preliminary micro results at discharge 10/14/24 13:25 Anaerobic Culture - Preliminary Elbow Left Aerobic Culture - Preliminary Staphylococcus aureus 10/12/24 18:16 Blood Culture - Preliminary Blood 10/12/24 19:11 Blood Culture - Preliminary Blood Discharge Plan Discharge Attending physician on discharge: Renny Siddiqui Consulting providers: Chava Jimenez; Anatoliy Fatima Discharging Clinician: Renny Siddiqui Anticipated Discharge Date/Time: 10/16/24 11:13 Patient Disposition: Home Activity: as tolerated Diet: regular Discharge Instructions: Please perform ultrasound of left upper extremity if any signs of pain. Please closely follow with PCP,ortho and Infectious disease. Check blood pressure 1 to 2 times a day. Record and bring into your doctor for review. Call your doctor if your blood pressure is greater than 180/110 or less than 90/45. Take precautions to avoid falls. Rise slowly from a lying or sitting position. Pause before standing or walking. Contact your doctor or call 911 and come to the Emergency Room if you have any type of fever,arm swelling, trauma, lightheadedness with standing or other worrisome symptoms. Avoid NSAIDs (ibuprofen, naproxen, Aleve). Tylenol is safe to take. Follow-up with your primary care provider in 1-2 weeks. Please call for appointment. Thank you for using [facility] for your health care needs. Patient Instructions: Antibiotic Form Patient Language: Norwegian Stand Alone Forms: General Discharge Information Follow-up/Referrals: Anatoliy Fatima MD [Physician] - PHYSICIAN NOT ON STAFF,NONSTAFF [Primary Care Provider] - Chava Jimenez MD [Physician] - Discharge Medications: New linezolid 600 mg Tablet 600 mg PO Q12HR Qty: 26 0RF Rx Instructions: Please complete the course until 10/28 amoxicillin-pot clavulanate 875-125 mg tablet 1 tablet PO Q12H Qty: 26 0RF Rx Instructions: Please complete the course until 10/28 Saccharomyces boulardii [Florastor] 250 mg capsule 250 mg PO BID Qty: 30 0RF Continued atorvastatin [Lipitor] 20 mg tablet 20 mg PO HS aspirin [Shirley Chewable Aspirin] 81 mg tablet,chewable 81 mg PO DAILY All Day Allergy (cetirizine) 10 mg capsule 10 mg PO DAILY Date of admission: 10/13/24 07:55 Primary Care Provider: PHYSICIAN NOT ON STAFF,NONSTAFF Admitting Provider: Suellen Leone Attending physician on admission: Suellen Leone Condition: Stable
== END 2024-10-16 14:29 | disposition home or self-care (01) | DRG 501 ==
LOC: ANHED 20:20 → ANH2MED 20:52
PROVIDERS: Orthopaedic Surgery; Radiology Diagnostic Radiology; Admitting Provider General Practice; Emergency Provider Physician Assistant; Visit Provider General Practice
PROC: 0MB40ZZ Excision of Left Elbow Bursa and Ligament, Open Approach (ICD-10-PCS; principal; 2024-10-15 15:00)
DX: M71.022 Abscess of bursa, left elbow (principal); L03.114 Cellulitis of left upper limb; B95.61 Methicillin susceptible Staphylococcus aureus infection as the cause of diseases classified elsewhere; E78.5 Hyperlipidemia, unspecified; F17.210 Nicotine dependence, cigarettes, uncomplicated; R73.9 Hyperglycemia, unspecified; Z79.82 Long term (current) use of aspirin
CPT/HCPCS: 20606; 36415; 73080; 73201; 80048; 80053; 80202; 83036; 83605; 83735; 85025; 85027; 85610; 85652; 85730; 86140; 87040; 87070; 87075; 87181; 87205; 87641; 89060; 93971; 96361; 96365; 96366; 96375; 99285; A4565; A9270; G0378; J0692; J1171; J1885; J2270; J2405; J2704; J3370; J7030; J7120; Q9967